=== PATIENT | female | born 1985 | race Caucasian/White ===

== ENCOUNTER 2018-09-01 18:27 | Inpatient (IN) | payer OTHER ==
[2018-09-01] MEDS ORDERED: LIDOCAINE 0.5% (PF) 5 MG/ML (50 ML SDV) SQ PRN (18:49)
[2018-09-01] MEDS ORDERED: TERBUTALINE 1 MG/ML VIAL SQ PRN (18:49)
[2018-09-01] MEDS ORDERED: METHYLERGONOVINE 0.2 MG/ML 1 ML AMP IM PRN (18:49)
[2018-09-01] MEDS ORDERED: CARBOPROST TROMETHAMINE 250 MCG/ML 1 ML AMP IM PRN (18:49)
[2018-09-01] MEDS ORDERED: OXYTOCIN 10 UNIT/ML 1 ML VIAL IM PRN (18:49)
--- NOTE | 2018-09-01 19:27 | P.HPOB ---
History of Present Illness H&P Date: 09/01/18 Chief Complaint: IUP @ 39 3/7 weeks, labor This is a pleasant 33-year-old 3 para 2001 at 39 3/7 weeks that presents to labor and delivery with complaints of painful contractions every 7 minutes. Patient denies loss of fluid or vaginal bleeding. Patient was checked in the office today noted to be 4/80/-2. Patient notes good movement. Patient has been receiving routine care with myself, she does struggle with anxiety and depression that are controlled with oral medications. On her anatomy ultrasound the fetus was noted to have dilated renal pelvis on further ultrasounds this finding resolved. On blood work she has a blood type of O+, rubella immune, RPR nonreactive, hepatitis B surface antigen negative, HIV negative, 1 hour Glucola was elevated at 145 but she did pass her 3 hour subsequently. Group beta strep was negative on 08/06/18. Review of Systems Constitutional: Denies chills, Denies fatigue, Denies fever Ears, nose, mouth and throat: Denies headache Cardiovascular: Reports leg edema Respiratory: Denies dyspnea Gastrointestinal: Denies nausea, Denies vomiting Genitourinary: Reports Past Medical History History of Any Multi-Drug Resistant Organisms: None Reported Smoking Status: Never smoker Medications and Allergies Home Medications Medication Instructions Recorded Confirmed Type Pnv,Calcium 72/Iron/Folic Acid 1 each PO DAILY 09/01/18 09/01/18 History [ Plus Tablet] buPROPion HCL [Wellbutrin XL] 300 mg PO HS 09/01/18 09/01/18 History busPIRone HCL 10 mg PO BID 09/01/18 09/01/18 History Allergies Allergy/AdvReac Type Severity Reaction Status Date / Time No Known Allergies Allergy Verified 09/01/18 18:44 Exam Osteopathic Statement: *. No significant issues noted on an osteopathic structural exam other than those noted in the History and Physical/Consult. Vital Signs Temp Pulse Resp BP Pulse Ox 09/01/18 19:03 97.5 F L 101 H 20 133/79 97 Intake and Output 09/01/18 09/01/18 09/01/18 06:59 14:59 22:59 Other: Weight 92.986 kg In general this is a well-nourished well-developed female in no acute distress, abdomen is noted to be gravid and appropriate for gestational age heart tones are noted to be reactive/category 1 she is cece irregularly, on cervical exam per RN /-2. Assessment and Plan (1) Term Current Visit: Yes Status: Acute Code(s): Z34.90 - ENCNTR FOR SUPRVSN OF NORMAL , UNSP, UNSP TRIMESTER SNOMED Code(s): 52905137 (2) Active labor Current Visit: Yes Status: Acute Code(s): MDH8700 - SNOMED Code(s): 983967842 Plan: Patient is admitted to labor and delivery for expectant management. She is considering epidural for pain control. Anticipate spontaneous vaginal delivery.
[2018-09-01] MEDS: LACTATED RINGERS 1,000 ML IV SCH ×2 (19:29→20:44)
[2018-09-01 19:52] LABS: Basophils % (A) 0 %; Eosinophils # (A) 0.1 k/uL (0-0.7); Eosinophils % (A) 1 %; HCT 39.7 % (34.0-46.0); HGB 12.8 gm/dL (11.4-16.0); Lymphocytes # (A) 1.8 k/uL (1.0-4.8); Lymphocytes % (A) 13 %; MCH 26.1 pg (25.0-35.0); MCHC 32.2 g/dL (31.0-37.0); MCV 80.8 fL (80.0-100.0); Mean Platelet Volume 6.7; Monocytes # (A) 0.7 k/uL (0-1.0); Monocytes % (A) 5 %; Neutrophils # (A) 11.2 k/uL (1.3-7.7); Neutrophils % (A) 79 %; Platelet Count 361 k/uL (150-450); RBC 4.91 m/uL (3.80-5.40); RDW 13.7 % (11.5-15.5); WBC 14.1 k/uL (3.8-10.6)
[2018-09-01 19:58] VITALS: BMI 32.1
[2018-09-01] MEDS ORDERED: ROPIVACAINE 5MG/ML 20ML VIAL ONE (20:17)
[2018-09-01] MEDS ORDERED: fentaNYL (PF) 50 MCG/ML 5 ML AMP ONE (20:17)
[2018-09-01] MEDS ORDERED: SODIUM CHLORIDE 0.9% 100 ML BAG ONE (20:17)
[2018-09-01] MEDS: buPROPion XL 300 MG TAB.ER.24H PO SCH (20:42)
[2018-09-01] MEDS: busPIRone HCl 10 MG TAB PO SCH (20:42)
[2018-09-01] MEDS ORDERED: OXYTOCIN 30 UNITS/500 ML NS 30 UNIT in SALINE 1 500ML.BAG IV SCH (20:45)
[2018-09-01] MEDS ORDERED: BENZOCAINE/MENTHOL SPRAY 1 GM/SPRAY AEROSOL TOPICAL PRN (21:42)
[2018-09-01] MEDS ORDERED: diphenhydrAMINE 25 MG CAP PO PRN (21:42)
[2018-09-01] MEDS ORDERED: diphenhydrAMINE 50 MG/ML 1 ML VIAL IVP PRN ×2 (21:42)
[2018-09-01] MEDS ORDERED: WITCH HAZEL 1 EACH MED..PAD TOPICAL PRN (21:42)
[2018-09-01] MEDS ORDERED: diphenhydrAMINE 50 MG CAP PO PRN (21:42)
[2018-09-01] MEDS ORDERED: HYDROcodone/APAP 5-325MG 1 EACH TAB PO PRN (21:42)
[2018-09-01] MEDS ORDERED: SIMETHICONE 80 MG CHEWABLE PO PRN (21:42)
[2018-09-01] MEDS ORDERED: LANOLIN CREAM 5 GM TUBE TOPICAL PRN (21:42)
[2018-09-01] MEDS ORDERED: HYDROCORTISONE 2.5% RECTAL CREAM 30 GM TUBE RECTAL PRN (21:42)
[2018-09-01] MEDS ORDERED: ZOLPIDEM 5 MG TAB PO PRN (21:42)
[2018-09-01] MEDS ORDERED: OXYTOCIN 20 UNITS/1000 ML NS 1,000 ML IV SCH (21:45)
--- NOTE | 2018-09-01 21:49 | P.PROBDLV ---
Vaginal Delivery Note - . Vaginal Delivery Note: This is a pleasant 33-year-old 3 para 2001 at 39-4/7 weeks that presents to labor and delivery with complaints of regular painful contractions. Patient was admitted became uncomfortable requested epidural placement by anesthesia. Patient's epidural was placed without difficulty by the anesthesia department. Soon after epidural was placed and she was comfortable amniotomy was performed and clear fluid was obtained. Patient patient's contractions were noted to be spaced out therefore Pitocin augmentation of labor was begun. Patient progressed to complete began pushing and had a normal spontaneous vaginal delivery of a viable male infant at 2126, weight of 7 lbs. 15 oz. with Apgars of 9 and 9 at one and 5 minutes respectively. After a two-minute delayed the umbo cord was doubly clamped and cut and the placenta was delivered spontaneously intact with a three-vessel cord being noted. Afterwards the uterus was noted to be firm and below the umbilicus. On inspection the patient's vaginal vault a small superficial laceration was noted this was repaired with a [id number] suture of 0 Vicryl. The vaginal vault was inspected once again hemostasis was appreciated throughout no further lacerations were noted. Estimated blood loss 200 mL, patient and infant tolerated delivery well and are resting comfortably.
[2018-09-02] MEDS: IBUPROFEN 600 MG TAB PO PRN ×4 (00:24→20:45)
[2018-09-02 07:28] LABS: Basophils % (A) 0 %; Eosinophils # (A) 0.1 k/uL (0-0.7); Eosinophils % (A) 1 %; HCT 33.8 % (34.0-46.0); HGB 10.9 gm/dL (11.4-16.0); Lymphocytes # (A) 1.5 k/uL (1.0-4.8); Lymphocytes % (A) 13 %; MCH 26.4 pg (25.0-35.0); MCHC 32.2 g/dL (31.0-37.0); Mean Platelet Volume 6.7; Monocytes # (A) 0.8 k/uL (0-1.0); Monocytes % (A) 7 %; Neutrophils # (A) 8.7 k/uL (1.3-7.7); Neutrophils % (A) 76 %; Platelet Count 301 k/uL (150-450); RBC 4.13 m/uL (3.80-5.40); RDW 13.8 % (11.5-15.5); WBC 11.4 k/uL (3.8-10.6)
[2018-09-02] MEDS: SENNOSIDES-DOCUSATE SODIUM 1 EACH TAB PO SCH ×2 (08:18→20:45)
[2018-09-02] MEDS: busPIRone HCl 10 MG TAB PO SCH ×2 (09:07→20:45)
--- NOTE | 2018-09-02 09:22 | P.PNOBGVD ---
Subjective - Subjective Principal diagnosis: PPD 1 Interval history: Patient is doing well status post normal spontaneous vaginal delivery. She is a billing and voiding without difficulty. She states her lochia is moderate, she is breast-feeding without difficulty. She states her pain is well-controlled. She denies concerns Patient reports: Reports appetite normal, Reports voiding normally, Reports pain well controlled : doing well Objective - Latest Vital Signs Latest vital signs: Vital Signs Temp Pulse Resp BP Pulse Ox 09/02/18 08:00 97.9 F 107 H 18 147/89 09/02/18 04:00 97.9 F 92 16 121/79 09/01/18 23:40 98.7 F 86 16 125/71 09/01/18 23:05 82 16 119/62 09/01/18 22:40 96 16 126/60 09/01/18 22:20 97 16 137/69 09/01/18 22:05 91 16 127/65 09/01/18 21:55 95 16 134/62 09/01/18 21:40 97.8 F 111 H 16 131/61 09/01/18 19:28 97.5 F L 101 H 16 133/79 09/01/18 19:03 97.5 F L 101 H 20 133/79 97 Intake and Output 09/01/18 09/02/18 09/02/18 22:59 06:59 14:59 Intake Total 1000 Balance 1000 Intake: Intake, IV Titration 1000 Amount Lactated Ringers 1,000 ml 1000 @ 125 mls/hr IV .Q8H [facility] Rx#:[id number] Other: # Voids 1 1 Weight 92.986 kg - Exam Extremities: Present: normal Abdomen: Present: normal appearance, soft Uterus: Present: normal, firm - Labs Labs: Abnormal Lab Results - Last 24 Hours (Table) 09/01/18 09/02/18 Range/Units 19:35 06:24 WBC 14.1 H 11.4 H (3.8-10.6) k/uL Hgb 10.9 L (11.4-16.0) gm/dL Hct 33.8 L (34.0-46.0) % Neutrophils # 11.2 H 8.7 H (1.3-7.7) k/uL Assessment and Plan (1) Term Current Visit: Yes Status: Acute Code(s): Z34.90 - ENCNTR FOR SUPRVSN OF NORMAL , UNSP, UNSP TRIMESTER SNOMED Code(s): 72173592 (2) Active labor Current Visit: Yes Status: Acute Code(s): NMC6065 - SNOMED Code(s): 1182 59131 (3) Status post vaginal delivery Current Visit: Yes Status: Acute Code(s): JLB0004 - SNOMED Code(s): 201764446 Plan: Will continue routine care.
[2018-09-02] MEDS: PRENATAL VIT-IRON-FOLIC ACID 1 EACH CAP PO SCH (11:18)
[2018-09-02] MEDS: ACETAMINOPHEN TAB 325 MG TAB PO PRN (15:57)
[2018-09-02] MEDS: buPROPion XL 300 MG TAB.ER.24H PO SCH (20:45)
[2018-09-03 00:44] VITALS: RESP 16
--- NOTE | 2018-09-03 08:03 | P.DS ---
Providers Date of admission: 09/01/18 18:49 Expected date of discharge: 09/03/18 Attending physician: Didi Dickinson Primary care physician: Stated None - Discharge Diagnosis(es) (1) Term Current Visit: Yes Status: Acute (2) Active labor Current Visit: Yes Status: Acute (3) Status post vaginal delivery Current Visit: Yes Status: Acute Hospital Course: This is a pleasant 33-year-old 3 para 2001 at 39-4/7 weeks that presented to labor and delivery with complaints of regular painful contractions. Patient was admitted became uncomfortable and requesting epidural placement by the anesthesia department. This was placed without difficulty. Patient progressed to complete began pushing and had a normal spontaneous vaginal delivery of a viable male infant at 2126, weight of 7 lbs. 15 oz. with Apgars of 9 and 9 at one and 5 minutes respectively. Patient has done well . She is ambulating and voiding without difficulty. She is tolerating a regular diet without nausea or vomiting. Her lochia is moderate. She is breast- feeding/pumping as the infant is in the nursery secondary to jaundice. She denies concerns this morning and is ready for discharge home. Patient Condition at Discharge: Good Plan - Discharge Summary Discharge Rx Participant: Yes New Discharge Prescriptions: No Action busPIRone HCL 10 mg PO BID buPROPion HCL [Wellbutrin XL] 300 mg PO HS Pnv,Calcium 72/Iron/Folic Acid [ Plus Tablet] 1 each PO DAILY Discharge Medication List Pnv,Calcium 72/Iron/Folic Acid [ Plus Tablet] 1 each PO DAILY 09/01/18 [History] buPROPion HCL [Wellbutrin XL] 300 mg PO HS 09/01/18 [History] busPIRone HCL 10 mg PO BID 09/01/18 [History] Follow up Appointment(s)/Referral(s): Didi Dickinson DO [Doctor of Osteopathic Medicine] - 4 Weeks Patient Instructions/Handouts: Vaginal Delivery (DC), Vaginal Delivery (GEN) Discharge Disposition: HOME SELF-CARE
[2018-09-03] MEDS: busPIRone HCl 10 MG TAB PO SCH (08:18)
[2018-09-03] MEDS: SENNOSIDES-DOCUSATE SODIUM 1 EACH TAB PO SCH (08:19)
[2018-09-03] MEDS: ACETAMINOPHEN TAB 325 MG TAB PO PRN (08:19)
[2018-09-03] MEDS: PRENATAL VIT-IRON-FOLIC ACID 1 EACH CAP PO SCH (09:50)
[2018-09-03 12:46] VITALS: BP 132/79; PULSE 92; TEMP 97.8
== END 2018-09-03 14:18 | disposition home or self-care (01) | DRG 807 ==
LOC: FBPOP 18:27 → 4FBP 18:49 → 6PED 09-03 06:44
PROVIDERS: ADMIT Obstetrics & Gynecology; ATTEND Obstetrics & Gynecology Obstetrics
DX: O71.4 Obstetric high vaginal laceration alone (principal); Z37.0 Single live birth; Z3A.39 39 weeks gestation of pregnancy; F32.9 Major depressive disorder, single episode, unspecified; F41.9 Anxiety disorder, unspecified; O99.344 Other mental disorders complicating childbirth; Z79.899 Other long term (current) drug therapy
CPT/HCPCS: 59025; 85025; 86850; 86900; 86901; 99213

== ENCOUNTER → 2018-11-18 | Outpatient (CLI) | payer OTHER ==
[2018-11-18 14:59] LABS: Basophils % (A) 1 %; Eosinophils # (A) 0.1 k/uL (0-0.7); Eosinophils % (A) 2 %; HCT 41.1 % (34.0-46.0); Lymphocytes # (A) 1.6 k/uL (1.0-4.8); Lymphocytes % (A) 25 %; MCH 25.7 pg (25.0-35.0); MCHC 31.6 g/dL (31.0-37.0); MCV 81.5 fL (80.0-100.0); Mean Platelet Volume 6.2; Monocytes # (A) 0.5 k/uL (0-1.0); Monocytes % (A) 9 %; Neutrophils # (A) 3.8 k/uL (1.3-7.7); Neutrophils % (A) 61 %; Platelet Count 391 k/uL (150-450); RBC 5.05 m/uL (3.80-5.40); RDW 13.3 % (11.5-15.5); WBC 6.2 k/uL (3.8-10.6)
== END | disposition home or self-care (01) ==
LOC: LABPAT 13:48
PROVIDERS: ATTEND Obstetrics & Gynecology Obstetrics
DX: Z01.812 Encounter for preprocedural laboratory examination (principal)
CPT/HCPCS: 36415; 85025

== ENCOUNTER 2018-12-02 06:32 | Day surgery (SDC) | payer OTHER ==
[2018-11-26 08:31] VITALS: BMI 29.7
--- NOTE | 2018-12-01 13:05 | P.HPOB ---
History of Present Illness H&P Date: 12/01/18 Chief Complaint: family staus complete, undesires fertility This is a pleasant 33yo s/p on 09/01. she states she is odne with childbearing and desires permanent sterilization. menses are regular q month with a moderate flow x 3 Review of Systems Constitutional: Denies chills, Denies fatigue, Denies fever Ears, nose, mouth and throat: Denies headache Cardiovascular: Denies chest pain, Denies edema Respiratory: Denies dyspnea Gastrointestinal: Denies constipation, Denies diarrhea, Denies nausea, Denies vomiting Menstruation: Reports period normal Past Medical History Past Medical History: Sleep Apnea/CPAP/BIPAP Additional Past Medical History / Comment(s): History of Kidney Infection, Hearing impairment/issues, Migraines, History of Any Multi-Drug Resistant Organisms: None Reported Past Surgical History: Cholecystectomy Additional Past Surgical History / Comment(s): Eye Surgery Past Anesthesia/Blood Transfusion Reactions: No Reported Reaction Smoking Status: Never smoker - Past Family History Father Family Medical History: Cancer, Coronary Artery Disease (CAD), Hypertension Additional Family Medical History / Comment(s): Stomach Cancer Mother Family Medical History: Cancer Additional Family Medical History / Comment(s): Breast Cancer Medications and Allergies Home Medications Medication Instructions Recorded Confirmed Type buPROPion HCL [Wellbutrin XL] 300 mg PO HS 09/01/18 11/26/18 History busPIRone HCL 10 mg PO BID 09/01/18 11/26/18 History Allergies Allergy/AdvReac Type Severity Reaction Status Date / Time No Known Allergies Allergy Verified 11/26/18 08:25 Exam Osteopathic Statement: *. No significant issues noted on an osteopathic structural exam other than those noted in the History and Physical/Consult. targeted physical exam done in general this is a well nourished well dveloped f emale in no acute distress, lungs are CTX b/l, heart had RRR, abdomen is soft and NT Assessment and Plan (1) Family planning Status: Acute Code(s): Z30.09 - ENCOUNTER FOR OTH GENERAL CNSL AND ADVICE ON CONTRACEPTION SNOMED Code(s): 857454041 Plan: Plan LTL with falope rings, surgery reviewed and all questions answered. risks reviewed including but not limited to infection bleeding damage to bladder bowel or ureteric injury. failure rates of 2-06/999 reviewed. she states understanding and wished to proceed.
[~2018-12-02 06:32] MED LIST: DEXAMETHASONE SOD PHOSPHATE 10 MG/ML 1 ML VIAL IV ONE; LACTATED RINGERS 1,000 ML IV SCH; LIDOCAINE 1% 20 ML VIAL (10MG/ML) FOR IV START INTRADERMA PRN; MIDAZOLAM 2 MG/2 ML VIAL IV PRN; Pre Op ABX Message 1 EACH MISC MISCELLANE ONE; SCOPOLAMINE 1.5MG/72HR PATCH TRANSDERM ONE
[2018-12-02] MEDS: ONDANSETRON 4 MG/2 ML VIAL IVP ONE ×2 (07:02→08:41)
[2018-12-02] MEDS ORDERED: KETOROLAC 30 MG/ML 1 ML VIAL ONE (07:26)
[2018-12-02] MEDS ORDERED: LIDOCAINE 1% INJ 10MG/ML (20 ML MDV) ONE (07:26)
[2018-12-02] MEDS ORDERED: GLYCOPYRROLATE 0.2 MG/ML 2 ML VIAL ONE (07:26)
[2018-12-02] MEDS ORDERED: MIDAZOLAM 2 MG/2 ML VIAL ONE (07:26)
[2018-12-02] MEDS ORDERED: NEOSTIGMINE 1 MG/ML 10 ML VIAL ONE (07:26)
[2018-12-02] MEDS ORDERED: fentaNYL (PF) 50 MCG/ML 2 ML AMP ONE (07:26)
[2018-12-02] MEDS ORDERED: ROCURONIUM BROMIDE 10 MG/ML 10 ML VIAL IV ONE (07:26)
[2018-12-02] MEDS ORDERED: PROPOFOL 10 MG/ML 20 ML VIAL IV ONE (07:26)
[2018-12-02] MEDS ORDERED: BUPIVACAINE (PF) 0.25% 30 ML VIAL SQ ONE ×3 (07:39→08:03)
[2018-12-02] MEDS ORDERED: LIDOCAINE 2% GEL 30 ML TUBE TOPICAL ONE ×2 (07:39→08:03)
[2018-12-02] MEDS ORDERED: FERRIC SUBSULFATE (MONSELS) JAR TOPICAL ONE (08:20)
[2018-12-02 08:35] VITALS: TEMP 97.4
[2018-12-02] MEDS: HYDROmorphone 0.5 MG/0.5 ML SYRINGE IVP PRN ×4 (08:40→09:05)
--- NOTE | 2018-12-02 08:55 | P.OP ---
Date of Procedure: 12/02/18 Preoperative Diagnosis: undesired fertility, family status complete Postoperative Diagnosis: same Procedure(s) Performed: LTL with filshie clips Anesthesia: GETA Surgeon: Didi Dickinson Estimated Blood Loss (ml): 2 IV fluids (ml): 550 Urine output (ml): 100 Pathology: none sent Condition: stable Disposition: PACU Indications for Procedure: pt request for permanent sterilization. Operative Findings: normal pelvic anatomy. Description of Procedure: Patient is seen in the preoperative area and informed consent is obtained. Risks of tubal ligation along with failure rates are reviewed and patient states understanding all cautions were answered. Patient was taken back to the operating suite where general anesthesia is obtained without difficulty by the anesthesia department. She is prepped and draped in the normal sterile fashion in the dorsal lithotomy position. A weighted speculum was placed in the posterior vaginal vault the anterior lip of the cervix was visualized and grasped with a single-tooth tenaculum. An acorn uterine manipulator was advanced into the cervix as a means to manipulate the uterus throughout the procedure. Prior to this a red rubber catheter was used to drain the bladder under sterile technique. 100 mL of clear yellow urine was drained from the bladder. Attention was then turned to the patient's abdomen where in the umbilical fold a small skin incision is made. Through this incision appears needles placed. Once the Veress needle was deemed to be in the proper position with a drop of CO2 pressure with insufflation of CO2 gas, CO2 insufflation was allowed to occur. 3 L of gas is used to obtain pneumoperitoneum. At this time a 5 mm trocar and sleeve is placed through the skin incision toward the pneumoperitoneum under direct visualization. The trocar is removed and the sheath remains in place. On inspection the patient's pelvis the above-noted findings are visualized in the right lower quadrant and additional 8 mm port is placed under direct visualization. Through this port the filshie clip applicator is placed the left tube was grasped and the applicators used according to poultry offal worker's instructions this was repeated on the opposite side. Both tubes are noted to be occluded there is no bleeding noted from the tubal sites. At this time all instruments removed from the patient's abdomen the skin incisions are closed with 4-0 Vicryl in a subcu Fashion Steri-Strips and sterile dressings were applied as needed. Attention turned to the patient's vaginal vault the single- tooth tenaculum was taken off of the cervix small amount of bleeding is noted therefore Monsel solution is placed on the anterior lip of the cervix All counts are correct 2 patient tolerated procedure well and was taken to the recovery room awake in stable condition
[2018-12-02 09:51] VITALS: RESP 18
[2018-12-02 11:47] VITALS: BP 136/91; PULSE 82
== END 2018-12-02 11:45 | disposition home or self-care (01) ==
LOC: OR 06:32
PROVIDERS: ATTEND Obstetrics & Gynecology Obstetrics
DX: Z30.2 Encounter for sterilization (principal); G47.33 Obstructive sleep apnea (adult) (pediatric); F41.9 Anxiety disorder, unspecified; F32.9 Major depressive disorder, single episode, unspecified; G43.909 Migraine, unspecified, not intractable, without status migrainosus; H91.90 Unspecified hearing loss, unspecified ear; Z86.19 Personal history of other infectious and parasitic diseases; Z79.899 Other long term (current) drug therapy; Z91.012 Allergy to eggs; Z88.4 Allergy status to anesthetic agent; Z99.89 Dependence on other enabling machines and devices; Z90.49 Acquired absence of other specified parts of digestive tract; Z98.818 Other dental procedure status; Z98.890 Other specified postprocedural states; Z82.49 Family history of ischemic heart disease and other diseases of the circulatory system; Z80.0 Family history of malignant neoplasm of digestive organs; Z80.3 Family history of malignant neoplasm of breast
CPT/HCPCS: 58671; 81025; J2250; J1100; J2710; J2405; J2001; J3010; J1885; J2704; J1170

== ENCOUNTER 2019-02-27 22:36 | Emergency (ER) | payer OTHER ==
[2019-02-27 22:41] VITALS: BP 136/72; PULSE 89; RESP 15; TEMP 97.5
[2019-02-27] MEDS ORDERED: KETOROLAC 30 MG/ML 1 ML VIAL IM STA (23:11)
[2019-02-27] MEDS ORDERED: AMOXIC-POT CLAV 875MG STARTER 2 EACH TABLET PO STA (23:11)
--- NOTE | 2019-02-27 23:11 | ED ---
General Adult HPI - General Chief complaint: ENT Stated complaint: Ear Pain URI Time Seen by Provider: 02/27/19 22:45 Source: patient, RN notes reviewed Mode of arrival: ambulatory Limitations: no limitations - History of Present Illness Initial comments: 33-year-old female Without any signficant past medical history presents to the emergency department for a chief complaint of left ear pain. Patient states she woke up with us about an hour ago. She has had congestion for about the last week. Denies any fevers. Denies any history of diabetes. Denies any pain behind the left ear. Denies any drainage from the left ear.Patient has no other complaints at this time including shortness of breath, chest pain, abdominal pain, nausea or vomiting, headache, or visual changes. - Related Data Home Medications Medication Instructions Recorded Confirmed buPROPion HCL [Wellbutrin XL] 300 mg PO HS 09/01/18 02/27/19 busPIRone HCL 10 mg PO BID 09/01/18 02/27/19 Allergies Allergy/AdvReac Type Severity Reaction Status Date / Time No Known Allergies Allergy Verified 02/27/19 22:41 Review of Systems ROS Statement: Those systems with pertinent positive or pertinent negative responses have been documented in the HPI. ROS Other: All systems not noted in ROS Statement are negative. Past Medical History Past Medical History: Sleep Apnea/CPAP/BIPAP Additional Past Medical History / Comment(s): History of Kidney Infection, Hearing impairment/issues, Migraines, History of Any Multi-Drug Resistant Organisms: None Reported Past Surgical History: Cholecystectomy Additional Past Surgical History / Comment(s): Eye Surgery Past Anesthesia/Blood Transfusion Reactions: No Reported Reaction Past Psychological History: Anxiety, Depression Smoking Status: Never smoker Past Alcohol Use History: None Reported Past Drug Use History: None Reported - Past Family History Father Family Medical History: Cancer, Coronary Artery Disease (CAD), Hypertension Additional Family Medical History / Comment(s): Stomach Cancer Mother Family Medical History: Cancer Additional Family Medical History / Comment(s): Breast Cancer General Exam Limitations: no limitations General appearance: alert, in no apparent distress Head exam: Present: atraumatic, normocephalic, normal inspection Eye exam: Present: normal appearance, PERRL, EOMI. Absent: scleral icterus, conjunctival injection, periorbital swelling ENT exam: Present: normal exam, normal oropharynx, normal external ear exam (no exudative material. No tenderness of the pinna or tragus.), other (No mastoid tenderness to palpation or percussion. no erythema or edema to the mastoid.). Absent: mucous membranes moist, TM's normal bilaterally (Left TM bulding, erythematous. no perforation present.) Neck exam: Present: normal inspection, full ROM. Absent: tenderness, meningismus, lymphadenopathy Respiratory exam: Present: normal lung sounds bilaterally. Absent: respiratory distress, wheezes, rales, rhonchi, stridor Cardiovascular Exam: Present: regular rate, normal rhythm, normal heart sounds. Absent: systolic murmur, diastolic murmur, rubs, gallop, clicks Neurological exam: Present: alert Course Vital Signs 02/27/19 22:39 Temperature 97.5 F L Pulse Rate 89 Respiratory 15 Rate Blood Pressure 136/72 O2 Sat by Pulse 100 Oximetry Medical Decision Making - Medical Decision Making 33 yr female without any immunosuppressive history presents to the emergency department for left ear pain. This is been ongoing one hour. Exam reveals an erythematous and mildly bulging left tympanic membrane. No mastoid tenderness edema or swelling. No erythema of the external auditory canal nor exudative drainage. No tenderness to the pinna or tragus indicative of an external otitis media. Patient was given Toradol here in the emergency department. No chance of as she has a tubal. No ALLERGIES to medications. She'll be started on Augmentin for otitis media. She'll follow up with primary care in 1- 2 days. She'll return if she has any worsening symptoms. Disposition Clinical Impression: Otitis media Disposition: HOME SELF-CARE Condition: Good Instructions (If sedation given, give patient instructions): Ear Infection (ED) Additional Instructions: Take Motrin and Tylenol alternating every 3 hours for pain. Take Augmentin as directed. Follow-up with primary care in 1-2 days. Return to the emergency department if you have any worsening symptoms. Is patient prescribed a controlled substance at d/c from ED?: No Referrals: Gricelda Sanchez MD [Primary Care Provider] - 1-2 days Time of Disposition: 23:20
== END 2019-02-27 23:28 | disposition home or self-care (01) ==
LOC: EC 22:36
DX: H66.92 Otitis media, unspecified, left ear (principal); H91.90 Unspecified hearing loss, unspecified ear; F41.9 Anxiety disorder, unspecified; F32.9 Major depressive disorder, single episode, unspecified; G47.30 Sleep apnea, unspecified; Z99.89 Dependence on other enabling machines and devices; Z79.899 Other long term (current) drug therapy; Z98.51 Tubal ligation status
CPT/HCPCS: 96372; 99282; J1885

== ENCOUNTER 2019-03-21 12:28 | Emergency (ER) | payer OTHER ==
[2019-03-21] MEDS ORDERED: SODIUM CHLORIDE 0.9% 1,000 ML IV STA (14:31)
--- NOTE | 2019-03-21 14:38 | ED ---
General Adult HPI - General Chief complaint: Urogenital Stated complaint: left flank pain Time Seen by Provider: 03/21/19 14:21 Source: patient, RN notes reviewed, old records reviewed Mode of arrival: ambulatory Limitations: no limitations - History of Present Illness Initial comments: 33-year-old female patient with past medical history of cholecystectomy, tubal ligation presents to ED for chief complaint of approximately 5 days of left flank pain and dysuria. Reports she has felt nauseous without any emesis. Denies any anterior abdominal pain. Denies any reason for immunocompromise state. Denies any concern for STD. Denies any other complaints at this time. Systemic: Pt denies fatigue, fever/chills, rash. Pt denies weakness, night sweats, weight loss. Neuro: Pt denies headache, visual disturbances, syncope or pre-syncope. HEENT: Pt denies ocular discharge or irritation, otalgia, rhinorrhea, pharyngitis or notable lymphadenopathy. Cardiopulmonary: Pt denies chest pain, SOB, heart palpitations, dyspnea on exertion. Abdominal/GI: Pt denies abdominal pain, v/d. : Denies new onset urinary or bowel incontinence. MSK: Pt denies myalgia, loss of strength or function in extremities. Neuro: Pt denies new onset weakness, paresthesias. - Related Data Home Medications Medication Instructions Recorded Confirmed buPROPion HCL [Wellbutrin XL] 300 mg PO HS 09/01/18 02/27/19 busPIRone HCL 10 mg PO BID 09/01/18 02/27/19 Previous Rx's Medication Instructions Recorded Amoxicillin/Potassium Clav 1 tab PO Q12HR #20 tab 02/27/19 [Augmentin 875-125 Tablet] Cephalexin [Keflex] 500 mg PO Q6HR 14 Days #56 cap 03/21/19 Allergies Allergy/AdvReac Type Severity Reaction Status Date / Time No Known Allergies Allergy Verified 03/21/19 12:59 Review of Systems ROS Statement: Those systems with pertinent positive or pertinent negative responses have been documented in the HPI. ROS Other: All systems not noted in ROS Statement are negative. Past Medical History Past Medical History: Sleep Apnea/CPAP/BIPAP Additional Past Medical History / Comment(s): History of Kidney Infection, Hearing impairment/issues, Migraines, History of Any Multi-Drug Resistant Organisms: None Reported Past Surgical History: Cholecystectomy Additional Past Surgical History / Comment(s): Eye Surgery Past Anesthesia/Blood Transfusion Reactions: No Reported Reaction Past Psychological History: Anxiety, Depression Smoking Status: Never smoker Past Alcohol Use History: None Reported Past Drug Use History: None Reported - Past Family History Father Family Medical History: Cancer, Coronary Artery Disease (CAD), Hypertension Additional Family Medical History / Comment(s): Stomach Cancer Mother Family Medical History: Cancer Additional Family Medical History / Comment(s): Breast Cancer General Exam - General Exam Comments Initial Comments: Constitutional: NAD, AOX3, Pt has pleasant affect. HEENT: NC/AT, trachea midline, neck supple, no lymphadenopathy. Posterior pharynx non erythematous, without exudates. External ears appear normal, without discharge. Mucous membranes moist. Eyes PERRLA, EOM intact. There is no scleral icterus. No pallor noted. Cardiopulmonary: RRR, no murmurs, rubs or gallops, no JVD noted. Lungs CTAB in anterior and posterior medina. No peripheral edema. Abdominal exam: Abdomen soft and non-distended. Abdomen non-tender to palpation in all 4 quadrants. Bowel sounds active in LLQ. No hepatosplenomegaly. No ecchymosis. Left flank mildly tender to palpation. No skin changes. Neuro: CN II-XII grossly intact. No nuchal rigidity. No raccon eyes, no michelle sign, no hemotympanum. No cervical spinal tenderness. MSK: No posterior calf tenderness bilaterally, homans sign negative bilaterally. Posterior tibialis and radial pulse +2 bilaterally. Sensation intact in upper and lower extremities. Full active ROM in upper and lower extremities, 5/5 streg nth. Limitations: no limitations Course Vital Signs 03/21/19 12:59 Temperature 97.8 F Pulse Rate 100 Respiratory 18 Rate Blood Pressure 134/92 O2 Sat by Pulse 99 Oximetry Medical Decision Making - Medical Decision Making 33-year-old female patient with past medical history of cholecystectomy, tubal ligation presents to ED for chief complaint of approximately 5 days of left flank pain and dysuria. Reports she has felt nauseous without any emesis. Denies any anterior abdominal pain. Denies any reason for immunocompromise state. Denies any concern for STD. Denies any other complaints at this time. Patient vital signs stable, afebrile. Physical exam displayed left flank mildly tender. CBC, CMP lactic noncompressive. UA displayed a urinary tract infection. Patient reports that she is not having history of stones and this feels identical to her UTIs in the past. Patient will discharge with follow-up with primary care provider will take antibiotics as directed and will return to ER if condition worsens in any way. Strict precautions discussed. Case discussed with Dr. Moura. - Lab Data Result diagrams: 03/21/19 14:46 03/21/19 14:46 Lab Results 03/21/19 03/21/19 03/21/19 Range/Units 14:46 14:46 Unknown WBC 10.2 (3.8-10.6) k/uL RBC 5.19 (3.80-5.40) m/uL Hgb 13.9 (11.4-16.0) gm/dL Hct 41.6 (34.0-46.0) % MCV 80.2 (80.0-100.0) fL MCH 26.9 (25.0-35.0) pg MCHC 33.5 (31.0-37.0) g/dL RDW 12.5 (11.5-15.5) % Plt Count 455 H (150-450) k/uL Neutrophils % 80 % Lymphocytes % 12 % Monocytes % 5 % Eosinophils % 1 % Basophils % 0 % Neutrophils # 8.1 H (1.3-7.7) k/uL Lymphocytes # 1.2 (1.0-4.8) k/uL Monocytes # 0.5 (0-1.0) k/uL Eosinophils # 0.1 (0-0.7) k/uL Basophils # 0.0 (0-0.2) k/uL Sodium 139 (137-145) mmol/L Potassium 4.7 (3.5-5.1) mmol/L Chloride 105 (98-107) mmol/L Carbon Dioxide 26 (22-30) mmol/L Anion Gap 8 mmol/L BUN 12 (7-17) mg/dL Creatinine 0.66 (0.52-1.04) mg/dL Est GFR (CKD-EPI)AfAm >90 (>60 ml/min/1.73 sqM) Est GFR (CKD-EPI)NonAf >90 (>60 ml/min/1.73 sqM) Glucose 102 H (74-99) mg/dL Calcium 9.7 (8.4-10.2) mg/dL Total Bilirubin 0.5 (0.2-1.3) mg/dL AST 24 (14-36) U/L ALT 31 (9-52) U/L Alkaline Phosphatase 75 (38-126) U/L Total Protein 7.5 (6.3-8.2) g/dL Albumin 4.5 (3.5-5.0) g/dL Lipase 77 (23-300) U/L Urine Color Urine Appearance (Clear) Urine pH (5.0-8.0) Ur Specific [place] (1.001-1.035) Urine Protein (Negative) Urine Glucose (UA) (Negative) Urine Ketones (Negative) Urine Blood (Negative) Urine Nitrite (Negative) Urine Bilirubin (Negative) Urine Urobilinogen (<2.0) mg/dL Ur Leukocyte Esterase (Negative) Urine RBC (0-5) /hpf Urine WBC (0-5) /hpf Urine WBC Clumps (None) /hpf Ur Squamous Epith Cells (0-4) /hpf Urine Bacteria (None) /hpf Urine Mucus (None) /hpf Urine HCG, Qual Not Detected (Not Detectd) 03/21/19 Range/Units Unknown WBC (3.8-10.6) k/uL RBC (3.80-5.40) m/uL Hgb (11.4-16.0) gm/dL Hct (34.0-46.0) % MCV (80.0-100.0) fL MCH (25.0-35.0) pg MCHC (31.0-37.0) g/dL RDW (11.5-15.5) % Plt Count (150-450) k/uL Neutrophils % % Lymphocytes % % Monocytes % % Eosinophils % % Basophils % % Neutrophils # (1.3-7.7) k/uL Lymphocytes # (1.0-4.8) k/uL Monocytes # (0-1.0) k/uL Eosinophils # (0-0.7) k/uL Basophils # (0-0.2) k/uL Sodium (137-145) mmol/L Potassium (3.5-5.1) mmol/L Chloride (98-107) mmol/L Carbon Dioxide (22-30) mmol/L Anion Gap mmol/L BUN (7-17) mg/dL Creatinine (0.52-1.04) mg/dL Est GFR (CKD-EPI)AfAm (>60 ml/min/1.73 sqM) Est GFR (CKD-EPI)NonAf (>60 ml/min/1.73 sqM) Glucose (74-99) mg/dL Calcium (8.4-10.2) mg/dL Total Bilirubin (0.2-1.3) mg/dL AST (14-36) U/L ALT (9-52) U/L Alkaline Phosphatase (38-126) U/L Total Protein (6.3-8.2) g/dL Albumin (3.5-5.0) g/dL Lipase (23-300) U/L Urine Color Yellow Urine Appearance Cloudy H (Clear) Urine pH 5.5 (5.0-8.0) Ur Specific [place] 1.015 (1.001-1.035) Urine Protein Trace H (Negative) Urine Glucose (UA) Negative (Negative) Urine Ketones Negative (Negative) Urine Blood Trace H (Negative) Urine Nitrite Positive H (Negative) Urine Bilirubin Negative (Negative) Urine Urobilinogen <2.0 (<2.0) mg/dL Ur Leukocyte Esterase Large H (Negative) Urine RBC 18 H (0-5) /hpf Urine WBC >182 H (0-5) /hpf Urine WBC Clumps Few H (None) /hpf Ur Squamous Epith Cells 5 H (0-4) /hpf Urine Bacteria Occasional H (None) /hpf Urine Mucus Rare H (None) /hpf Urine HCG, Qual (Not Detectd) Disposition Clinical Impression: UTI (urinary tract infection) Disposition: HOME SELF-CARE Condition: Stable Instructions (If sedation given, give patient instructions): Urinary Tract Infection in Women (ED) Additional Instructions: Follow-up with primary care provider tomorrow. Take antibiotic as directed. Return to ER if condition worsens in any way. Prescriptions: Cephalexin [Keflex] 500 mg PO Q6HR 14 Days #56 cap Is patient prescribed a controlled substance at d/c from ED?: No Referrals: Gricelda Sanchez MD [Primary Care Provider] - 1-2 days
[2019-03-21 14:56] LABS: Basophils % (A) 0 %; Eosinophils # (A) 0.1 k/uL (0-0.7); Eosinophils % (A) 1 %; HCT 41.6 % (34.0-46.0); HGB 13.9 gm/dL (11.4-16.0); Lymphocytes # (A) 1.2 k/uL (1.0-4.8); Lymphocytes % (A) 12 %; MCH 26.9 pg (25.0-35.0); MCHC 33.5 g/dL (31.0-37.0); MCV 80.2 fL (80.0-100.0); Mean Platelet Volume 6.2; Monocytes # (A) 0.5 k/uL (0-1.0); Monocytes % (A) 5 %; Neutrophils # (A) 8.1 k/uL (1.3-7.7); Neutrophils % (A) 80 %; Platelet Count 455 k/uL (150-450); RBC 5.19 m/uL (3.80-5.40); RDW 12.5 % (11.5-15.5); WBC 10.2 k/uL (3.8-10.6)
[2019-03-21 15:02] LABS: Appearance,Urine Cloudy (Clear); Bacteria,Urine Occasional /hpf; Bilirubin,Urine Negative (Negative); Blood,Urine Trace (Negative); Color,Urine Yellow; Glucose,Urine (UA) Negative (Negative); Ketones,Urine Negative (Negative); Leukocyte Esterase,Urine Large (Negative); Mucus,Urine Rare /hpf; Nitrite,Urine Positive (Negative); PH, Urine 5.5 (5.0-8.0); Protein,Urine Trace (Negative); RBC,Urine 18 /hpf (0-5); Specific Gravity,Urine 1.015 (1.001-1.035); Squamous Epithelial Cell,Urine 5 /hpf (0-4); Urobilinogen,Urine <2.0 mg/dL (<2.0)
[2019-03-21 15:13] LABS: ALT 31 U/L (9-52); AST 24 U/L (14-36); African American GFR (CKD) >90 (>60 ml/min/1.73 sqM); Albumin 4.5 g/dL (3.5-5.0); Alkaline Phosphatase 75 U/L (38-126); Anion Gap 8 mmol/L; Blood Urea Nitrogen 12 mg/dL (7-17); Calcium 9.7 mg/dL (8.4-10.2); Carbon Dioxide 26 mmol/L (22-30); Chloride 105 mmol/L (98-107); Glucose 102 mg/dL (74-99); Non-African American GFR(CKD) >90 (>60 ml/min/1.73 sqM); Potassium 4.7 mmol/L (3.5-5.1); Sodium 139 mmol/L (137-145); Total Bilirubin 0.5 mg/dL (0.2-1.3); Total Protein 7.5 g/dL (6.3-8.2)
[2019-03-21] MEDS ORDERED: CEPHALEXIN 500MG STARTER PACK 4 CAP BTL PO STA (16:00)
[2019-03-21] MEDS ORDERED: KETOROLAC 30 MG/ML 1 ML VIAL IVP STA (16:00)
[2019-03-21 16:20] VITALS: BP 138/79; PULSE 77; RESP 16; TEMP 98.4
== END 2019-03-21 16:20 | disposition home or self-care (01) ==
LOC: EC 12:28
DX: N39.0 Urinary tract infection, site not specified (principal); R11.0 Nausea; G47.30 Sleep apnea, unspecified; H91.90 Unspecified hearing loss, unspecified ear; F32.9 Major depressive disorder, single episode, unspecified; F41.9 Anxiety disorder, unspecified; Z79.899 Other long term (current) drug therapy; Z90.49 Acquired absence of other specified parts of digestive tract; Z98.51 Tubal ligation status; Z99.89 Dependence on other enabling machines and devices; Z80.0 Family history of malignant neoplasm of digestive organs
CPT/HCPCS: 99284; 96365; 96375; 96361; 36415; 80053; 83690; 85025; 81001; 81025; 87086; 87077; 87186; J0696; J1885

== ENCOUNTER → 2019-03-27 | Outpatient (CLI) | payer OTHER ==
--- NOTE | 2019-03-27 14:08 | US ---
EXAMINATION TYPE: US kidneys/renal and bladder DATE OF EXAM: 03/27/2019 COMPARISON: NONE CLINICAL HISTORY: N39.498 urinary incontinence. Recent UTI, urinary incontinence, left flank pain EXAM MEASUREMENTS: Right Kidney: 10.0 x 4.4 x 4.5 cm Left Kidney: 11.0 x 5.6 x 4.6 cm Right Kidney: Extrarenal pelvis Left Kidney: no hydronephrosis or masses seen Bladder: wnl Bilateral Jets seen: yes There is no evidence for hydronephrosis at this point in time. No nephrolithiasis is seen. No sayra s are identified. The urinary bladder is anechoic. Bilateral ureteral jets are seen. IMPRESSION: No hydronephrosis or nephrolithiasis.
== END | disposition home or self-care (01) ==
LOC: RADUSWWP 13:33
PROVIDERS: ATTEND Internal Medicine
DX: N39.498 Other specified urinary incontinence (principal)
CPT/HCPCS: 76770

== ENCOUNTER 2020-01-04 17:38 | Emergency (ER) | payer OTHER ==
[2020-01-04 17:45] VITALS: RESP 18; TEMP 98.3
--- NOTE | 2020-01-04 19:57 | ED ---
Psych HPI - General Chief Complaint: Psychiatric Symptoms Stated Complaint: EPS eval Time Seen by Provider: 01/04/20 17:52 Source: patient, RN notes reviewed Mode of arrival: ambulatory - History of Present Illness Initial Comments: This is a 34-year-old female history depression who states she's been depressed about a week and happening get really worse today. She initially did have some thoughts of suicidal problems but now states she's not suicidal. She denies any drugs or alcohol or any other complaints. MD Complaint: feels depressed - Related Data Home Medications Medication Instructions Recorded Confirmed buPROPion HCL [Wellbutrin XL] 300 mg PO HS 09/01/18 02/27/19 busPIRone HCL 10 mg PO BID 09/01/18 02/27/19 Previous Rx's Medication Instructions Recorded Amoxicillin/Potassium Clav 1 tab PO Q12HR #20 tab 02/27/19 [Augmentin 875-125 Tablet] Cephalexin [Keflex] 500 mg PO Q6HR 14 Days #56 cap 03/21/19 Allergies Allergy/AdvReac Type Severity Reaction Status Date / Time No Known Allergies Allergy Verified 01/04/20 17:44 Review of Systems ROS Statement: Those systems with pertinent positive or pertinent negative responses have been documented in the HPI. ROS Other: All systems not noted in ROS Statement are negative. Past Medical History Past Medical History: Sleep Apnea/CPAP/BIPAP Additional Past Medical History / Comment(s): History of Kidney Infection, Hearing impairment/issues, Migraines, History of Any Multi-Drug Resistant Organisms: None Reported Past Surgical History: Cholecystectomy Additional Past Surgical History / Comment(s): Eye Surgery Past Anesthesia/Blood Transfusion Reactions: No Reported Reaction Past Psychological History: Anxiety, Depression Smoking Status: Never smoker Past Alcohol Use History: Occasional Past Drug Use History: Marijuana - Past Family History Father Family Medical History: Cancer, Coronary Artery Disease (CAD), Hypertension Additional Family Medical History / Comment(s): Stomach Cancer Mother Family Medical History: Cancer Additional Family Medical History / Comment(s): Breast Cancer General Exam - General Exam Comments Initial Comments: This is a well-developed well-nourished awake alert oriented x 3 female Limitations: no limitations General appearance: alert, in no apparent distress Head exam: Present: atraumatic, normocephalic, normal inspection Eye exam: Present: normal appearance, PERRL, EOMI. Absent: scleral icterus, conjunctival injection, periorbital swelling ENT exam: Present: normal exam, mucous membranes moist Neck exam: Present: normal inspection. Absent: tenderness, meningismus, lymphadenopathy Respiratory exam: Present: normal lung sounds bilaterally. Absent: respiratory distress, wheezes, rales, rhonchi, stridor Cardiovascular Exam: Present: regular rate, normal rhythm, normal heart sounds. Absent: systolic murmur, diastolic murmur, rubs, gallop, clicks GI/Abdominal exam: Present: soft, normal bowel sounds. Absent: distended, tenderness, guarding, rebound, rigid Extremities exam: Present: normal inspection, full ROM, normal capillary refill. Absent: tenderness, pedal edema, joint swelling, calf tenderness Back exam: Present: normal inspection Neurological exam: Present: alert, oriented X3, CN II-XII intact Psychiatric exam: Present: depressed, flat affect. Absent: suicidal ideation Skin exam: Present: warm, dry, intact, normal color. Absent: rash Course Vital Signs 01/04/20 17:41 Temperature 98.3 F Pulse Rate 99 Respiratory 18 Rate Blood Pressure 135/88 O2 Sat by Pulse 98 Oximetry Medical Decision Making - Medical Decision Making The patient was medically cleared and evaluated by the psychiatric service. Patient currently is on a resource of she'll be discharged with outpatient care plan. She will be following up with [facility]. Assessment and plan at this time Disposition Clinical Impression: Depression Disposition: HOME SELF-CARE Condition: Good Instructions (If sedation given, give patient instructions): Depression (ED) Is patient prescribed a controlled substance at d/c from ED?: No Referrals: Gricelda Sanchez MD [Primary Care Provider] - 1-2 days
[2020-01-04 20:36] VITALS: BP 141/90; PULSE 66
== END 2020-01-04 20:36 | disposition home or self-care (01) ==
LOC: EC 17:38
DX: F32.9 Major depressive disorder, single episode, unspecified (principal); F41.9 Anxiety disorder, unspecified; G47.33 Obstructive sleep apnea (adult) (pediatric); Z79.899 Other long term (current) drug therapy; Z99.89 Dependence on other enabling machines and devices; Z86.69 Personal history of other diseases of the nervous system and sense organs
CPT/HCPCS: 82075; 99284

== ENCOUNTER → 2020-04-01 | Outpatient (CLI) | payer OTHER ==
--- NOTE | 2020-04-04 09:11 | MM ---
Reason for exam: screening (asymptomatic). History: Family history of breast cancer in mother at age 47. Took hormonal contraceptives beginning at age 21. Physical Findings: Nurse did not find any significant physical abnormalities on exam. MG Screening Mammo w CAD Bilateral CC and MLO view(s) were taken. The breast tissue is heterogeneously dense. This may lower the sensitivity of mammography. There is no discrete abnormality. These results were verbally communicated with the patient and result sheet given to the patient on 04/01/20. ASSESSMENT: Negative, BI-RAD 1 RECOMMENDATION: Routine screening mammogram of both breasts in 1 year.
== END | disposition home or self-care (01) ==
LOC: RADMAMWWP 13:43
PROVIDERS: ATTEND Internal Medicine
DX: Z12.31 Encounter for screening mammogram for malignant neoplasm of breast (principal)
CPT/HCPCS: 77067

== ENCOUNTER → 2020-06-29 | Outpatient (CLI) | payer OTHER ==
--- NOTE | 2020-06-29 16:05 | CONS ---
CONSULTATION DATE OF SERVICE: 06/29/2020 This 34-year-old lady has been evaluated in [facility] for obstructive sleep apnea- hypopnea syndrome. HISTORY OF PRESENT ILLNESS/SLEEP-WAKE EVALUATION: Patient had sleep study about 5 years ago in [place], which showed that she has sleep apnea. She was started with treatment with CPAP, used it, but quit using 4 years ago. Presently, her sleep schedule from 9 p.m. until 5:45 a.m. on the weekdays and from 10 p.m. to 8:15 a.m. on weekends. No problems with falling asleep usually. No TV in bedroom. She sleeps on the side position. She snores loudly and has episodes of stopped breathing during sleep. She wakes up from sleep 2 times with nocturia. In the morning, she wakes up tired, falling asleep during the day, worry about her sleep. She has episodes of irritability, depression, anxiety. Casey Sleepiness Scale significantly increased to 15. She may take 2 naps during the day, usually in the morning. No history of hypnagogic hallucinations, sleep paralysis or cataplexy. PAST MEDICAL HISTORY: Positive for depression, bronchitis. PAST SURGICAL HISTORY: Cholecystectomy, tubal ligation. MEDICATIONS: Oxybutynin ER 5 mg once a day, venlafaxine ER 75 mg once a day, tizanidine 4 mg once a day, 50 mg once a day. SOCIAL HISTORY: Negative for smoking or using alcohol. FAMILY HISTORY: Positive for hypertension, heart problems, diabetes, cancer, narcolepsy. PHYSICAL EXAMINATION: GENERAL: Patient in no distress. VITAL SIGNS: BP 122/63, HR 67, RR 15, height 5 feet 8 inches, weight 181.2, body mass index 27.5, temperature 97.3, oxygen saturation at room air 100%. HEENT: PERRLA, EOMI. Oropharynx low position of soft palate, Mallampati 3. NECK: 15 inches in circumference. LUNGS: Clear to percussion and to auscultation. Good air exchange. No wheezing or rhonchi. HEART: S1, S2 regular. No murmurs, gallops, or rubs. ABDOMEN: Soft and nontender. Bowel sounds are present. No organomegaly appreciated. EXTREMITIES: No clubbing or cyanosis. POMOLOGIST: Awake, alert, and oriented X3. Cranial nerves 2 to 7 intact. There is no fasciculation or atrophy. noted. No focal deficits observed. IMPRESSION: 1. Loud snoring, witnessed episodes of stopped breathing during sleep, low position of soft palate, Mallampati 3, history of obstructive sleep apnea in the past, obstructive sleep apnea-hypopnea syndrome. 2. Significant excessive daytime sleepiness. Casey Sleepiness Scale is 15. The patient takes up to 2 naps during the day. History of narcolepsy in the family. Differential diagnosis should include narcolepsy without cataplexy. 3. History of bronchitis. 4. Depression. 5. Status post cholecystectomy. 6. Status post tubal ligation. PLAN: 1. Polysomnography for evaluation of patient's breathing during sleep. 2. CPAP/BiPAP titration if sleep study confirms obstructive sleep apnea-hypopnea syndrome. 3. Preferable position during sleep on the side. 4. No driving if patient feels any sleepiness. 5. I will see patient for follow up visit to explain results of testing and following plan. Thank you very much for referring this patient for consultation. Sincerely, Kip So MD, PhD, FAASM Diplomat of [place] [employer] [place] [employer] [facility] [place] MMODL / IJN: [id number] /
== END ==
LOC: SLEEP 14:25
PROVIDERS: ATTEND Internal Medicine
DX: G47.33 Obstructive sleep apnea (adult) (pediatric) (principal); F32.9 Major depressive disorder, single episode, unspecified; Z90.49 Acquired absence of other specified parts of digestive tract; Z98.51 Tubal ligation status; Z87.09 Personal history of other diseases of the respiratory system; Z79.899 Other long term (current) drug therapy
CPT/HCPCS: 99211

== ENCOUNTER → 2020-10-17 | Outpatient (CLI) | payer OTHER ==
[2020-10-17 14:35] LABS: HCT 42.6 % (37.2-46.3); HGB 13.4 g/dL (12.0-15.0); MCHC 31.5 g/dL (32.0-37.0); MCV 82.6 fL (80.0-97.0); Mean Platelet Volume 8.2 fL (9.5-12.2); Platelet Count 340 X 10*3/uL (140-440); RBC 5.16 X 10*6/uL (4.10-5.20); WBC 4.09 X 10*3/uL (4.50-10.00)
[2020-10-17 14:51] LABS: Albumin 4.3 g/dL (3.80-4.90); Albumin/Globulin Ratio 1.87 (1.60-3.17); Anion Gap 6.4 mmol/L (4.00-12.00); BUN/Creat Ratio 26.67 Ratio (12.00-20.00); Calcium 8.9 mg/dL (8.7-10.3); Carbon Dioxide 29.6 mmol/L (21.6-31.8); Globulin 2.3 g/dL (1.6-3.3); Non-African American GFR(CKD) 116.4 (60.0-200.0); Potassium 4.1 mmol/L (3.5-5.5); Total Bilirubin 0.4 mg/dL (0.2-1.2); Total Protein 6.6 g/dL (6.2-8.2)
== END | disposition home or self-care (01) ==
LOC: LABWHC1 10:05
PROVIDERS: ATTEND Internal Medicine
DX: R10.9 Unspecified abdominal pain (principal)
CPT/HCPCS: 36415; 80053; 82150; 83690; 85027

== ENCOUNTER 2021-05-19 22:52 | Emergency (ER) | payer OTHER ==
[2021-05-19 22:57] VITALS: BP 105/72; PULSE 72; RESP 19; TEMP 98.2
--- NOTE | 2021-05-20 00:38 | ED ---
Eye Problem HPI - General Chief complaint: Eye Problems Stated complaint: R eye vision changes Time Seen by Provider: 05/19/21 23:21 Source: patient Mode of arrival: ambulatory - History of Present Illness Initial comments: patient is a 35-year-old woman who presents with complaints related to vision of the right eye. She states that she started having some floaters that she could see the vision of the right eye. She states that there seems to be a screen blocking the lateral side of the vision of the right eye. She is not aware of any injury to the eye. No previous surgeries. She does not work contact's. She does wear glasses. chief complaint: vision change Onset/Timin -: days(s) Onset Description: gradual Location: right eye Place: home If Injury: none Eye Symptoms: blurry vision Severity: moderate Severity scale (1-10): 0 Consistency: constant Associated Symptoms: none Treatments Prior to Arrival: none - Related Data Home Medications Medication Instructions Recorded Confirmed buPROPion HCL [Wellbutrin XL] 300 mg PO HS 09/01/18 02/27/19 busPIRone HCL 10 mg PO BID 09/01/18 02/27/19 Previous Rx's Medication Instructions Recorded Amoxicillin/Potassium Clav 1 tab PO Q12HR #20 tab 02/27/19 [Augmentin 875-125 Tablet] Cephalexin [Keflex] 500 mg PO Q6HR 14 Days #56 cap 03/21/19 Allergies Allergy/AdvReac Type Severity Reaction Status Date / Time No Known Allergies Allergy Verified 05/19/21 22:57 Review of Systems ROS Statement: Those systems with pertinent positive or pertinent negative responses have been documented in the HPI. ROS Other: All systems not noted in ROS Statement are negative. Constitutional: Denies: fever, chills Eyes: Reports: vision change. Denies: eye pain, eye discharge ENT: Denies: congestion Respiratory: Denies: cough, dyspnea Cardiovascular: Denies: chest pain, palpitations, syncope Gastrointestinal: Denies: abdominal pain, nausea, vomiting, diarrhea Musculoskeletal: Denies: back pain Skin: Denies: rash Neurological: Denies: headache, weakness, numbness Past Medical History Past Medical History: Sleep Apnea/CPAP/BIPAP Additional Past Medical History / Comment(s): History of Kidney Infection, Hearing impairment/issues, Migraines, History of Any Multi-Drug Resistant Organisms: None Reported Past Surgical History: Cholecystectomy Additional Past Surgical History / Comment(s): Eye Surgery Past Anesthesia/Blood Transfusion Reactions: No Reported Reaction Past Psychological History: Anxiety, Depression Smoking Status: Never smoker Past Alcohol Use History: None Reported Past Drug Use History: None Reported - Past Family History Father Family Medical History: Cancer, Coronary Artery Disease (CAD), Hypertension Additional Family Medical History / Comment(s): Stomach Cancer Mother Family Medical History: Cancer Additional Family Medical History / Comment(s): Breast Cancer General Exam General appearance: alert, in no apparent distress Head exam: Present: atraumatic, normocephalic Eye exam: Present: EOMI. Absent: PERRL, scleral icterus, conjunctival injection, periorbital swelling, periorbital tenderness Pupils: Present: unequal, mydriatic (right eye has mild mydriasis compared with left.) Expanded Eyelids: Normal Inspection: Left Pupils: Regular, Round: Bilateral, Reactive: Bilateral, Mydriasis: Right IOP (R) in mmH IOP measured with: other (iCare device) ENT exam: Present: normal oropharynx, mucous membranes moist Neck exam: Present: normal inspection, full ROM Respiratory exam: Present: normal lung sounds bilaterally. Absent: respiratory distress, wheezes, rales, rhonchi, stridor Cardiovascular Exam: Present: regular rate, normal rhythm, normal heart sounds. Absent: systolic murmur, diastolic murmur, rubs, gallop Course Vital Signs 05/19/21 22:54 Temperature 98.2 F Pulse Rate 72 Respiratory 19 Rate Blood Pressure 105/72 O2 Sat by Pulse 98 Oximetry Medical Decision Making - Medical Decision Making the patient does have loss of the temporal portion of the visual field with the right eye. I did perform ultrasound of the patient's right globe which does show that there is some retinal detachment at the periphery. It is not affecting central retina. I immediately paged Dr. Juarez who is covering opthalmology and discussed the exam findings and the ultrasound findings. He will see patient first thing in his office for treatment. I discussed this with patient and her partner, including the critical nature of this problem and need to keep appointment. They will return immediately if there is any deterioration or problem with the treatment plan. Disposition Clinical Impression: Retinal detachment Disposition: HOME SELF-CARE Condition: Serious Instructions (If sedation given, give patient instructions): Blurred Vision (ED) Additional Instructions: As we discussed, see Dr. Nair in the morning. Do not have anything to eat or drink prior to the appointment. Is patient prescribed a controlled substance at d/c from ED?: No Referrals: Larry Nair MD [STAFF PHYSICIAN] - 1-2 days
== END 2021-05-20 00:47 | disposition home or self-care (01) ==
LOC: EC 22:52
DX: H33.21 Serous retinal detachment, right eye (principal); F32.A Depression, unspecified; F41.9 Anxiety disorder, unspecified; Z79.899 Other long term (current) drug therapy
CPT/HCPCS: 99283

== ENCOUNTER 2021-11-24 14:54 | Emergency (ER) | payer OTHER ==
[2021-11-24 15:02] VITALS: BP 120/83; PULSE 83; RESP 20; TEMP 97.8
[2021-11-24] MEDS ORDERED: SODIUM CHLORIDE 0.9% 1,000 ML IV STA (15:42)
--- NOTE | 2021-11-24 15:45 | ED ---
General Adult HPI - General Chief complaint: Abdominal Pain Stated complaint: Chest pain Time Seen by Provider: 11/24/21 15:29 Source: patient Mode of arrival: ambulatory Limitations: no limitations - History of Present Illness Initial comments: Dictation was produced using ivWatch dictation software. please excuse any grammatical, word or spelling errors. Chief Complaint: 36-year-old female presents to the emergency department for b ilateral flank pain History of Present Illness: 28-year-old female she has no significant comorbidi ties. For the last 7 days she's been having intermittent episodes of bilateral flank pain. Patient states her pain is exacerbated with bending over. She says that the pain on her right is more apparent and worse with twisting and deep inspiration. She denies any cough. No fevers. No shortness of breath. Patient states the pain in her left is a little bit more mild. She does have some intermittent episodes of left abdominal pain. Patient denies any trauma. She was seen recently by visiting home physicians and was told that she has an abnormal urine. The ROS documented in this emergency department record has been reviewed and confirmed by me. Those systems with pertinent positive or negative responses have been documented in the HPI. All other systems are other negative and/or n oncontributory. PHYSICAL EXAM: General Impression: Alert and oriented x3, not in acute distress HEENT: Normocephalic atraumatic, extra-ocular movements intact, pupils equal and reactive to light bilaterally, mucous membranes moist. Cardiovascular: Heart regular rate and rhythm Chest: Able to complete full sentences, no retractions, no tachypnea Abdomen: abdomen soft, non-tender, non-distended, no organomegaly Musculoskeletal: Pulses present and equal in all extremities, no peripheral edema Motor: no focal deficits noted Neurological: CN II-XII grossly intact, no focal motor or sensory deficits noted Skin: Intact with no visualized rashes Psych: Normal affect and mood ED course: 36-year-old female presents emergency department for bilateral flank pain. Vital signs upon arrival are within acceptable limits. Laboratory evaluation obtained. CBC, metabolic panel is unremarkable. Abdomi nal labs negative. Urinalysis is negative. Patient symptoms pathology does not suggest nephrolithiasis concerning in its positional. Furthermore patient does not have any red blood cells in the urine. Clinical presentation suggestive of back strain. Patient given assurance patient be discharged. - Related Data Home Medications Medication Instructions Recorded Confirmed buPROPion HCL [Wellbutrin XL] 300 mg PO HS 09/01/18 02/27/19 busPIRone HCL 10 mg PO BID 09/01/18 02/27/19 Previous Rx's Medication Instructions Recorded Amoxicillin/Potassium Clav 1 tab PO Q12HR #20 tab 02/27/19 [Augmentin 875-125 Tablet] Cephalexin [Keflex] 500 mg PO Q6HR 14 Days #56 cap 03/21/19 Allergies Allergy/AdvReac Type Severity Reaction Status Date / Time No Known Allergies Allergy Verified 11/24/21 15:02 Review of Systems ROS Statement: Those systems with pertinent positive or pertinent negative responses have been documented in the HPI. ROS Other: All systems not noted in ROS Statement are negative. Past Medical History Past Medical History: Sleep Apnea/CPAP/BIPAP Additional Past Medical History / Comment(s): History of Kidney Infection, Hearing impairment/issues, Migraines, History of Any Multi-Drug Resistant Organisms: None Reported Past Surgical History: Cholecystectomy Additional Past Surgical History / Comment(s): Eye Surgery Past Anesthesia/Blood Transfusion Reactions: No Reported Reaction Past Psychological History: Anxiety, Depression Smoking Status: Never smoker Past Alcohol Use History: Occasional Past Drug Use History: None Reported - Past Family History Father Family Medical History: Cancer, Coronary Artery Disease (CAD), Hypertension Additional Family Medical History / Comment(s): Stomach Cancer Mother Family Medical History: Cancer Additional Family Medical History / Comment(s): Breast Cancer General Exam Limitations: no limitations Course Vital Signs 11/24/21 15:00 Temperature 97.8 F Pulse Rate 83 Respiratory 20 Rate Blood Pressure 120/83 O2 Sat by Pulse 99 Oximetry Medical Decision Making - Lab Data Result diagrams: 11/24/21 15:50 11/24/21 15:50 Lab Results 11/24/21 11/24/21 11/24/21 Range/Units 15:50 15:50 15:55 WBC 8.2 (3.8-10.6) k/uL RBC 5.00 (3.80-5.40) m/uL Hgb 13.7 (11.4-16.0) gm/dL Hct 41.8 (34.0-46.0) % MCV 83.6 (80.0-100.0) fL MCH 27.5 (25.0-35.0) pg MCHC 32.9 (31.0-37.0) g/dL RDW 12.4 (11.5-15.5) % Plt Count 408 (150-450) k/uL MPV 6.3 Neutrophils % 65 % Lymphocytes % 25 % Monocytes % 6 % Eosinophils % 2 % Basophils % 0 % Neutrophils # 5.3 (1.3-7.7) k/uL Lymphocytes # 2.0 (1.0-4.8) k/uL Monocytes # 0.5 (0-1.0) k/uL Eosinophils # 0.1 (0-0.7) k/uL Basophils # 0.0 (0-0.2) k/uL Sodium 139 (137-145) mmol/L Potassium 4.0 (3.5-5.1) mmol/L Chloride 102 (98-107) mmol/L Carbon Dioxide 26 (22-30) mmol/L Anion Gap 11 mmol/L BUN 14 (7-17) mg/dL Creatinine 0.60 (0.52-1.04) mg/dL Est GFR (CKD-EPI)AfAm >90 (>60 ml/min/1.73 sqM) Est GFR (CKD-EPI)NonAf >90 (>60 ml/min/1.73 sqM) Glucose 86 (74-99) mg/dL Calcium 9.7 (8.4-10.2) mg/dL Total Bilirubin 0.3 (0.2-1.3) mg/dL AST 24 (14-36) U/L ALT 31 (4-34) U/L Alkaline Phosphatase 69 (38-126) U/L Total Protein 7.2 (6.3-8.2) g/dL Albumin 4.5 (3.5-5.0) g/dL Lipase 77 (23-300) U/L Urine Color Yellow Urine Appearance Cloudy H (Clear) Urine pH 6.5 (5.0-8.0) Ur Specific [place] 1.020 (1.001-1.035) Urine Protein Negative (Negative) Urine Glucose (UA) Negative (Negative) Urine Ketones Negative (Negative) Urine Blood Negative (Negative) Urine Nitrite Negative (Negative) Urine Bilirubin Negative (Negative) Urine Urobilinogen <2.0 (<2.0) mg/dL Ur Leukocyte Esterase Moderate H (Negative) Urine RBC <1 (0-5) /hpf Urine WBC 1 (0-5) /hpf Ur Squamous Epith Cells 8 H (0-4) /hpf Urine Bacteria Occasional H (None) /hpf Urine Mucus Rare H (None) /hpf Disposition Clinical Impression: Back strain Disposition: HOME SELF-CARE Condition: Good Instructions (If sedation given, give patient instructions): Low Back Strain (ED) Is patient prescribed a controlled substance at d/c from ED?: No Referrals: Nonstaff,Physician [REFERRING] - 1-2 days Time of Disposition: 16:34
[2021-11-24 16:09] LABS: Basophils % (A) 0 %; Eosinophils # (A) 0.1 k/uL (0-0.7); Eosinophils % (A) 2 %; HCT 41.8 % (34.0-46.0); HGB 13.7 gm/dL (11.4-16.0); Lymphocytes % (A) 25 %; MCH 27.5 pg (25.0-35.0); MCHC 32.9 g/dL (31.0-37.0); MCV 83.6 fL (80.0-100.0); Mean Platelet Volume 6.3; Monocytes # (A) 0.5 k/uL (0-1.0); Monocytes % (A) 6 %; Neutrophils # (A) 5.3 k/uL (1.3-7.7); Neutrophils % (A) 65 %; Platelet Count 408 k/uL (150-450); RDW 12.4 % (11.5-15.5); WBC 8.2 k/uL (3.8-10.6)
[2021-11-24 16:11] LABS: Appearance,Urine Cloudy (Clear); Bacteria,Urine Occasional /hpf; Bilirubin,Urine Negative (Negative); Blood,Urine Negative (Negative); Color,Urine Yellow; Glucose,Urine (UA) Negative (Negative); Ketones,Urine Negative (Negative); Leukocyte Esterase,Urine Moderate (Negative); Mucus,Urine Rare /hpf; Nitrite,Urine Negative (Negative); PH, Urine 6.5 (5.0-8.0); Protein,Urine Negative (Negative); RBC,Urine <1 /hpf (0-5); Squamous Epithelial Cell,Urine 8 /hpf (0-4); Urobilinogen,Urine <2.0 mg/dL (<2.0); WBC,Urine 1 /hpf (0-5)
[2021-11-24 16:19] LABS: ALT 31 U/L (4-34); AST 24 U/L (14-36); African American GFR (CKD) >90 (>60 ml/min/1.73 sqM); Albumin 4.5 g/dL (3.5-5.0); Alkaline Phosphatase 69 U/L (38-126); Anion Gap 11 mmol/L; Blood Urea Nitrogen 14 mg/dL (7-17); Calcium 9.7 mg/dL (8.4-10.2); Carbon Dioxide 26 mmol/L (22-30); Chloride 102 mmol/L (98-107); Glucose 86 mg/dL (74-99); Lipase 77 U/L (23-300); Non-African American GFR(CKD) >90 (>60 ml/min/1.73 sqM); Sodium 139 mmol/L (137-145); Total Bilirubin 0.3 mg/dL (0.2-1.3); Total Protein 7.2 g/dL (6.3-8.2)
[2021-11-24] MEDS ORDERED: ACET/COD 300 MG/30 MG STARTER PACK 6 TAB BTL PO STA (16:34)
== END 2021-11-24 17:04 | disposition home or self-care (01) ==
LOC: EC 14:54
DX: S39.012A Strain of muscle, fascia and tendon of lower back, initial encounter (principal); F41.9 Anxiety disorder, unspecified; F32.A Depression, unspecified; Z79.899 Other long term (current) drug therapy; X50.9XXA Other and unspecified overexertion or strenuous movements or postures, initial encounter
CPT/HCPCS: 36415; 80053; 81001; 83690; 85025; 96360; 99284

== ENCOUNTER → 2021-12-25 | Outpatient (CLI) | payer OTHER ==
[2021-12-25 12:04] LABS: African American GFR (CKD) >90 (>60 ml/min/1.73 sqM); Blood Urea Nitrogen 8 mg/dL (7-17); Non-African American GFR(CKD) >90 (>60 ml/min/1.73 sqM)
--- NOTE | 2021-12-26 15:37 | CT ---
EXAMINATION TYPE: CT abdomen wo/w con DATE OF EXAM: 12/25/2021 COMPARISON: Renal ultrasound report March 27, 2019 HISTORY: Renal mass-left side CT DLP: 1413 mGycm Automated exposure control for dose reduction was used. TECHNIQUE: Helical acquisition of images was performed from the lung bases through the top of iliac crest to include entire abdomen. CONTRAST: Performed with Oral Contrast and without and with IV Contrast, patient injected with 70 mL of Isovue 300. FINDINGS: LUNG BASES: No significant abnormality is appreciated. LIVER/GB: Gallbladder duct seen and presumed surgically absent. PANCREAS: No significant abnormality is seen. SPLEEN: No significant abnormality is seen. ADRENALS: No significant abnormality is seen. KIDNEYS: There is 2-3 mm nonobstructing calculus mid to lower pole level right kidney coronal image 4 8 series 4. Postcontrast images show symmetric uptake and excretion without concerning solid or cysti c renal mass or hydronephrosis seen bilaterally. Duplicated right renal artery incidentally noted. An terior positioning or axis to left kidney noted. BOWEL: Oral contrast does not reach colonic level. No suspicious small or large bowel dilatation LYMPH NODES: No significant abnormality is seen. OSSEOUS STRUCTURES: There is slight S-shaped scoliotic curvature. OTHER: Tiny fat-containing umbilical hernia IMPRESSION: No concerning solid or cystic renal mass in either kidney. Note is made of 2 to 3 mm nono bstructing right renal calculus.
== END | disposition home or self-care (01) ==
LOC: RADCTMAIN 11:09
PROVIDERS: ATTEND Urology
DX: D41.01 Neoplasm of uncertain behavior of right kidney (principal); N20.0 Calculus of kidney
CPT/HCPCS: 82565; 84520; 74170; 36415; Q9967 ×2

== ENCOUNTER → 2022-02-06 | Outpatient (CLI) | payer OTHER ==
--- NOTE | 2022-02-07 11:48 | MM ---
Reason for Exam: Screening (asymptomatic). Last mammogram was performed 1 year(s) and 10 month(s) ago. Patient History: Menarche at age 10. First Full-Term at age 26. Hormonal Contraceptives, from age 21 until age 32. Mother had breast cancer, age 47. Last menstrual period: 02/01/2022 Risk Values: Christy 5 year model risk: 0.9%. NCI Lifetime model risk: 19.0%. Prior Study Comparison: 04/01/2020 Bilateral Screening Mammogram, [facility]. Tissue Density: There are scattered fibroglandular densities. Findings: Analyzed By CAD. There is no suspicious new group of microcalcifications or new suspicious mass in either breast. Overall Assessment: Negative, BI-RAD 1 Management: Screening Mammogram of both breasts at age 38. A clinical breast exam by your physician is recommended on an annual basis and results should be correlated with mammographic findings. Electronically signed and approved by: Mohsen Pritchard M.D.
== END | disposition home or self-care (01) ==
LOC: RADMAMWWP 09:51
PROVIDERS: ATTEND Obstetrics & Gynecology
DX: Z12.31 Encounter for screening mammogram for malignant neoplasm of breast (principal)
CPT/HCPCS: 77067

== ENCOUNTER 2022-07-04 18:48 | Inpatient (IN) | payer MEDICAID, OTHER ==
[2022-07-04] MEDS ORDERED: MAGNESIUM HYDROXIDE 2,400 MG/10 ML CUP PO PRN (23:21)
[2022-07-04] MEDS ORDERED: MAG HYDROX/AL HYDROX/SIMETH 30 ML CUP PO PRN (23:21)
[2022-07-04] MEDS ORDERED: OLANZapine 5 MG TAB PO PRN (23:26)
[2022-07-04] MEDS ORDERED: OLANZapine 10 MG VIAL IM PRN (23:26)
[2022-07-04] MEDS ORDERED: hydrOXYzine pamoate 25 MG CAP PO PRN (23:26)
[2022-07-04] MEDS ORDERED: hydrOXYzine HCL 50 MG/ML 1 ML VIAL IM PRN (23:26)
--- NOTE | 2022-07-04 23:28 | ED ---
Psych HPI - General Chief Complaint: Psychiatric Symptoms Stated Complaint: mental health Time Seen by Provider: 07/04/22 19:09 Source: patient, police Mode of arrival: ambulatory - History of Present Illness Initial Comments: This patient is a 36-year-old woman brought to have evaluation after she had written a suicide note and left this for her children. Patient does acknowledge having very depressed mood and having suicidal thoughts. She states she has thought about overdosing. MD Complaint: suicidal ideation, feels depressed -: days(s) Associated Psychiatric Symptoms: depression, suicidal ideation Quality: getting worse Improves With: none Worsens With: none Context: significant life stressor Associated Symptoms: denies other symptoms - Related Data Home Medications Medication Instructions Recorded Confirmed Ergocalciferol [Vitamin D2 (1250 1,250 mcg PO ALANIZ 11/24/21 07/04/22 Mcg = 82013 Iu)] Prednisolone Acetate/Pf 1 drop RIGHT EYE DAILY 11/24/21 07/04/22 [Prednisolone Acet 1% Eye Drop] tiZANidine [Zanaflex] 4 mg PO BID PRN 11/24/21 07/04/22 Atorvastatin [Lipitor] 20 mg PO HS 07/04/22 07/04/22 Cetirizine HCl [Zyrtec] 10 mg PO DAILY PRN 07/04/22 07/04/22 Famotidine [Pepcid] 40 mg PO BID 07/04/22 07/04/22 OXcarbazepine [Trileptal] 450 mg PO BID 07/04/22 07/04/22 Oxybutynin Xl [Ditropan XL] 5 mg PO DAILY 07/04/22 07/04/22 Venlafaxine HCl [Effexor XR] 150 mg PO DAILY 07/04/22 07/04/22 Allergies Allergy/AdvReac Type Severity Reaction Status Date / Time No Known Allergies Allergy Verified 07/04/22 21:32 Review of Systems ROS Statement: Those systems with pertinent positive or pertinent negative responses have been documented in the HPI. ROS Other: All systems not noted in ROS Statement are negative. Constitutional: Denies: fever Respiratory: Denies: cough, dyspnea Cardiovascular: Denies: chest pain, palpitations, syncope Gastrointestinal: Denies: abdominal pain, vomiting, diarrhea Genitourinary: Denies: dysuria, hematuria Musculoskeletal: Denies: back pain Skin: Denies: rash Neurological: Denies: headache Past Medical History Past Medical History: Sleep Apnea/CPAP/BIPAP Additional Past Medical History / Comment(s): History of Kidney Infection, Hearing impairment/issues, Migraines, History of Any Multi-Drug Resistant Organisms: None Reported Past Surgical History: Cholecystectomy Additional Past Surgical History / Comment(s): Eye Surgery Past Anesthesia/Blood Transfusion Reactions: No Reported Reaction Past Psychological History: Anxiety, Depression Smoking Status: Never smoker Past Alcohol Use History: Occasional Past Drug Use History: None Reported - Past Family History Father Family Medical History: Cancer, Coronary Artery Disease (CAD), Hypertension Additional Family Medical History / Comment(s): Stomach Cancer Mother Family Medical History: Cancer Additional Family Medical History / Comment(s): Breast Cancer General Exam Limitations: no limitations General appearance: alert, in no apparent distress Head exam: Present: atraumatic, normocephalic Eye exam: Present: normal appearance. Absent: scleral icterus, conjunctival injection Neck exam: Present: normal inspection Respiratory exam: Present: normal lung sounds bilaterally. Absent: respiratory distress, wheezes, rales, rhonchi, stridor Cardiovascular Exam: Present: regular rate, normal rhythm, normal heart sounds. Absent: systolic murmur, diastolic murmur, rubs, gallop GI/Abdominal exam: Present: soft. Absent: distended, tenderness, guarding, rebound, rigid, mass Extremities exam: Present: normal inspection, normal capillary refill. Absent: pedal edema, calf tenderness Back exam: Present: normal inspection Neurological exam: Present: alert Psychiatric exam: Present: depressed, suicidal ideation. Absent: anxious, flat affect, manic, homicidal ideation Skin exam: Present: warm, dry, intact, normal color. Absent: rash Course Vital Signs 07/04/22 07/05/22 18:50 01:51 Temperature 98.1 F Pulse Rate 101 H 93 Respiratory 16 16 Rate Blood Pressure 129/90 117/72 O2 Sat by Pulse 99 99 Oximetry Medical Decision Making - Medical Decision Making Was pt. sent in by a medical professional or institution (, PA, MS ACCESS DATABASE DEVELOPER, urgent care, hospital, or usp...) When possible be specific @ -[No] Did you speak to anyone other than the patient for history (EMS, parent, family, police, friend...)? What history was obtained from this source @ -[No] Did you review nursing and triage notes (agree or disagree)? Why? @ -[I reviewed and agree with nursing and triage notes] Were old charts reviewed (outside hosp., previous admission, EMS record, old EKG, old radiological studies, urgent care reports/EKG's, usp records)? Report findings @ -[No old charts were reviewed] Differential Diagnosis (chest pain, altered mental status, abdominal pain women, abdominal pain men, vaginal bleeding, weakness, fever, dyspnea, syncope, headache, dizziness, GI bleed, back pain, seizure, CVA, palpatations, mental health, musculoskeletal)? @ -[Differential Mental Health Depression, anxiety, bipolar, psychosis, schizophrenia, borderline personality, situational depression, adjustment disorder, behavioral disorder, brain tumor, malingering, substance abuse, encephalopathy, medication reaction, dementia, hypothyroidism, degenerative neurologic disorder, lupus.... This is not meant to be all-inclusive list EKG interpreted by me (3pts min.). @ -[ X-rays interpreted by me (1pt min.). @ -[None done] CT interpreted by me (1pt min.). @ -[None done] U/S interpreted by me (1pt. min.). @ -[None done] What testing was considered but not performed or refused? (CT, X-rays, U/S, labs)? Why? @ -[None] What meds were considered but not given or refused? Why? @ -[None] Did you discuss the management of the patient with other professionals (professionals i.e. , PA, MS ACCESS DATABASE DEVELOPER, lab, RT, psych nurse, social worker assistant, shoe salesman, teacher, pharmaceutical officer, case management social worker)? Give summary @ -[EPS Was smoking cessation discussed for >3mins.? @ -[No] Was critical care preformed (if so, how long)? @ -[No] Were there social determinants of health that impacted care today? How? (Homelessness, low income, unemployed, alcoholism, drug addiction, transportation, low edu. Level, literacy, decrease access to med. care, nursing home, rehab)? @ -[No] Was there de-escalation of care discussed even if they declined (Discuss DNR or withdrawal of care, Hospice)? DNR status @ -[No] What co-morbidities impacted this encounter? (DM, HTN, Smoking, COPD, CAD, Cancer, CVA, ARF, Chemo, Hep., AIDS, mental health diagnosis, sleep apnea, morbid obesity)? @ -[None] Was patient admitted / discharged? Hospital course, mention meds given and route, prescriptions, significant lab abnormalities, going to OR and other pertinent info. @ -[Admitted Undiagnosed new problem with uncertain prognosis? @ -[No] Drug Therapy requiring intensive monitoring for toxicity (Heparin, Nitro, Insulin, Cardizem)? @ -[No] Were any procedures done? @ -[No] Diagnosis/symptom? @ -[Mood disorder, with suicidal ideation, acute Acute, or Chronic, or Acute on Chronic? @ -[default] Uncomplicated (without systemic symptoms) or Complicated (systemic symptoms)? @ -[Uncomplicated Side effects of treatment? @ -[No] Exacerbation, Progression, or Severe Exacerbation? @ -[No] Poses a threat to life or bodily function? How? (Chest pain, [place], [place], pneumonia, PE, COPD, DKA, ARF, appy, cholecystitis, CVA, Diverticulitis, Homicidal, Suicidal, threat to staff... and all critical care pts) @ -[Yes - Lab Data Result diagrams: 07/05/22 07:35 07/05/22 07:35 Lab Results 07/04/22 Range/Units 22:04 Coronavirus (PCR) Not Detected (Not Detectd) Disposition Clinical Impression: Mood disorder, Suicidal ideation Disposition: ADMITTED IP TO THIS HOSP Condition: Fair Is patient prescribed a controlled substance at d/c from ED?: No
[2022-07-05] MEDS: FAMOTIDINE 20 MG TAB PO SCH ×2 (03:30→20:58)
[2022-07-05 07:57] LABS: Basophils % (A) 1 %; Eosinophils % (A) 1 %; HCT 42.5 % (34.0-46.0); Lymphocytes % (A) 23 %; MCH 26.3 pg (25.0-35.0); MCHC 32.9 g/dL (31.0-37.0); Mean Platelet Volume 6.2; Monocytes # (A) 0.3 k/uL (0-1.0); Monocytes % (A) 7 %; Neutrophils % (A) 67 %; Platelet Count 346 k/uL (150-450); RBC 5.31 m/uL (3.80-5.40); RDW 12.3 % (11.5-15.5); WBC 4.5 k/uL (3.8-10.6)
[2022-07-05 08:14] LABS: ALT 30 U/L (4-34); AST 23 U/L (14-36); African American GFR (CKD) >90 (>60 ml/min/1.73 sqM); Albumin 4.4 g/dL (3.5-5.0); Alkaline Phosphatase 70 U/L (38-126); Anion Gap 7 mmol/L; Blood Urea Nitrogen 7 mg/dL (7-17); Carbon Dioxide 27 mmol/L (22-30); Chloride 105 mmol/L (98-107); Glucose 114 mg/dL (74-99); Non-African American GFR(CKD) >90 (>60 ml/min/1.73 sqM); Sodium 139 mmol/L (137-145); Total Bilirubin 0.5 mg/dL (0.2-1.3)
[2022-07-05] MEDS: VENLAFAXINE HCL ER 150 MG CAP PO SCH (08:37)
[2022-07-05] MEDS: prednisoLONE ACETATE 1% OPHTH DROPS 5 ML BTL RIGHT EYE SCH (08:38)
[2022-07-05] MEDS: OXYBUTYNIN XL 5 MG TAB.ER.24 PO SCH (08:38)
[2022-07-05] MEDS: NICOTINE 14MG/24HR PATCH TRANSDERM SCH (08:39)
[2022-07-05] MEDS ORDERED: OXcarbazepine 150 MG TAB PO SCH (09:00)
[2022-07-05] MEDS: LITHIUM CARBONATE 300 MG CAP PO SCH ×2 (12:23→20:58)
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
--- NOTE | 2022-07-05 14:48 | P.CONS ---
History of Present Illness - Reason for Consult Consult date: 07/05/22 Medical management Requesting physician: Luis A Chan - Chief Complaint Suicidal - History of Present Illness This is a 36-year-old patient, follows with visiting physicians Dr. Bravo. Patient has known obstructive sleep apnea does not use a CPAP, landed the right eye after 34 surgeries for retinal detachment, hyperlipidemia, urinary incontinence, Patient presents with major depression with suicidal ideation. Had a suicide note. Bowels are fine. Appetite is okay. Has reflux symptoms. Takes medication for sleeping. Denies use of any recreational drugs. As of yesterday she is homeless. Was living with a friend before that. 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 Was living with a friend up to yesterday. No homeless. Has 3 children. Denies smoking alcohol or use of any recreational drugs. Physical examination: VITAL SIGNS: 98.3, 88, 18, 125/70, 98% room air GENERAL: BMI 30.5 sitting up, comfortable. EYES: Right eye damage, left eye normal]l. HEENT: External appearance of nose and ears normal, oral cavity grossly normal. NECK: JVD not raised; masses not palpable. HEART: First and second heart sounds are normal; no edema. LUNGS: Respiratory rate normal; clear to auscultation. ABDOMEN: Soft, nontender, liver spleen not palpable, no masses palpable. PSYCH: [Alert and oriented x3; mood and affect low. MUSCULOSKELETAL:No Clubbing/cyanosis;muscles-grossly intact NEUROLOGICAL: Cranial nerves grossly intact; no facial asymmetry, power and sensation grossly intact. 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 Patient to follow with Dr. Bravo upon discharge Thank you Dr. Chan Past Medical History Past Medical History: Sleep Apnea/CPAP/BIPAP Additional Past Medical History / Comment(s): History of Kidney Infection, Hear ing impairment/issues, Migraines, right eye blindness History of Any Multi-Drug Resistant Organisms: None Reported Past Surgical History: Cholecystectomy Additional Past Surgical History / Comment(s): Eye Surgery Past Anesthesia/Blood Transfusion Reactions: No Reported Reaction Past Psychological History: Anxiety, Depression Smoking Status: Never smoker Past Alcohol Use History: Occasional Past Drug Use History: None Reported - Past Family History Father Family Medical History: Cancer, Coronary Artery Disease (CAD), Hypertension Additional Family Medical History / Comment(s): Stomach Cancer Mother Family Medical History: Cancer Additional Family Medical History / Comment(s): Breast Cancer Medications and Allergies Home Medications Medication Instructions Recorded Confirmed Type Ergocalciferol [Vitamin D2 (1250 1,250 mcg PO ALANIZ 11/24/21 07/04/22 History Mcg = 67880 Iu)] Prednisolone Acetate/Pf 1 drop RIGHT EYE DAILY 11/24/21 07/04/22 History [Prednisolone Acet 1% Eye Drop] tiZANidine [Zanaflex] 4 mg PO BID PRN 11/24/21 07/04/22 History Atorvastatin [Lipitor] 20 mg PO HS 07/04/22 07/04/22 History Cetirizine HCl [Zyrtec] 10 mg PO DAILY PRN 07/04/22 07/04/22 History Famotidine [Pepcid] 40 mg PO BID 07/04/22 07/04/22 History OXcarbazepine [Trileptal] 450 mg PO BID 07/04/22 07/04/22 History Oxybutynin Xl [Ditropan XL] 5 mg PO DAILY 07/04/22 07/04/22 History Venlafaxine HCl [Effexor XR] 150 mg PO DAILY 07/04/22 07/04/22 History Allergies Allergy/AdvReac Type Severity Reaction Status Date / Time No Known Allergies Allergy Verified 07/04/22 21:32 Physical Exam Vitals: Vital Signs Temp Pulse Pulse Resp BP BP Pulse Ox 07/05/22 03:42 98.3 F 88 18 125/70 98 07/05/22 01:51 93 16 117/72 99 07/04/22 18:50 98.1 F 101 H 16 129/90 99 Intake and Output 07/04/22 07/05/22 07/05/22 22:59 06:59 14:59 Other: Weight 90.718 kg 88.224 kg Results CBC & Chem 7: 07/05/22 07:35 07/05/22 07:35 Labs: Abnormal Lab Results - Last 24 Hours (Table) 07/05/22 Range/Units 07:35 Glucose 114 H (74-99) mg/dL
[2022-07-05] MEDS: ATORVASTATIN 20 MG TAB PO SCH (20:58)
[2022-07-05] MEDS: traZODone HCL 50 MG TAB PO SCH (20:58)
[2022-07-05] MEDS: tiZANidine 4 MG TAB PO PRN (21:47)
[2022-07-06] MEDS: ACETAMINOPHEN TAB 325 MG TAB PO PRN ×2 (02:23→13:05)
[2022-07-06] MEDS: prednisoLONE ACETATE 1% OPHTH DROPS 5 ML BTL RIGHT EYE SCH (09:20)
[2022-07-06] MEDS: FAMOTIDINE 20 MG TAB PO SCH ×2 (09:21→20:40)
[2022-07-06] MEDS: VENLAFAXINE HCL ER 150 MG CAP PO SCH (09:21)
[2022-07-06] MEDS: OXYBUTYNIN XL 5 MG TAB.ER.24 PO SCH (09:21)
[2022-07-06] MEDS: LITHIUM CARBONATE 300 MG CAP PO SCH ×2 (09:21→20:39)
[2022-07-06] MEDS: NICOTINE 14MG/24HR PATCH TRANSDERM SCH (09:42)
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
[2022-07-06] MEDS: OFLOXACIN 0.3% OPHTH DROPS 5 ML BOTTLE RIGHT EYE SCH ×2 (15:23→20:39)
[2022-07-06] MEDS ORDERED: PROPARACAINE 0.5% OPHTH DROPS 15 ML BTL BOTH EYES STA (16:11)
[2022-07-06] MEDS: ARTIFICIAL TEARS-HYPROMELLOSE DROPS 15 ML BTL BOTH EYES SCH ×2 (16:33→20:41)
--- NOTE | 2022-07-06 17:21 | P.CON ---
Consult Note - . 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 Apparently her problem began about a year or so ago with a spontaneous detachment due to her high myopia. Patient states that she has undergone multiple attempts to repair the eye with no successful return of vision, at this time. She states she has had multiple surgeries which have included scleral buckle, vitrectomy, air-fluid exchanges and silicone oil replacment and removal. There was also cataract surgery to correct for the lens changes after such multiple attempts to repair. The eye is generally comfortable, but does become slightly red and a non sticky discharge from time to time. She has retained ofloxacin drops from the previous surgeries and uses the drop when she feels the discharge or irritation developing. Her retina specialist, Dr. Briscoe, is not aware of the antibiotic drop, but has had her on maintenance prednisolone acetate to keep the eye quiet. Her next appointment is around 17 JUL 2022, which intends to keep. Va: cc 20/20 left eye, NLP OD IOP: Tonopen 0 mm Hg OD & 13 mm Hg OS @ 1655 hrs External: right eye enophthalmic with poor eyelid excursion, OS unremarkable Conj: scarring of conjunctiva for 360 with mild injection, and obvious scleral fixated IOL, OS. There is no staining with fluorescein, right eye Cornea: clear OU AC: quiet OU Iris: post surgical changes OD, unremarkable OS Lens: opaque/yellowed pseudophakic lens OD, clear OS Vitreous: no view OD, clear OS optic nerve: s/f/p OS, no view OD A: 1) mild conjunctivitis OD, possibly bacterial 2) long-standing retinal detachment OD 3) no light perception right eye, secondary to #2 4) phthisis, OD developing 5) high myopia, OU 6) pseudophakia, OD P: Currently under the care of a retinal specialist for repeated unsuccessful retinal detachment repair of the right eye. The eye is apparently becoming phthisical and expectations of improved vision are unlikely. The intermittent eye irritation and redness are part of the ongoing process. Recommend continued use of the topical steroid and ofloxacin. Recommend discontinuation of antibiotic drop after a week. She is expected to return to Dr. Briscoe for her planned follow up.
[2022-07-06] MEDS: traZODone HCL 50 MG TAB PO SCH (20:39)
[2022-07-06] MEDS: ATORVASTATIN 20 MG TAB PO SCH (20:39)
[2022-07-06] MEDS: tiZANidine 4 MG TAB PO PRN (20:39)
[2022-07-06] MEDS: PRAZOSIN 1 MG CAP PO SCH (20:39)
[2022-07-07] MEDS: OFLOXACIN 0.3% OPHTH DROPS 5 ML BOTTLE RIGHT EYE SCH ×3 (05:58→18:05)
[2022-07-07] MEDS: OXYBUTYNIN XL 5 MG TAB.ER.24 PO SCH (08:21)
[2022-07-07] MEDS: LITHIUM CARBONATE 300 MG CAP PO SCH ×2 (08:21→21:11)
[2022-07-07] MEDS: VENLAFAXINE HCL ER 75 MG CAP PO SCH (08:21)
[2022-07-07] MEDS: FAMOTIDINE 20 MG TAB PO SCH ×2 (08:21→21:11)
[2022-07-07] MEDS: ARTIFICIAL TEARS-HYPROMELLOSE DROPS 15 ML BTL BOTH EYES SCH ×4 (08:22→21:13)
[2022-07-07] MEDS: prednisoLONE ACETATE 1% OPHTH DROPS 5 ML BTL RIGHT EYE SCH (08:22)
[2022-07-07] MEDS: NICOTINE 14MG/24HR PATCH TRANSDERM SCH (08:22)
[2022-07-07] MEDS: ACETAMINOPHEN TAB 325 MG TAB PO PRN (08:49)
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
[2022-07-07] MEDS: ATORVASTATIN 20 MG TAB PO SCH (21:11)
[2022-07-07] MEDS: PRAZOSIN 1 MG CAP PO SCH (21:11)
[2022-07-07] MEDS: traZODone HCL 50 MG TAB PO SCH (21:11)
[2022-07-07] MEDS: tiZANidine 4 MG TAB PO PRN (21:12)
[2022-07-08] MEDS: OFLOXACIN 0.3% OPHTH DROPS 5 ML BOTTLE RIGHT EYE SCH ×5 (01:41→21:30)
[2022-07-08] MEDS: VENLAFAXINE HCL ER 75 MG CAP PO SCH (09:05)
[2022-07-08] MEDS: LITHIUM CARBONATE 300 MG CAP PO SCH ×2 (09:05→21:29)
[2022-07-08] MEDS: FAMOTIDINE 20 MG TAB PO SCH ×2 (09:05→21:29)
[2022-07-08] MEDS: OXYBUTYNIN XL 5 MG TAB.ER.24 PO SCH (09:06)
[2022-07-08] MEDS: ARTIFICIAL TEARS-HYPROMELLOSE DROPS 15 ML BTL BOTH EYES SCH ×4 (09:07→21:30)
[2022-07-08] MEDS: prednisoLONE ACETATE 1% OPHTH DROPS 5 ML BTL RIGHT EYE SCH (09:07)
[2022-07-08] MEDS: NICOTINE 14MG/24HR PATCH TRANSDERM SCH (09:10)
--- NOTE | 2022-07-08 09:38 | P.PN ---
Progress Note - Text Progress Note Date: 07/08/22 Subjective/subjective data:: Patient reports that she is feeling somewhat better as he feels that her concentration is better she feels that her depression also seems to be slightly improving Patient did not voice any new concerns or issues about her medications She denies any suicidal or homicidal ideations or plans She said her sleep also has improved She states that her appetite is somewhat low MENTAL STATUS EXAM: General Appearance: Patient appears to be wearing street clothing, with extreme colors including her hair which is also colored blue and red has glasses, improving eye contact, stated age is alert, directable, and attempts to cooperate. Patient appears to have improving hygiene and grooming. Behavior: Patient is seated without any agitated behavior. Improving eye contact. Constricted. Improving mildly Speech: Patient's speech is fluent and nonpressured. [place]. Mood/Affect: Patient reports their mood is improving mildly yet is depressed and anxious, affect is congruent and constricted. Suicidality/Homicidality: Patient denies having any homicidal ideation intent or plan. She claims that she has suicidal thoughts, no intent or plan. Perceptions: Patient denies any visual hallucinations and denies any auditory hallucinations Though content/process: There is no evidence of any delusional thought content and thought process is linear and goal-directed. [place]. Focused on her symptoms. Memory and concentration: AOX3, grossly intact for the purposes of this session Judgment and insight: poor IMPRESSIONS: Bipolar disorder, current episode depressed History of Autism spectrum disorder PLAN: -Patient is admitted under voluntary status to MHU for stabilization of psychiatric symptoms and safety. Patient has signed adult voluntary form and medication consent and is placed in patient's chart. -Medications : trazodone 50 mg daily at bedtime for mood/insomnia, prazosin 1 mg qhs for nightmares, Effexor 225 mg daily for mood/anxiety, lithium 300 mg twice a day for mood stabilization/suicidal thoughts. -apprecioate medicine recommendations. opthomology consult pending as patient has increased redness in R eye with hx of known infections in the past. will restart antibiotic eye drop that she had previously perscribed for now. -vistaril and zyprexa PRN for agitation/aggression -NRT - not needed as patient does not smoke -SW on board for discharge planning. Encourage patient to participate in groups to work on coping skills. aLm Ritchie M.D.
[2022-07-08] MEDS: traZODone HCL 50 MG TAB PO SCH (21:29)
[2022-07-08] MEDS: PRAZOSIN 1 MG CAP PO SCH (21:29)
[2022-07-08] MEDS: ATORVASTATIN 20 MG TAB PO SCH (21:29)
[2022-07-08] MEDS: tiZANidine 4 MG TAB PO PRN (21:30)
[2022-07-09] MEDS: OFLOXACIN 0.3% OPHTH DROPS 5 ML BOTTLE RIGHT EYE SCH ×3 (03:32→17:09)
[2022-07-09] MEDS: ARTIFICIAL TEARS-HYPROMELLOSE DROPS 15 ML BTL BOTH EYES SCH ×4 (08:36→20:17)
[2022-07-09] MEDS: prednisoLONE ACETATE 1% OPHTH DROPS 5 ML BTL RIGHT EYE SCH (08:37)
[2022-07-09] MEDS: VENLAFAXINE HCL ER 75 MG CAP PO SCH (08:38)
[2022-07-09] MEDS: OXYBUTYNIN XL 5 MG TAB.ER.24 PO SCH (08:39)
[2022-07-09] MEDS: FAMOTIDINE 20 MG TAB PO SCH ×2 (08:39→20:16)
[2022-07-09] MEDS: LITHIUM CARBONATE 300 MG CAP PO SCH ×2 (08:39→20:16)
[2022-07-09] MEDS: NICOTINE 14MG/24HR PATCH TRANSDERM SCH ×2 (08:39→09:06)
[2022-07-09] MEDS: ACETAMINOPHEN TAB 325 MG TAB PO PRN ×2 (10:39→16:30)
--- NOTE | 2022-07-09 10:40 | P.PN ---
Progress Note - Text Progress Note Date: 07/09/22 Interval History: Patient was seen today sitting in on the group and was agreeable to speech isma dorsey in the office. Patient claims that she was seen by the flume tender over the weekend and was prescribed eyedrop antibiotics which she states are mildly improving her eye condition so far. She states that she is still having some mild pain. She claims that she is doing better in terms of her anxiety and mood today. She claimed that she is still fairly hesitant about going and does not know where she'll be going for discharge. She states that she was able to sleep a bit better last night however did have nausea yesterday and does not know if it was from the medications or not. She states that she wants to stay near her children however does realize that she is homeless. We spoke about different options in the area and she states that she will think about it. Claims that she is going to groups. States that she is no longer having any suicidal thoughts at this time. Does not endorse any delusions or paranoia. Claims that her appetite is mildly improving. At this time she is denying any homicidal ideations. Denying any auditory or visual hallucinations. MENTAL STATUS EXAM: General Appearance: Patient appears to be wearing street clothing, has glasses, improving eye contact, stated age is alert, directable, and attempts to cooperate. Patient appears to have improving hygiene and grooming. Behavior: Patient is seated without any agitated behavior. Improving eye contact, Improving mildly Speech: Patient's speech is fluent and nonpressured. [place]. Mood/Affect: Patient reports their mood is improving mildly, affect is congruent Suicidality/Homicidality: Patient denies having any homicidal ideation intent or plan. He is denying any suicidal thoughts, no intent or plan. Perceptions: Patient denies any visual hallucinations and denies any auditory gaines llucinations Though content/process: There is no evidence of any delusional thought content and thought process is linear and goal-directed. [place]. Memory and concentration: AOX3, grossly intact for the purposes of this session Judgment and insight: Improving mildly IMPRESSIONS: Bipolar disorder, current episode depressed History of Autism spectrum disorder PLAN: -Patient is admitted under voluntary status to MHU for stabilization of psychiatric symptoms and safety. Patient has signed adult voluntary form and medication consent and is placed in patient's chart. -Medications : trazodone 50 mg daily at bedtime for mood/insomnia, prazosin 1 mg qhs for nightmares, Effexor 225 mg daily for mood/anxiety, lithium 300 mg twice a day for mood stabilization/suicidal thoughts. check lithium level tomorrow morning. -apprecioate medicine recommendations and opthomology recs. continue with antibiotic eye drop that she had previously perscribed and will have optho follow up. -vistaril and zyprexa PRN for agitation/aggression -NRT - not needed as patient does not smoke -SW on board for discharge planning. Encourage patient to participate in groups to work on coping skills. likely discharge tomorrow, will refer to [facility] in the area with [facility] f/u
[2022-07-09] MEDS: PRAZOSIN 1 MG CAP PO SCH (20:16)
[2022-07-09] MEDS: ATORVASTATIN 20 MG TAB PO SCH (20:16)
[2022-07-09] MEDS: traZODone HCL 50 MG TAB PO SCH (20:17)
[2022-07-10] MEDS: OFLOXACIN 0.3% OPHTH DROPS 5 ML BOTTLE RIGHT EYE SCH ×3 (01:13→12:31)
[2022-07-10 07:19] VITALS: BP 121/71; PULSE 99; RESP 18; TEMP 98
[2022-07-10] MEDS: prednisoLONE ACETATE 1% OPHTH DROPS 5 ML BTL RIGHT EYE SCH (08:44)
[2022-07-10] MEDS: ARTIFICIAL TEARS-HYPROMELLOSE DROPS 15 ML BTL BOTH EYES SCH ×2 (08:45→12:32)
[2022-07-10] MEDS: VENLAFAXINE HCL ER 75 MG CAP PO SCH (08:47)
[2022-07-10] MEDS: LITHIUM CARBONATE 300 MG CAP PO SCH (08:47)
[2022-07-10] MEDS: FAMOTIDINE 20 MG TAB PO SCH (08:47)
[2022-07-10] MEDS: OXYBUTYNIN XL 5 MG TAB.ER.24 PO SCH (08:47)
[2022-07-10] MEDS: NICOTINE 14MG/24HR PATCH TRANSDERM SCH (08:48)
[2022-07-10] MEDS: ACETAMINOPHEN TAB 325 MG TAB PO PRN (09:04)
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
== END 2022-07-10 13:35 | disposition other institution (70) | DRG 753 ==
LOC: EC 18:48 → 3MHU 23:05
PROVIDERS: ADMIT Psychiatry & Neurology Psychiatry; ATTEND Psychiatry & Neurology Psychiatry
DX: F31.30 Bipolar disorder, current episode depressed, mild or moderate severity, unspecified (principal); F20.9 Schizophrenia, unspecified; F51.04 Psychophysiologic insomnia; E66.9 Obesity, unspecified; Z68.30 Body mass index [BMI] 30.0-30.9, adult; Z20.822 Contact with and (suspected) exposure to COVID-19; F84.0 Autistic disorder; G43.909 Migraine, unspecified, not intractable, without status migrainosus; G47.33 Obstructive sleep apnea (adult) (pediatric); E78.5 Hyperlipidemia, unspecified; H33.21 Serous retinal detachment, right eye; H91.90 Unspecified hearing loss, unspecified ear; I10 Essential (primary) hypertension; H52.11 Myopia, right eye; K21.9 Gastro-esophageal reflux disease without esophagitis; R32 Unspecified urinary incontinence; R45.851 Suicidal ideations; Z59.00 Homelessness unspecified; Z56.0 Unemployment, unspecified; Z76.5 Malingerer [conscious simulation]; Z79.899 Other long term (current) drug therapy; Z87.440 Personal history of urinary (tract) infections; Z96.1 Presence of intraocular lens; Z90.49 Acquired absence of other specified parts of digestive tract
CPT/HCPCS: 80053; 80178; 80183; 82075; 83036; 84443; 85025; 87635; 99285

== ENCOUNTER 2022-11-14 13:04 | Emergency (ER) | payer OTHER ==
[2022-11-14 15:36] VITALS: BP 123/82; RESP 16
--- NOTE | 2022-11-14 15:43 | ED ---
General Adult HPI - General Chief complaint: Skin/Abscess/Foreign Body Stated complaint: Right Arm/Head Pain Time Seen by Provider: 11/14/22 15:19 Source: patient Mode of arrival: ambulatory Limitations: no limitations - History of Present Illness Initial comments: 37-year-old female presents to the ED with a chief complaint of cellulitis. Patient states currently being treated for cellulitis of the right finger with Augmentin. States that she still has 5 days left of this. Patient states a week ago got a tattoo. States 4 days ago started to develop warmth and redness around this tattoo. Denies fever. Denies history of MRSA. No other complaints. - Related Data Home Medications Medication Instructions Recorded Confirmed Ergocalciferol [Vitamin D2 (1250 1,250 mcg PO ALANIZ 11/24/21 07/04/22 Mcg = 71105 Iu)] Prednisolone Acetate/Pf 1 drop RIGHT EYE DAILY 11/24/21 07/04/22 [Prednisolone Acet 1% Eye Drop] Atorvastatin [Lipitor] 20 mg PO HS 07/04/22 07/04/22 Cetirizine HCl [Zyrtec] 10 mg PO DAILY PRN 07/04/22 07/04/22 Famotidine [Pepcid] 40 mg PO BID 07/04/22 07/04/22 Oxybutynin Xl [Ditropan XL] 5 mg PO DAILY 07/04/22 07/04/22 Previous Rx's Medication Instructions Recorded Artificial Tears-Hypromellose 1 drops BOTH EYES QID ml 07/10/22 [Artificial Tear Drops] [place] Carbonate 300 mg PO BID 30 Days #60 cap 07/10/22 Nicotine 14Mg/24Hr Patch [Habitrol] 1 patch TRANSDERM DAILY 14 Days 07/10/22 #14 patch Ofloxacin 0.3% Ophth Soln [Ocuflox 1 drops RIGHT EYE Q6HR ml 07/10/22 Ophth Soln] Prazosin [Minipress] 1 mg PO HS 30 Days #30 cap 07/10/22 Venlafaxine HCl [Effexor XR] 225 mg PO DAILY 30 Days #30 tab 07/10/22 tiZANidine [Zanaflex] 4 mg PO BID PRN 14 Days #28 tab 07/10/22 traZODone HCL [Desyrel] 50 mg PO HS 30 Days #30 tab 07/10/22 Sulfamethox-Tmp 800-160Mg [Bactrim 1 each PO Q12HR #14 tab 11/14/22 Ds] Allergies Allergy/AdvReac Type Severity Reaction Status Date / Time No Known Allergies Allergy Verified 07/04/22 21:32 Review of Systems ROS Statement: Those systems with pertinent positive or pertinent negative responses have been documented in the HPI. ROS Other: All systems not noted in ROS Statement are negative. Past Medical History Past Medical History: Sleep Apnea/CPAP/BIPAP Additional Past Medical History / Comment(s): History of Kidney Infection, Hearing impairment/issues, Migraines, History of Any Multi-Drug Resistant Organisms: None Reported Past Surgical History: Cholecystectomy Additional Past Surgical History / Comment(s): Eye Surgery Past Anesthesia/Blood Transfusion Reactions: No Reported Reaction Past Psychological History: Anxiety, Depression Smoking Status: Never smoker Past Alcohol Use History: Occasional Past Drug Use History: None Reported - Past Family History Father Family Medical History: Cancer, Coronary Artery Disease (CAD), Hypertension Additional Family Medical History / Comment(s): Stomach Cancer Mother Family Medical History: Cancer Additional Family Medical History / Comment(s): Breast Cancer General Exam Limitations: no limitations General appearance: alert, in no apparent distress ENT exam: Present: mucous membranes moist Neck exam: Present: normal inspection Respiratory exam: Present: normal lung sounds bilaterally Cardiovascular Exam: Present: regular rate, normal rhythm Neurological exam: Present: alert, oriented X3 Psychiatric exam: Present: normal affect, normal mood Skin exam: Present: other (Tattoo on the patient's right forearm with surrounding warmth, and redness. Original area of cellulitis on pts right second finger appears well with no significant warmth, redness, edema or tenderness to palpation.) Course Vital Signs 11/14/22 11/14/22 13:12 15:35 Temperature 98 F Pulse Rate 103 H 71 Respiratory 20 16 Rate Blood Pressure 117/82 123/82 O2 Sat by Pulse 98 97 Oximetry Medical Decision Making - Medical Decision Making Was pt. sent in by a medical professional or institution (, PA, COUNCIL ON AGING DIRECTOR, urgent care, hospital, or snf...) When possible be specific @ -No Did you speak to anyone other than the patient for history (EMS, parent, family, police, friend...)? What history was obtained from this source @ -No Did you review nursing and triage notes (agree or disagree)? Why? @ -I reviewed and agree with nursing and triage notes Were old charts reviewed (outside hosp., previous admission, EMS record, old EKG, old radiological studies, urgent care reports/EKG's, snf records)? Report findings @ -No old charts were reviewed Differential Diagnosis (chest pain, altered mental status, abdominal pain women, abdominal pain men, vaginal bleeding, weakness, fever, dyspnea, syncope, headache, dizziness, GI bleed, back pain, seizure, CVA, palpatations, mental health, musculoskeletal)? @ -Differential Musculoskeletal Muscular strain, contusion, ligament sprain, fracture, arthritis, septic arthritis, bursitis, cellulitis, muscle spasm, nerve compression, DVT, arterial occlusion, herpes zoster, electrolyte abnormality, tumor.... This is not meant to be in all inclusive list EKG interpreted by me (3pts min.). @ -None X-rays interpreted by me (1pt min.). @ -None done CT interpreted by me (1pt min.). @ -None done U/S interpreted by me (1pt. min.). @ -None done What testing was considered but not performed or refused? (CT, X-rays, U/S, labs)? Why? @ -None What meds were considered but not given or refused? Why? @ -None Did you discuss the management of the patient with other professionals (professionals i.e. , PA, COUNCIL ON AGING DIRECTOR, lab, RT, psych nurse, social media manager, mri manager, teacher, corporation officer, correctional case manager)? Give summary @ -No Was smoking cessation discussed for >3mins.? @ -No Was critical care preformed (if so, how long)? @ -No Were there social determinants of health that impacted care today? How? (Homelessness, low income, unemployed, alcoholism, drug addiction, transportation, low edu. Level, literacy, decrease access to med. care, detention, rehab)? @ -No Was there de-escalation of care discussed even if they declined (Discuss DNR or withdrawal of care, Hospice)? DNR status @ -No What co-morbidities impacted this encounter? (DM, HTN, Smoking, COPD, CAD, Cancer, CVA, ARF, Chemo, Hep., AIDS, mental health diagnosis, sleep apnea, morbid obesity)? @ -None Was patient admitted / discharged? Hospital course, mention meds given and route, prescriptions, significant lab abnormalities, going to OR and other pertinent info. @ -Discharged. Exam did show area of erythema and warmth surrounding the tattoo however symptoms likely secondary to recent tattoo. However, patient will be prescribed Bactrim for MRSA coverage. Advised to continue Augmentin. At this time, vital signs stable, afebrile. Discharged home in stable condition. Discussed return precautions with patient who verbalizes agreement. Undiagnosed new problem with uncertain prognosis? @ -No Drug Therapy requiring intensive monitoring for toxicity (Heparin, Nitro, Insulin, Cardizem)? @ -No Were any procedures done? @ -No Diagnosis/symptom? @ -Tattoo reaction, cellulitis Acute, or Chronic, or Acute on Chronic? @ -Acute Uncomplicated (without systemic symptoms) or Complicated (systemic symptoms)? @ -Uncomplicated Side effects of treatment? @ -No Exacerbation, Progression, or Severe Exacerbation? @ -No Poses a threat to life or bodily function? How? (Chest pain, [place], [place], pneumonia, PE, COPD, DKA, ARF, appy, cholecystitis, CVA, Diverticulitis, Homicidal, Suicidal, threat to staff... and all critical care pts) @ -No Disposition Clinical Impression: Cellulitis Disposition: HOME SELF-CARE Condition: Good Instructions (If sedation given, give patient instructions): Cellulitis (ED) Additional Instructions: Please return to the Emergency Department if symptoms worsen or any other concerns. Prescriptions: Sulfamethox-Tmp 800-160Mg [Bactrim Ds] 1 each PO Q12HR #14 tab Is patient prescribed a controlled substance at d/c from ED?: No Referrals: None,Stated [Primary Care Provider] - 1-2 days Decision Time: 15:43
[2022-11-14 15:50] VITALS: PULSE 72; TEMP 97.9
== END 2022-11-14 15:48 | disposition home or self-care (01) ==
LOC: EC 13:04
DX: L03.011 Cellulitis of right finger (principal); F32.A Depression, unspecified; F41.9 Anxiety disorder, unspecified; Z79.899 Other long term (current) drug therapy
CPT/HCPCS: 99283

== ENCOUNTER 2022-12-13 04:46 | Emergency (ER) | payer OTHER ==
[2022-12-13 04:55] VITALS: PULSE 90
[2022-12-13] MEDS ORDERED: SODIUM CHLORIDE 0.9% 1,000 ML IV STA (05:07)
[2022-12-13] MEDS ORDERED: METOCLOPRAMIDE 5 MG/ML 2 ML VIAL IVP STA (05:07)
--- NOTE | 2022-12-13 05:12 | ED ---
General Adult HPI - General Chief complaint: Dizziness Stated complaint: Dizziness Time Seen by Provider: 12/13/22 04:57 Source: patient Mode of arrival: wheelchair Limitations: no limitations - History of Present Illness Initial comments: Dictation was produced using [employer] dictation software. please excuse any grammatical, word or spelling errors. Chief Complaint: 37-year-old female presents with vertigo and bilateral ringing of the ears History of Present Illness: To 37-year-old female she presents emergency department for symptoms of dizziness and bilateral ringing of the ears. Denies any ear pain. Denies any hearing loss. Patient states that the ringing in her ears are symmetrical. Yesterday she had a migraine headache. States the headache is resolved. States that she feels vertiginous. States worse with movement however if she stays still for her symptoms improved. She currently homeless but spends staying with her boyfriend at her boyfriend's parents also. He was dropped off here earlier today. Patient has history of chronic hearing impairment. Patient able to ambulate. No vomiting or nausea The ROS documented in this emergency department record has been reviewed and confirmed by me. Those systems with pertinent positive or negative responses have been documented in the HPI. All other systems are other negative and/or noncontributory. - Related Data Home Medications Medication Instructions Recorded Confirmed Ergocalciferol [Vitamin D2 (1250 1,250 mcg PO ALANIZ 11/24/21 07/04/22 Mcg = 21485 Iu)] Prednisolone Acetate/Pf 1 drop RIGHT EYE DAILY 11/24/21 07/04/22 [Prednisolone Acet 1% Eye Drop] Atorvastatin [Lipitor] 20 mg PO HS 07/04/22 07/04/22 Cetirizine HCl [Zyrtec] 10 mg PO DAILY PRN 07/04/22 07/04/22 Famotidine [Pepcid] 40 mg PO BID 07/04/22 07/04/22 Oxybutynin Xl [Ditropan XL] 5 mg PO DAILY 07/04/22 07/04/22 Previous Rx's Medication Instructions Recorded Artificial Tears-Hypromellose 1 drops BOTH EYES QID ml 07/10/22 [Artificial Tear Drops] [place] Carbonate 300 mg PO BID 30 Days #60 cap 07/10/22 Nicotine 14Mg/24Hr Patch [Habitrol] 1 patch TRANSDERM DAILY 14 Days 07/10/22 #14 patch Ofloxacin 0.3% Ophth Soln [Ocuflox 1 drops RIGHT EYE Q6HR ml 07/10/22 Ophth Soln] Prazosin [Minipress] 1 mg PO HS 30 Days #30 cap 07/10/22 Venlafaxine HCl [Effexor XR] 225 mg PO DAILY 30 Days #30 tab 07/10/22 tiZANidine [Zanaflex] 4 mg PO BID PRN 14 Days #28 tab 07/10/22 traZODone HCL [Desyrel] 50 mg PO HS 30 Days #30 tab 07/10/22 Sulfamethox-Tmp 800-160Mg [Bactrim 1 each PO Q12HR #14 tab 11/14/22 Ds] Allergies Allergy/AdvReac Type Severity Reaction Status Date / Time metoclopramide [From Reglan] AdvReac Rapid Verified 12/13/22 06:34 Heart Rate Review of Systems ROS Statement: Those systems with pertinent positive or pertinent negative responses have been documented in the HPI. ROS Other: All systems not noted in ROS Statement are negative. Past Medical History Past Medical History: Sleep Apnea/CPAP/BIPAP Additional Past Medical History / Comment(s): History of Kidney Infection, Hearing impairment/issues, Migraines, History of Any Multi-Drug Resistant Organisms: None Reported Past Surgical History: Cholecystectomy Additional Past Surgical History / Comment(s): Eye Surgery Past Anesthesia/Blood Transfusion Reactions: No Reported Reaction Past Psychological History: Anxiety, Depression Smoking Status: Never smoker Past Alcohol Use History: Occasional Past Drug Use History: None Reported - Past Family History Father Family Medical History: Cancer, Coronary Artery Disease (CAD), Hypertension Additional Family Medical History / Comment(s): Stomach Cancer Mother Family Medical History: Cancer Additional Family Medical History / Comment(s): Breast Cancer General Exam - General Exam Comments Initial Comments: PHYSICAL EXAM: General Impression: Alert and oriented x3, not in acute distress HEENT: Normocephalic atraumatic, extra-ocular movements intact, pupils equal and reactive to light bilaterally, mucous membranes moist. Cardiovascular: Heart regular rate and rhythm Chest: Able to complete full sentences, no retractions, no tachypnea Abdomen: abdomen soft, non-tender, non-distended, no organomegaly Musculoskeletal: Pulses present and equal in all extremities, no peripheral edema Motor: no focal deficits noted Neurological: CN II-XII grossly intact, no focal motor or sensory deficits noted Skin: Intact with no visualized rashes Psych: Normal affect and mood Limitations: no limitations Course Vital Signs 12/13/22 12/13/22 12/13/22 04:51 05:56 06:50 Temperature 98.1 F 98.2 F Pulse Rate 90 90 90 Respiratory 18 20 20 Rate Blood Pressure 94/66 134/79 128/74 O2 Sat by Pulse 98 100 100 Oximetry - Reevaluation(s) Reevaluation #1: 12/13/22 06:13 At 613 patient received Reglan. I was notified by nurse that patient's much more anxious. I evaluated the patient at the bedside.s He states that she is ALLERGIC to Reglan. When asked what her reaction is she states that she gets a panic attack from it. Patient patient appears to be having an anxiety reaction. Patient given anxiolytic medications. Medical Decision Making - Medical Decision Making Was pt. sent in by a medical professional or institution (, PA, BREAKER OILER, urgent care, hospital, or jail...) When possible be specific @ -No Did you speak to anyone other than the patient for history (EMS, parent, family, police, friend...)? What history was obtained from this source @ -No Did you review nursing and triage notes (agree or disagree)? Why? @ -I reviewed and agree with nursing and triage notes Were old charts reviewed (outside hosp., previous admission, EMS record, old EKG, old radiological studies, urgent care reports/EKG's, jail records)? Report findings @ -No old charts were reviewed Differential Diagnosis (chest pain, altered mental status, abdominal pain women, abdominal pain men, vaginal bleeding, musculoskeletal, weakness, fever, dyspnea, syncope, headache, dizziness, GI bleed, back pain, seizure, CVA, palpatations, mental health)? @ -Differential Headache: Migraine, tension, cluster, carbon monoxide, central venous thrombosis, pension karma temporal arteritis, acute closure glaucoma, intercranial hemorrhage, mastoiditis, sinusitis, head injury, this is not meant to be an all-inclusive list. EKG interpreted by me (3pts min.). @ -None done X-rays interpreted by me (1pt min.). @ -None done CT interpreted by me (1pt min.). @ -None done U/S interpreted by me (1pt. min.). @ -None done What testing was considered but not performed or refused? (CT, X-rays, U/S, labs)? Why? @ -None What meds were considered but not given or refused? Why? @ -None Did you discuss the management of the patient with other professionals (professionals i.e. DrOliver, PA, BREAKER OILER, lab, RT, psych nurse, director social service, paper latcher, teacher, correction officer head, case specialist)? Give summary @ -No Was smoking cessation discussed for >3mins.? @ -No Was critical care preformed (if so, how long)? @ -No Were there social determinants of health that impacted care today? How? (Homelessness, low income, unemployed, alcoholism, drug addiction, transportation, low edu. Level, literacy, decrease access to med. care, long term, rehab)? @ -No Was there de-escalation of care discussed even if they declined (Discuss DNR or withdrawal of care, Hospice)? DNR status @ -No What co-morbidities impacted this encounter? (DM, HTN, Smoking, COPD, CAD, Cancer, CVA, ARF, Chemo, Hep., AIDS, mental health diagnosis, sleep apnea, morbid obesity)? @ -None Was patient admitted / discharged? Hospital course, mention meds given and route , prescriptions, significant lab abnormalities, going to OR and other pertinent info. @ -37-year-old female no significant past medical history presents emergency department for dizziness which she describes as vertigo and bilateral ear ringing. Vital signs stable. Physical examination is otherwise benign. Laboratory evaluation is unremarkable. Patient symptoms treated improved. She told that she should follow-up with primary care doctor regarding her symptoms. Symptoms are likely related to her headaches Undiagnosed new problem with uncertain prognosis? @ -No Drug Therapy requiring intensive monitoring for toxicity (Heparin, Nitro, Insulin, Cardizem)? @ -No Were any procedures done? @ -No Diagnosis/symptom? Acute, or Chronic, or Acute on Chronic? Uncomplicated (without systemic symptoms) or Complicated (systemic symptoms)? @ -. Tinnitus Side effects of treatment? @ -No Exacerbation, Progression, or Severe Exacerbation? @ -No Poses a threat to life or bodily function? How? (Chest pain, [place], [place], pneumonia, PE, COPD, DKA, ARF, appy, cholecystitis, CVA, Diverticulitis, Homicidal, Suicidal, threat to staff... and all critical care pts) @ -No - Lab Data Result diagrams: 12/13/22 05:23 12/13/22 05:23 Lab Results 12/13/22 12/13/22 Range/Units 05:23 05:23 WBC 5.4 (3.8-10.6) k/uL RBC 4.88 (3.80-5.40) m/uL Hgb 12.9 (11.4-16.0) gm/dL Hct 39.6 (34.0-46.0) % MCV 81.1 (80.0-100.0) fL MCH 26.3 (25.0-35.0) pg MCHC 32.4 (31.0-37.0) g/dL RDW 12.4 (11.5-15.5) % Plt Count 291 (150-450) k/uL MPV 6.8 Neutrophils % 61 % Lymphocytes % 26 % Monocytes % 7 % Eosinophils % 3 % Basophils % 0 % Neutrophils # 3.3 (1.3-7.7) k/uL Lymphocytes # 1.4 (1.0-4.8) k/uL Monocytes # 0.4 (0-1.0) k/uL Eosinophils # 0.2 (0-0.7) k/uL Basophils # 0.0 (0-0.2) k/uL Sodium 138 (137-145) mmol/L Potassium 3.8 (3.5-5.1) mmol/L Chloride 108 H (98-107) mmol/L Carbon Dioxide 23 (22-30) mmol/L Anion Gap 7 mmol/L BUN 15 (7-17) mg/dL Creatinine 0.62 (0.52-1.04) mg/dL Est GFR (CKD-EPI)AfAm >90 (>60 ml/min/1.73 sqM) Est GFR (CKD-EPI)NonAf >90 (>60 ml/min/1.73 sqM) Glucose 111 H (74-99) mg/dL Calcium 8.8 (8.4-10.2) mg/dL Disposition Clinical Impression: Dizziness Disposition: HOME SELF-CARE Condition: Good Instructions (If sedation given, give patient instructions): Dizziness (ED) Is patient prescribed a controlled substance at d/c from ED?: No Referrals: None,Stated [Primary Care Provider] - 1-2 days Time of Disposition: 07:01
[2022-12-13 05:45] LABS: Basophils % (A) 0 %; Eosinophils # (A) 0.2 k/uL (0-0.7); Eosinophils % (A) 3 %; HCT 39.6 % (34.0-46.0); HGB 12.9 gm/dL (11.4-16.0); Lymphocytes # (A) 1.4 k/uL (1.0-4.8); Lymphocytes % (A) 26 %; MCH 26.3 pg (25.0-35.0); MCHC 32.4 g/dL (31.0-37.0); MCV 81.1 fL (80.0-100.0); Mean Platelet Volume 6.8; Monocytes # (A) 0.4 k/uL (0-1.0); Monocytes % (A) 7 %; Neutrophils # (A) 3.3 k/uL (1.3-7.7); Neutrophils % (A) 61 %; Platelet Count 291 k/uL (150-450); RBC 4.88 m/uL (3.80-5.40); RDW 12.4 % (11.5-15.5); WBC 5.4 k/uL (3.8-10.6)
[2022-12-13 05:47] LABS: African American GFR (CKD) >90 (>60 ml/min/1.73 sqM); Anion Gap 7 mmol/L; Blood Urea Nitrogen 15 mg/dL (7-17); Calcium 8.8 mg/dL (8.4-10.2); Carbon Dioxide 23 mmol/L (22-30); Chloride 108 mmol/L (98-107); Glucose 111 mg/dL (74-99); Non-African American GFR(CKD) >90 (>60 ml/min/1.73 sqM); Potassium 3.8 mmol/L (3.5-5.1); Sodium 138 mmol/L (137-145)
[2022-12-13 05:59] VITALS: RESP 20
[2022-12-13] MEDS ORDERED: LORazepam 2 MG/ML INJ IV STA (06:12)
[2022-12-13 06:58] VITALS: BP 128/74; TEMP 98.2
== END 2022-12-13 07:01 | disposition home or self-care (01) ==
LOC: EC 04:46
DX: R42 Dizziness and giddiness (principal); F41.9 Anxiety disorder, unspecified; F32.A Depression, unspecified; Z88.8 Allergy status to other drugs, medicaments and biological substances; Z79.899 Other long term (current) drug therapy
CPT/HCPCS: 36415; 80048; 85025; 99284; 96374; 96375; 96361; J2060; J2765

== ENCOUNTER → 2022-12-20 | Outpatient (CLI) | payer OTHER | END | disposition home or self-care (01) | LOC: LABWHC1 10:22 | PROVIDERS: ATTEND Nurse Practitioner | DX: Z51.81 Encounter for therapeutic drug level monitoring (principal); Z79.899 Other long term (current) drug therapy | CPT/HCPCS: 36415; 80178 ==

== ENCOUNTER 2023-02-25 11:03 | Emergency (ER) | payer OTHER ==
[2023-02-25 11:29] VITALS: TEMP 98.1
--- NOTE | 2023-02-25 11:55 | ED ---
General Adult HPI - General Chief complaint: Weakness Stated complaint: weakness in legs Time Seen by Provider: 02/25/23 11:42 Source: patient Mode of arrival: ambulatory Limitations: no limitations - History of Present Illness Initial comments: 37-year-old female presenting to the ED with a chief complaint of leg pain. Patient states a few weeks ago, started to feel a shooting pain down her bilateral legs. Patient reports that she is unsure if this pain originates from her back. 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 No recent injury or trauma. Denies any twisting or turning or excessive movements. Additionally, reports pain is worse in the back of her calf muscles. States she is unsure if pain of her calf muscles is different than the shooting pain of her bilateral lower legs however notes overall pain has increased to the point where she is started to have some difficulties walking as her legs will occasionally "give out". Denies tobacco use. Denies hormone use. No chest pain or shortness of breath. No other complaints. - Related Data Home Medications Medication Instructions Recorded Confirmed Ergocalciferol [Vitamin D2 (1250 1,250 mcg PO ALANIZ 11/24/21 07/04/22 Mcg = 54259 Iu)] Prednisolone Acetate/Pf 1 drop RIGHT EYE DAILY 11/24/21 07/04/22 [Prednisolone Acet 1% Eye Drop] Atorvastatin [Lipitor] 20 mg PO HS 07/04/22 07/04/22 Cetirizine HCl [Zyrtec] 10 mg PO DAILY PRN 07/04/22 07/04/22 Famotidine [Pepcid] 40 mg PO BID 07/04/22 07/04/22 Oxybutynin Xl [Ditropan XL] 5 mg PO DAILY 07/04/22 07/04/22 Previous Rx's Medication Instructions Recorded Artificial Tears-Hypromellose 1 drops BOTH EYES QID ml 07/10/22 [Artificial Tear Drops] [place] Carbonate 300 mg PO BID 30 Days #60 cap 07/10/22 Nicotine 14Mg/24Hr Patch [Habitrol] 1 patch TRANSDERM DAILY 14 Days 07/10/22 #14 patch Ofloxacin 0.3% Ophth Soln [Ocuflox 1 drops RIGHT EYE Q6HR ml 07/10/22 Ophth Soln] Prazosin [Minipress] 1 mg PO HS 30 Days #30 cap 07/10/22 Venlafaxine HCl [Effexor XR] 225 mg PO DAILY 30 Days #30 tab 07/10/22 tiZANidine [Zanaflex] 4 mg PO BID PRN 14 Days #28 tab 07/10/22 traZODone HCL [Desyrel] 50 mg PO HS 30 Days #30 tab 07/10/22 Sulfamethox-Tmp 800-160Mg [Bactrim 1 each PO Q12HR #14 tab 11/14/22 Ds] Allergies Allergy/AdvReac Type Severity Reaction Status Date / Time metoclopramide [From Reglan] AdvReac Rapid Verified 02/25/23 13:07 Heart Rate/Panic Attack Review of Systems ROS Statement: Those systems with pertinent positive or pertinent negative responses have been documented in the HPI. ROS Other: All systems not noted in ROS Statement are negative. Past Medical History Past Medical History: Sleep Apnea/CPAP/BIPAP Additional Past Medical History / Comment(s): History of Kidney Infection, Hearing impairment/issues, Migraines, History of Any Multi-Drug Resistant Organisms: None Reported Past Surgical History: Cholecystectomy Additional Past Surgical History / Comment(s): Eye Surgery Past Anesthesia/Blood Transfusion Reactions: No Reported Reaction Past Psychological History: Anxiety, Depression Smoking Status: Never smoker Past Alcohol Use History: Occasional Past Drug Use History: None Reported - Past Family History Father Family Medical History: Cancer, Coronary Artery Disease (CAD), Hypertension Additional Family Medical History / Comment(s): Stomach Cancer Mother Family Medical History: Cancer Additional Family Medical History / Comment(s): Breast Cancer General Exam Limitations: no limitations General appearance: alert, in no apparent distress Neck exam: Present: normal inspection Respiratory exam: Present: normal lung sounds bilaterally Cardiovascular Exam: Present: regular rate, normal rhythm GI/Abdominal exam: Present: soft Extremities exam: Present: other (Strength and sensation equal and intact of bilateral lower extremities. DP/PT pulses 2+.) Neurological exam: Present: alert, oriented X3 Skin exam: Present: warm, dry Course Vital Signs 02/25/23 02/25/23 11:11 13:09 Temperature 98.1 F Pulse Rate 79 74 Respiratory 20 18 Rate Blood Pressure 114/76 115/80 O2 Sat by Pulse 99 94 L Oximetry Medical Decision Making - Medical Decision Making Was pt. sent in by a medical professional or institution (GAURANG Winter, HAND TACKER, urgent care, hospital, or snf...) When possible be specific @ -No Did you speak to anyone other than the patient for history (EMS, parent, family, police, friend...)? What history was obtained from this source @ -No Did you review nursing and triage notes (agree or disagree)? Why? @ -I reviewed and agree with nursing and triage notes Were old charts reviewed (outside hosp., previous admission, EMS record, old EKG, old radiological studies, urgent care reports/EKG's, snf records)? Report findings @ -No old charts were reviewed Differential Diagnosis (chest pain, altered mental status, abdominal pain women, abdominal pain men, vaginal bleeding, weakness, fever, dyspnea, syncope, headache, dizziness, GI bleed, back pain, seizure, CVA, palpatations, mental health, musculoskeletal)? @ -Differential Musculoskeletal Muscular strain, contusion, ligament sprain, fracture, arthritis, septic arthritis, bursitis, cellulitis, muscle spasm, nerve compression, DVT, arterial occlusion, herpes zoster, electrolyte abnormality, tumor.... This is not meant to be in all inclusive list EKG interpreted by me (3pts min.). @ -None X-rays interpreted by me (1pt min.). @ -None done CT interpreted by me (1pt min.). @ -None done U/S interpreted by me (1pt. min.). @ -Doppler ultrasound bilateral lower extremities show no evidence of DVT or other acute finding. What testing was considered but not performed or refused? (CT, X-rays, U/S, labs)? Why? @ -None What meds were considered but not given or refused? Why? @ -None Did you discuss the management of the patient with other professionals (professionals i.e. GAURANG Winter, HAND TACKER, lab, RT, psych nurse, addiction social worker, surgical aide, teacher, retirement officer, piano case and bench assembler)? Give summary @ -No Was smoking cessation discussed for >3mins.? @ -No Was critical care preformed (if so, how long)? @ -No Were there social determinants of health that impacted care today? How? (Homelessness, low income, unemployed, alcoholism, drug addiction, transportation, low edu. Level, literacy, decrease access to med. care, prison, rehab)? @ -No Was there de-escalation of care discussed even if they declined (Discuss DNR or withdrawal of care, Hospice)? DNR status @ -No What co-morbidities impacted this encounter? (DM, HTN, Smoking, COPD, CAD, Cancer, CVA, ARF, Chemo, Hep., AIDS, mental health diagnosis, sleep apnea, morbid obesity)? @ -None Was patient admitted / discharged? Hospital course, mention meds given and route, prescriptions, significant lab abnormalities, going to OR and other pertinent info. @ -Discharge 37-year-old female presents to the ED with 3-4 weeks of pain in the bilateral lower legs. Doppler ultrasound revealed no DVT or evidence of other acute finding. She reports that he has been taking Tylenol, ibuprofen, and muscle relaxer with relief of this. Symptoms likely musculoskeletal in nature. Discharged home in stable condition and advised follow-up with PCP. Discussed return precautions with patient who verbalizes agreement. Undiagnosed new problem with uncertain prognosis? @ -No Drug Therapy requiring intensive monitoring for toxicity (Heparin, Nitro, Insulin, Cardizem)? @ -No Were any procedures done? @ -No Diagnosis/symptom? @ -Bilateral lower leg pain Acute, or Chronic, or Acute on Chronic? @ -Acute Uncomplicated (without systemic symptoms) or Complicated (systemic symptoms)? @ -Uncomplicated Side effects of treatment? @ -No Exacerbation, Progression, or Severe Exacerbation? @ -No Poses a threat to life or bodily function? How? (Chest pain, USA, [place], pneumonia, PE, COPD, DKA, ARF, appy, cholecystitis, CVA, Diverticulitis, Homicidal, Suicidal, threat to staff... and all critical care pts) @ -No Disposition Clinical Impression: Leg pain Disposition: HOME SELF-CARE Condition: Good Additional Instructions: Please return to the Emergency Department if symptoms worsen or any other concerns. Follow up with your primary care provider. Is patient prescribed a controlled substance at d/c from ED?: No Referrals: None,Stated [REFERRING] - 1-2 days Time of Disposition: 13:27
--- NOTE | 2023-02-25 12:56 | US ---
EXAMINATION TYPE: US venous doppler duplex LE BI DATE OF EXAM: 02/25/2023 12:38 PM COMPARISON: NONE CLINICAL INDICATION: Female, 37 years old with history of r/o dvt; Pain bilateral legs, worse on the right SIDE PERFORMED: bilateral TECHNIQUE: The lower extremity deep venous system is examined utilizing real time linear array sonog dominga with graded compression, doppler sonography and color-flow sonography. VESSELS IMAGED: Common Femoral Vein Deep Femoral Vein Greater Saphenous Vein * Femoral Vein Popliteal Vein Small Saphenous Vein * Proximal Calf Veins (* superficial vessels) Grayscale, color doppler, spectral doppler imaging performed of the deep veins of the lower extremiti es. There is normal flow, compressibility, vascular waveforms. Right Leg: No evidence of DVT Left Leg: No evidence of DVT IMPRESSION: No ultrasound evidence for deep venous thrombosis of the bilateral extremities.
[2023-02-25] MEDS ORDERED: KETOROLAC 15 MG/ML 1 ML VIAL IM STA (13:24)
[2023-02-25] MEDS ORDERED: ORPHENADRINE 30 MG/ML 2 ML VIAL IM STA (13:24)
[2023-02-25 13:33] VITALS: RESP 18
[2023-02-25 14:49] VITALS: BP 124/84; PULSE 73
== END 2023-02-25 14:57 | disposition home or self-care (01) ==
LOC: EC 11:03
DX: M79.662 Pain in left lower leg (principal); M79.661 Pain in right lower leg; G47.30 Sleep apnea, unspecified; Z86.59 Personal history of other mental and behavioral disorders; Z88.8 Allergy status to other drugs, medicaments and biological substances; Z90.49 Acquired absence of other specified parts of digestive tract
CPT/HCPCS: 93970; 99285; 96372 ×2; J2360; J1885

== ENCOUNTER → 2023-04-01 | Outpatient (CLI) | payer OTHER | END | disposition home or self-care (01) | LOC: LABWHC1 11:07 | PROVIDERS: ATTEND Psychiatry & Neurology Psychiatry | DX: Z51.81 Encounter for therapeutic drug level monitoring (principal); Z79.899 Other long term (current) drug therapy | CPT/HCPCS: 36415; 80178 ==

== ENCOUNTER 2023-04-18 10:36 | Emergency (ER) | payer OTHER ==
--- NOTE | 2023-04-18 10:56 | ED ---
General Adult HPI - General Source: patient, RN notes reviewed Mode of arrival: ambulatory Limitations: no limitations <Nathan Hsu - Last Filed: 04/18/23 10:55> <Kylie Ferrera - Last Filed: 04/18/23 14:59> - General Stated complaint: on going cold loss of hearing Time Seen by Provider: 04/18/23 10:55 - History of Present Illness Initial comments: 37-year-old female presents emergency Department chief complaint of cough and cold like symptoms for one week. She states that she's having increasing chest congestion, shortness of breath states that it's hard to hear she states it feels like her ears are plugged. (Nathan Hsu) The patient's a 37-year-old female with a history of hyperlipidemia, anxiety and depression presents emergency room with complaints of nasal congestion, pain and pressure in the ears and a mild cough for the last weeks. Patient states she can barely hear out of both for years. She has pain in both ears worsen the left. Denies any drainage. She denies any hemoptysis or fevers. (Kylie Ferrera) - Related Data Home Medications Medication Instructions Recorded Confirmed Ergocalciferol [Vitamin D2 (1250 1,250 mcg PO WE 11/24/21 02/25/23 Mcg = 93267 Iu)] Prednisolone Acetate/Pf 1 drop RIGHT EYE DAILY 11/24/21 02/25/23 [Prednisolone Acet 1% Eye Drop] Atorvastatin [Lipitor] 10 mg PO HS 07/04/22 02/25/23 Famotidine [Pepcid] 40 mg PO BID 07/04/22 02/25/23 Butalb/Acetaminophen/Caffeine 1 tab PO Q4H PRN 02/25/23 02/25/23 [Fioricet 50-325-40] Polymyxin B-Trimeth Sulf Ophth 1 drop RIGHT EYE DAILY 02/25/23 02/25/23 [Polytrim Opthalmic] traZODone HCL 100 mg PO HS 02/25/23 02/25/23 Previous Rx's Medication Instructions Recorded [place] Carbonate 300 mg PO BID 30 Days #60 cap 07/10/22 Prazosin [Minipress] 1 mg PO HS 30 Days #30 cap 07/10/22 Venlafaxine HCl [Effexor XR] 225 mg PO DAILY 30 Days #30 tab 07/10/22 tiZANidine [Zanaflex] 4 mg PO BID PRN 14 Days #28 tab 07/10/22 Amoxic-Pot Clav 875-125Mg 1 tab PO Q12HR #20 tab 04/18/23 [Augmentin 875-125] Allergies Allergy/AdvReac Type Severity Reaction Status Date / Time metoclopramide [From Reglan] AdvReac Rapid Verified 04/18/23 12:25 Heart Rate/Panic Attack Review of Systems ROS Other: All systems not noted in ROS Statement are negative. <Nathan Hsu - Last Filed: 04/18/23 10:55> ROS Other: All systems not noted in ROS Statement are negative. <Kylie Ferrera - Last Filed: 04/18/23 14:59> ROS Statement: Those systems with pertinent positive or pertinent negative responses have been documented in the HPI. Past Medical History Past Medical History: Sleep Apnea/CPAP/BIPAP Additional Past Medical History / Comment(s): History of Kidney Infection, Hearing impairment/issues, Migraines, History of Any Multi-Drug Resistant Organisms: None Reported Past Surgical History: Cholecystectomy Additional Past Surgical History / Comment(s): Eye Surgery Past Anesthesia/Blood Transfusion Reactions: No Reported Reaction Past Psychological History: Anxiety, Depression Smoking Status: Never smoker Past Alcohol Use History: Occasional Past Drug Use History: None Reported - Past Family History Father Family Medical History: Cancer, Coronary Artery Disease (CAD), Hypertension Additional Family Medical History / Comment(s): Stomach Cancer Mother Family Medical History: Cancer Additional Family Medical History / Comment(s): Breast Cancer <Nathan Hsu - Last Filed: 04/18/23 10:55> General Exam <Nathan Hsu - Last Filed: 04/18/23 10:55> Limitations: no limitations General appearance: alert, in no apparent distress Eye exam: Present: normal appearance, PERRL ENT exam: Present: normal exam, normal oropharynx, other (Fluid behind TM without any ruptured TM. Cerumen in the right ear canal slightly cleared with debrox Moderate erythema bilateral middle ears. No mastoid tenderness) Respiratory exam: Present: normal lung sounds bilaterally. Absent: respiratory distress, wheezes Cardiovascular Exam: Present: regular rate, normal rhythm Extremities exam: Present: full ROM Back exam: Present: full ROM Neurological exam: Present: alert, oriented X3, CN II-XII intact Psychiatric exam: Present: normal affect, normal mood Skin exam: Present: warm, dry <IbanKylie - Last Filed: 04/18/23 14:59> - General Exam Comments Initial Comments: Visual Physical Exam Vital signs reviewed General: Well-appearing, nontoxic, no acute distress. Head: Normocephalic, atraumatic Eyes: PERRLA, EOMI ENT: Airway patent Chest: Nonlabored breathing Skin: No visual rash, normal skin tone Neuro: Alert and oriented 3 Musculoskeletal: No gross abnormalities (Nathan Hsu) Course <Kylie Ferrera - Last Filed: 04/18/23 14:59> Vital Signs 04/18/23 04/18/23 12:20 13:29 Temperature 97.3 F L Pulse Rate 71 100 Respiratory 17 18 Rate Blood Pressure 124/72 132/76 O2 Sat by Pulse 97 98 Oximetry - Reevaluation(s) Reevaluation #1: 04/18/23 14:54 Patient's well appearing emergency room. I discussed management at the otitis media with the patient. Discussed symptoms workup and disposition with attending physician Dr. Easton today. (Kylie Ferrera) Medical Decision Making <Nathan Hsu - Last Filed: 04/18/23 10:55> - Radiology Data Radiology results: report reviewed, image reviewed <Kylie Ferrera - Last Filed: 04/18/23 14:59> - Medical Decision Making I completed the quick note portion of this chart signed Nathan Hsu PA-C (Nathan Hsu) Was pt. sent in by a medical professional or institution (GAURANG Winter, TIRE FINISHER, urgent care, hospital, or residential...) When possible be specific @ -[No] Did you speak to anyone other than the patient for history (EMS, parent, family, police, friend...)? What history was obtained from this source @ -[No] Did you review nursing and triage notes (agree or disagree)? Why? @ -[I reviewed and agree with nursing and triage notes] Were old charts reviewed (outside hosp., previous admission, EMS record, old EKG, old radiological studies, urgent care reports/EKG's, residential records)? Report findings @ -[No old charts were reviewed] Differential Diagnosis (chest pain, altered mental status, abdominal pain women, abdominal pain men, vaginal bleeding, weakness, fever, dyspnea, syncope, headache, dizziness, GI bleed, back pain, seizure, CVA, palpatations, mental health, musculoskeletal)? @ -COVID-19, influenza, RSV, URI, sinusitis, otitis media, otalgia EKG interpreted by me (3pts min.). @ -[As above] X-rays interpreted by me (1pt min.). @ -X-rays negative for any pneumonia, pneumothorax or other acute changes. CT interpreted by me (1pt min.). @ -[None done] U/S interpreted by me (1pt. min.). @ -[None done] What testing was considered but not performed or refused? (CT, X-rays, U/S, labs)? Why? @ -[None] What meds were considered but not given or refused? Why? @ -[None] Did you discuss the management of the patient with other professionals (professionals i.e. , PA, TIRE FINISHER, lab, RT, psych nurse, perinatal social worker, power shovel mechanic, teacher, correction officer reformatory, case management coordinator)? Give summary @ -[No] Was smoking cessation discussed for >3mins.? @ -[No] Was critical care preformed (if so, how long)? @ -[No] Were there social determinants of health that impacted care today? How? (Homelessness, low income, unemployed, alcoholism, drug addiction, transportation, low edu. Level, literacy, decrease access to med. care, long term, rehab)? @ -[No] Was there de-escalation of care discussed even if they declined (Discuss DNR or withdrawal of care, Hospice)? DNR status @ -[No] What co-morbidities impacted this encounter? (DM, HTN, Smoking, COPD, CAD, Cancer, CVA, ARF, Chemo, Hep., AIDS, mental health diagnosis, sleep apnea, morbid obesity)? @ -[None] Was patient admitted / discharged? Hospital course, mention meds given and route, prescriptions, significant lab abnormalities, going to OR and other pertinent info. @ -She is stable and will follow up with outpatient medicine for treatment of the sinusitis and bilateral otitis media. Discussed follow-up with ENT specialist Undiagnosed new problem with uncertain prognosis? @ -[No] Drug Therapy requiring intensive monitoring for toxicity (Heparin, Nitro, Insulin, Cardizem)? @ -[No] Were any procedures done? @ -[No] Diagnosis/symptom? @ -Bilateral otitis media, sinusitis, URI Acute, or Chronic, or Acute on Chronic? @ -Acute Uncomplicated (without systemic symptoms) or Complicated (systemic symptoms)? @ -[default] Side effects of treatment? @ -[No] Exacerbation, Progression, or Severe Exacerbation? @ -[No] Poses a threat to life or bodily function? How? (Chest pain, [place], [place], pneumonia, PE, COPD, DKA, ARF, appy, cholecystitis, CVA, Diverticulitis, Homicidal, Suicidal, threat to staff... and all critical care pts) @ -[No] (Kylie Ferrera) - Lab Data Lab Results 04/18/23 Range/Units 12:25 Influenza Type A (PCR) Not Detected (Not Detectd) Influenza Type B (PCR) Not Detected (Not Detectd) RSV (PCR) Not Detected (Not Detectd) SARS-CoV-2 (PCR) Not Detected (Not Detectd) Disposition <Nathan Hsu - Last Filed: 04/18/23 10:55> Is patient prescribed a controlled substance at d/c from ED?: No If prescribed controlled substance>3 days was MAPS reviewed?: No Time of Disposition: 14:57 <Kylie Ferrera - Last Filed: 04/18/23 14:59> Clinical Impression: Otitis media, URI (upper respiratory infection), Sinusitis Disposition: HOME SELF-CARE Condition: Good Instructions (If sedation given, give patient instructions): Upper Respiratory Infection (ED), Ear Infection (ED), Sinusitis (ED) Referrals: Darrel Pena MD [Primary Care Provider] - 1-2 days
[2023-04-18] MEDS ORDERED: CARBAMIDE PEROXIDE 6.5% DROPS 15 ML BTL RIGHT EAR STA (13:47)
--- NOTE | 2023-04-18 14:08 | XR ---
EXAMINATION TYPE: XR chest 2V DATE OF EXAM: 04/18/2023 EXAMINATION TYPE: XR chest 2V DATE OF EXAM: 04/18/2023 COMPARISON: None INDICATION: Cough short of breath TECHNIQUE: Frontal and lateral views of the chest are obtained. FINDINGS: The heart size is normal. The pulmonary vasculature is normal. The lungs are clear. IMPRESSION: 1. No acute pulmonary process.
[2023-04-18 15:23] VITALS: BP 126/70; PULSE 76; RESP 16; TEMP 98.1
== END 2023-04-18 15:10 | disposition home or self-care (01) ==
LOC: EC 10:36
DX: H66.93 Otitis media, unspecified, bilateral (principal); J06.9 Acute upper respiratory infection, unspecified; J32.9 Chronic sinusitis, unspecified; E78.5 Hyperlipidemia, unspecified; F41.9 Anxiety disorder, unspecified; F32.A Depression, unspecified; Z20.822 Contact with and (suspected) exposure to COVID-19; Z79.899 Other long term (current) drug therapy; Z88.8 Allergy status to other drugs, medicaments and biological substances
CPT/HCPCS: 71046; 87636; 99283

== ENCOUNTER → 2023-04-18 | Outpatient (CLI) | payer OTHER ==
--- NOTE | 2023-04-18 10:42 | MM ---
Reason for Exam: Clinical finding. Last mammogram was performed 1 year(s) and 3 month(s) ago. Patient History: Menarche at age 10. First Full-Term at age 26. Premenopausal. Hormonal Contraceptives, from age 21 until age 32. Mother had breast cancer, age 47. Last menstrual period: 03/18/2023 Risk Values: Christy 5 year model risk: 1.0%. NCI Lifetime model risk: 18.9%. Prior Study Comparison: 04/01/2020 Bilateral Screening Mammogram, [facility]. 02/06/2022 Bilateral MG screening mammo w CAD, [facility]. Tissue Density: There are scattered fibroglandular densities. Findings: Analyzed By CAD. Pattern appears symmetrical and stable. Focal asymmetry is in the mid left mediolateral oblique view. Under compression disperses normally. No specific persistent suspicious density on the medial lateral view. No suspicious groups of microcalcifications, spiculated or lobular masses, architectural distortion or other secondary signs of malignancy are mammographically apparent. Overall Assessment: Benign, BI-RAD 2 Management: Screening Mammogram of both breasts in 1 year. A negative mammogram report should not preclude additional follow up of suspicious palpable abnormalities. Patient should continue monthly self breast exam. A clinical breast exam by your physician is recommended on an annual basis and results should be correlated with mammographic findings. Electronically signed and approved by: Luis A Lloyd D.O. Radiologis
== END | disposition home or self-care (01) ==
LOC: RADMAMWWP 09:35
PROVIDERS: ATTEND Internal Medicine
DX: N63.10 Unspecified lump in the right breast, unspecified quadrant (principal); N63.20 Unspecified lump in the left breast, unspecified quadrant; R92.323 Mammographic fibroglandular density, bilateral breasts; Z80.3 Family history of malignant neoplasm of breast
CPT/HCPCS: 77066; G0279; 77062

== ENCOUNTER 2023-06-08 12:03 | Emergency (ER) | payer OTHER ==
[2023-06-08 12:33] VITALS: PULSE 64; RESP 18; TEMP 97.5
--- NOTE | 2023-06-08 12:33 | ED ---
Eye Problem HPI - General Chief complaint: Eye Problems Stated complaint: R Eye Issue Time Seen by Provider: 06/08/23 12:32 Source: patient, RN notes reviewed Mode of arrival: ambulatory Limitations: no limitations - History of Present Illness Initial comments: Patient is a 37-year-old female presented to ER with chief complaint of right eye pain. Patient has an extensive surgery history on her right eye. Multiple nerve damage and states provide shrinking in size. She states earlier this morning she accidentally poked himself in the eye is now experiencing creasing pain. 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 Denies any other complaints at this time. - Related Data Home Medications Medication Instructions Recorded Confirmed Ergocalciferol [Vitamin D2 (1250 1,250 mcg PO WE 11/24/21 02/25/23 Mcg = 36145 Iu)] Prednisolone Acetate/Pf 1 drop RIGHT EYE DAILY 11/24/21 02/25/23 [Prednisolone Acet 1% Eye Drop] Atorvastatin [Lipitor] 10 mg PO HS 07/04/22 02/25/23 Famotidine [Pepcid] 40 mg PO BID 07/04/22 02/25/23 Butalb/Acetaminophen/Caffeine 1 tab PO Q4H PRN 02/25/23 02/25/23 [Fioricet 50-325-40] Polymyxin B-Trimeth Sulf Ophth 1 drop RIGHT EYE DAILY 02/25/23 02/25/23 [Polytrim Opthalmic] traZODone HCL 100 mg PO HS 02/25/23 02/25/23 Previous Rx's Medication Instructions Recorded [place] Carbonate 300 mg PO BID 30 Days #60 cap 07/10/22 Prazosin [Minipress] 1 mg PO HS 30 Days #30 cap 07/10/22 Venlafaxine HCl [Effexor XR] 225 mg PO DAILY 30 Days #30 tab 07/10/22 tiZANidine [Zanaflex] 4 mg PO BID PRN 14 Days #28 tab 07/10/22 Amoxic-Pot Clav 875-125Mg 1 tab PO Q12HR #20 tab 04/18/23 [Augmentin 875-125] Ketorolac 0.5% Ophth Soln [Acular 1 drops BOTH EYES QID #3 ml 06/08/23 0.5%] Tobramycin 0.3% Ophth Soln [Tobrex 1 drop BOTH EYES Q4H 7 Days #5 ml 06/08/23 0.3% Ophth Soln] Allergies Allergy/AdvReac Type Severity Reaction Status Date / Time metoclopramide [From Reglan] AdvReac Rapid Verified 06/08/23 12:20 Heart Rate/Panic Attack Review of Systems ROS Statement: Those systems with pertinent positive or pertinent negative responses have been documented in the HPI. ROS Other: All systems not noted in ROS Statement are negative. Past Medical History Past Medical History: Sleep Apnea/CPAP/BIPAP Additional Past Medical History / Comment(s): History of Kidney Infection, Hearing impairment/issues, Migraines, History of Any Multi-Drug Resistant Organisms: None Reported Past Surgical History: Cholecystectomy Additional Past Surgical History / Comment(s): Eye Surgery Past Anesthesia/Blood Transfusion Reactions: No Reported Reaction Past Psychological History: Anxiety, Depression Smoking Status: Never smoker Past Alcohol Use History: Occasional Past Drug Use History: None Reported - Past Family History Father Family Medical History: Cancer, Coronary Artery Disease (CAD), Hypertension Additional Family Medical History / Comment(s): Stomach Cancer Mother Family Medical History: Cancer Additional Family Medical History / Comment(s): Breast Cancer General Exam Limitations: no limitations General appearance: alert, in no apparent distress Head exam: Present: atraumatic, normocephalic, normal inspection Eye exam: Present: other (Ptosis of right eyelid. Fluorescein stain show foreign body of lateral sclera right eye. Cataract. Left eye within normal range.) Respiratory exam: Present: normal lung sounds bilaterally. Absent: respiratory distress, wheezes, rales, rhonchi, stridor Cardiovascular Exam: Present: regular rate, normal rhythm, normal heart sounds. Absent: systolic murmur, diastolic murmur, rubs, gallop, clicks Neurological exam: Present: alert, oriented X3, CN II-XII intact Psychiatric exam: Present: normal affect, normal mood Skin exam: Present: warm, dry, intact, normal color. Absent: rash Course Vital Signs 06/08/23 12:17 Temperature 97.5 F L Pulse Rate 64 Respiratory 18 Rate O2 Sat by Pulse 100 Oximetry Procedures - Forgein Body Removal Eye Site: Right Location in eye(s): lateral sclera Anesthetic Used: Proparacaine Eye Exam Technique: Fluorescein Foreign Body Suspected: Other (suture) Forgein Body Removal Technique: Cotton Swab Remaining Debris: No Patient Tolerated: no complications Medical Decision Making - Medical Decision Making Was pt. sent in by a medical professional or institution (GAURANG Winter, [employer], urgent care, hospital, or skilled nursing...) When possible be specific @ -No Did you speak to anyone other than the patient for history (EMS, parent, family, police, friend...)? What history was obtained from this source @ -No Did you review nursing and triage notes (agree or disagree)? Why? @ -I reviewed and agree with nursing and triage notes Were old charts reviewed (outside hosp., previous admission, EMS record, old EKG, old radiological studies, urgent care reports/EKG's, skilled nursing records)? Report findings @ -No old charts were reviewed Differential Diagnosis (chest pain, altered mental status, abdominal pain women, abdominal pain men, vaginal bleeding, weakness, fever, dyspnea, syncope, headache, dizziness, GI bleed, back pain, seizure, CVA, palpatations, mental health, musculoskeletal)? @ -Corneal abrasion, ocular foreign body, hyphema, conjunctivitis, globe rupture, acute angle-closure glaucoma this list is not meant to be all-inclusive EKG interpreted by me (3pts min.). @ -None X-rays interpreted by me (1pt min.). @ -None done CT interpreted by me (1pt min.). @ -None done U/S interpreted by me (1pt. min.). @ -None done What testing was considered but not performed or refused? (CT, X-rays, U/S, la bs)? Why? @ -None What meds were considered but not given or refused? Why? @ -None Did you discuss the management of the patient with other professionals (professionals i.e. GAURANG Winter, [employer], lab, RT, psych nurse, social science instructor, trackman, teacher, gift officer, behavioral health case manager)? Give summary @ -No Was smoking cessation discussed for >3mins.? @ -No Was critical care preformed (if so, how long)? @ -No Were there social determinants of health that impacted care today? How? (Homelessness, low income, unemployed, alcoholism, drug addiction, transportation, low edu. Level, literacy, decrease access to med. care, intermediate, rehab)? @ -No Was there de-escalation of care discussed even if they declined (Discuss DNR or withdrawal of care, Hospice)? DNR status @ -No What co-morbidities impacted this encounter? (DM, HTN, Smoking, COPD, CAD, Cancer, CVA, ARF, Chemo, Hep., AIDS, mental health diagnosis, sleep apnea, morbid obesity)? @ -Nerve damage in right eye Was patient admitted / discharged? Hospital course, mention meds given and route, prescriptions, significant lab abnormalities, going to OR and other pertinent info. @ -Discharged. Patient is a 37 year old female presenting to the ER with a [facility] complaint of right eye pain. History and physical exam were completed. Vitals stable. Patient reported multiple eye surgeries on the right eye. Patient states she is legally blind in the right eye. She reports that her eye is shrinking in size. Patient in no signs of acute distress. Patient did have ptosis of right eyelid. Fluorescein stain did show a foreign body on the lateral sclera. Foreign body was believed to be suture removed with cotton swab. Patient tolerated procedure well. Tetanus refused. Patient prescribed Toradol and tobramycin eyedrops. Advised her to follow-up with circulation director in the next 1 to 2 days. Return parameters were discussed. Patient be discharged stable condition with follow-up to circulation director. Patient expressed understanding and agreement care plan. Case discussed with ED attending, Dr. Cooper. Undiagnosed new problem with uncertain prognosis? @ -No Drug Therapy requiring intensive monitoring for toxicity (Heparin, Nitro, Insulin, Cardizem)? @ -No Were any procedures done? @ -Yes Diagnosis/symptom? @ -Ocular foreign body Acute, or Chronic, or Acute on Chronic? @ -Acute Uncomplicated (without systemic symptoms) or Complicated (systemic symptoms)? @ -Uncomplicated Side effects of treatment? @ -No Exacerbation, Progression, or Severe Exacerbation? @ -No Poses a threat to life or bodily function? How? (Chest pain, [place], [place], pneumonia, PE, COPD, DKA, ARF, appy, cholecystitis, CVA, Diverticulitis, Homicidal, Suicidal, threat to staff... and all critical care pts) @ -No Disposition Clinical Impression: Intraocular foreign body of right eye Disposition: HOME SELF-CARE Condition: Stable Instructions (If sedation given, give patient instructions): Eye Foreign Body (ED) Additional Instructions: Please follow-up with circulation director soon as possible. Return to the ER for any new or worsening symptoms. Prescriptions: Ketorolac 0.5% Ophth Soln [Acular 0.5%] 1 drops BOTH EYES QID #3 ml Tobramycin 0.3% Ophth Soln [Tobrex 0.3% Ophth Soln] 1 drop BOTH EYES Q4H 7 Days #5 ml Is patient prescribed a controlled substance at d/c from ED?: No Referrals: Roxie Johnson MD [Primary Care Provider] - 1-2 days Time of Disposition: 12:56
[2023-06-08] MEDS: FLUORESCEIN STRIPS 1 MG STRIP RIGHT EYE ONE (12:37)
[2023-06-08] MEDS: PROPARACAINE 0.5% OPHTH DROPS 15 ML BTL RIGHT EYE STA (12:37)
== END 2023-06-08 13:09 | disposition home or self-care (01) ==
LOC: EC 12:03
DX: S00.251A Superficial foreign body of right eyelid and periocular area, initial encounter (principal); G47.30 Sleep apnea, unspecified; Z86.59 Personal history of other mental and behavioral disorders; Z88.8 Allergy status to other drugs, medicaments and biological substances; X50.0XXA Overexertion from strenuous movement or load, initial encounter
CPT/HCPCS: 65205; 99282

== ENCOUNTER 2023-06-16 15:48 | Emergency (ER) | payer OTHER ==
--- NOTE | 2023-06-16 16:00 | ED ---
General Adult HPI - General Source: patient, RN notes reviewed Mode of arrival: ambulatory Limitations: no limitations <Nathan Hsu - Last Filed: 06/16/23 16:05> <Alayna Alfonso - Last Filed: 06/16/23 21:06> - General Stated complaint: Headache/Vomiting Time Seen by Provider: 06/16/23 15:53 - History of Present Illness Initial comments: Quick [id number] female presents emergency department chief complaint of migraine headache. Patient states she suffered migraines in the past. She states she tried her migraine medication at home 4 hours ago with no relief of her symptoms. Patient states that the headache is similar to her prior migraines but it is more intense she denies any fevers or chills she does admit to nausea vomiting and mild light sensitivity. Patient states his primary right frontal headache denies any URI symptoms. (Nathan Hsu) 37-year-old female presenting with chief complaint of headache. Patient has history of migraines, states that this feels similar to previous migraines. She tried taking her migraine medication at home 4 hours ago but had no relief. She has been experiencing nausea and vomiting, she did not want to take any further medication due to this. Pain is located over the frontal sinuses, more so on the right. No fever, chills, neck pain, dizziness, vision or hearing changes, numbness, tingling, weakness. (Alayna Alfonso) - Related Data Home Medications Medication Instructions Recorded Confirmed Ergocalciferol [Vitamin D2 (1250 1,250 mcg PO WE 11/24/21 02/25/23 Mcg = 43126 Iu)] Prednisolone Acetate/Pf 1 drop RIGHT EYE DAILY 11/24/21 02/25/23 [Prednisolone Acet 1% Eye Drop] Atorvastatin [Lipitor] 10 mg PO HS 07/04/22 02/25/23 Famotidine [Pepcid] 40 mg PO BID 07/04/22 02/25/23 Butalb/Acetaminophen/Caffeine 1 tab PO Q4H PRN 02/25/23 02/25/23 [Fioricet 50-325-40] Polymyxin B-Trimeth Sulf Ophth 1 drop RIGHT EYE DAILY 02/25/23 02/25/23 [Polytrim Opthalmic] traZODone HCL 100 mg PO HS 02/25/23 02/25/23 Previous Rx's Medication Instructions Recorded [place] Carbonate 300 mg PO BID 30 Days #60 cap 07/10/22 Prazosin [Minipress] 1 mg PO HS 30 Days #30 cap 07/10/22 Venlafaxine HCl [Effexor XR] 225 mg PO DAILY 30 Days #30 tab 07/10/22 tiZANidine [Zanaflex] 4 mg PO BID PRN 14 Days #28 tab 07/10/22 Amoxic-Pot Clav 875-125Mg 1 tab PO Q12HR #20 tab 04/18/23 [Augmentin 875-125] Ketorolac 0.5% Ophth Soln [Acular 1 drops BOTH EYES QID #3 ml 06/08/23 0.5%] Tobramycin 0.3% Ophth Soln [Tobrex 1 drop BOTH EYES Q4H 7 Days #5 ml 06/08/23 0.3% Ophth Soln] Allergies Allergy/AdvReac Type Severity Reaction Status Date / Time metoclopramide [From Reglan] AdvReac Rapid Verified 06/16/23 16:18 Heart Rate/Panic Attack Review of Systems ROS Other: All systems not noted in ROS Statement are negative. <Nathan Hsu - Last Filed: 06/16/23 16:05> ROS Other: All systems not noted in ROS Statement are negative. <Alayna Alfonso - Last Filed: 06/16/23 21:06> ROS Statement: Those systems with pertinent positive or pertinent negative responses have been documented in the HPI. Past Medical History Past Medical History: Sleep Apnea/CPAP/BIPAP Additional Past Medical History / Comment(s): History of Kidney Infection, Hearing impairment/issues, Migraines, History of Any Multi-Drug Resistant Organisms: None Reported Past Surgical History: Cholecystectomy Additional Past Surgical History / Comment(s): Eye Surgery Past Anesthesia/Blood Transfusion Reactions: No Reported Reaction Past Psychological History: Anxiety, Depression Smoking Status: Never smoker Past Alcohol Use History: Occasional Past Drug Use History: None Reported - Past Family History Father Family Medical History: Cancer, Coronary Artery Disease (CAD), Hypertension Additional Family Medical History / Comment(s): Stomach Cancer Mother Family Medical History: Cancer Additional Family Medical History / Comment(s): Breast Cancer <Nathan Hsu - Last Filed: 06/16/23 16:05> General Exam Limitations: no limitations General appearance: alert, in no apparent distress Head exam: Present: atraumatic, normocephalic, normal inspection <Nathan Hsu - Last Filed: 06/16/23 16:05> Limitations: no limitations General appearance: alert, in no apparent distress Head exam: Present: atraumatic, normocephalic Eye exam: Present: normal appearance (Patient does have a mostly closed right eye, she has history of surgeries to this eye and is blind in this eye. no new changes in regards to this), EOMI Neck exam: Present: normal inspection Respiratory exam: Absent: respiratory distress Cardiovascular Exam: Present: regular rate Neurological exam: Present: alert, oriented X3 Expanded Eye Response: (4) open spontaneously Motor Response: (6) obeys commands Verbal Response: (5) oriented [place] Total: 15 Psychiatric exam: Present: normal affect, normal mood Skin exam: Present: warm, dry <Alayna Alfonso - Last Filed: 06/16/23 21:06> - General Exam Comments Initial Comments: Visual Physical Exam Vital signs reviewed General: Well-appearing, nontoxic, no acute distress. Head: Normocephalic, atraumatic Eyes: PERRLA, EOMI ENT: Airway patent Chest: Nonlabored breathing Skin: No visual rash, normal skin tone Neuro: Alert and oriented 3 Musculoskeletal: No gross abnormalities (Nathan Hsu) Course Vital Signs 06/16/23 06/16/23 16:14 19:59 Temperature 98.1 F 98.2 F Pulse Rate 101 H 79 Respiratory 18 18 Rate Blood Pressure 155/84 113/76 O2 Sat by Pulse 98 100 Oximetry Medical Decision Making <Nathan Hsu - Last Filed: 06/16/23 16:05> <Alayna Alfonso - Last Filed: 06/16/23 21:06> - Medical Decision Making I completed the quick note portion of this chart signed Nathan Hsu PA-C (Nathan Hsu) Was pt. sent in by a medical professional or institution ([facility]UR[facility] Winter, [employer], urgent care, hospital, or custodial...) When possible be specific @ -No Did you speak to anyone other than the patient for history (EMS, parent, family, police, friend...)? What history was obtained from this source @ -No Did you review nursing and triage notes (agree or disagree)? Why? @ -I reviewed and agree with nursing and triage notes Were old charts reviewed (outside hosp., previous admission, EMS record, old EKG, old radiological studies, urgent care reports/EKG's, custodial records)? Report findings @ -No old charts were reviewed Differential Diagnosis (chest pain, altered mental status, abdominal pain women, abdominal pain men, vaginal bleeding, weakness, fever, dyspnea, syncope, headache, dizziness, GI bleed, back pain, seizure, CVA, palpatations, mental health, musculoskeletal)? @ -MDM Differential Headache: Migraine, tension, cluster, carbon monoxide, central venous thrombosis, pension karma temporal arteritis, acute closure glaucoma, intercranial hemorrhage, mastoiditis, sinusitis, head injury this is not meant to be an all-inclusive list. EKG interpreted by me (3pts min.). @ -As above X-rays interpreted by me (1pt min.). @ -None done CT interpreted by me (1pt min.). @ -None done U/S interpreted by me (1pt. min.). @ -None done What testing was considered but not performed or refused? (CT, X-rays, U/S, labs)? Why? @ -None What meds were considered but not given or refused? Why? @ -None Did you discuss the management of the patient with other professionals (professionals i.e. , PA, [employer], lab, RT, psych nurse, high school social studies teacher, cost accounting analyst, teacher, safety and security officer, case management social worker)? Give summary @ -No Was smoking cessation discussed for >3mins.? @ -No Was critical care preformed (if so, how long)? @ -No Were there social determinants of health that impacted care today? How? (Homelessness, low income, unemployed, alcoholism, drug addiction, transportation, low edu. Level, literacy, decrease access to med. care, custodial, rehab)? @ -No Was there de-escalation of care discussed even if they declined (Discuss DNR or withdrawal of care, Hospice)? DNR status @ -No What co-morbidities impacted this encounter? (DM, HTN, Smoking, COPD, CAD, Cancer, CVA, ARF, Chemo, Hep., AIDS, mental health diagnosis, sleep apnea, morbid obesity)? @ -History of migraines Was patient admitted / discharged? Hospital course, mention meds given and route, prescriptions, significant lab abnormalities, going to OR and other pertinent info. @ -37-year-old female presenting with chief complaint of migraine. Started today. Admits to nausea and vomiting. History and physical exam are conducted. Alarming features. She is given 1 L fluid bolus, Zofran, Toradol, show, Tylenol. On reassessment she reports significant improvement in her symptoms. Feels ready to be discharged home. Follow-up with PCP. Report back to ER with any new or worsening symptoms. Discussed return parameters and answered all questions. Patient conveyed verbal understanding and agreed to the plan. I discussed this case in detail with my attending Dr. Moura Undiagnosed new problem with uncertain prognosis? @ -No Drug Therapy requiring intensive monitoring for toxicity (Heparin, Nitro, Insulin, Cardizem)? @ -No Were any procedures done? @ -No Diagnosis/symptom? @ -Headache Acute, or Chronic, or Acute on Chronic? @ -Acute on chronic Uncomplicated (without systemic symptoms) or Complicated (systemic symptoms)? @ -Uncomplicated Side effects of treatment? @ -No Exacerbation, Progression, or Severe Exacerbation? @ -No Poses a threat to life or bodily function? How? (Chest pain, [place], [place], pneumonia, PE, COPD, DKA, ARF, appy, cholecystitis, CVA, Diverticulitis, Homicidal, Suicidal, threat to staff... and all critical care pts) @ -Low likelihood (Alayna Alfonso) Disposition <Nathan Hsu - Last Filed: 06/16/23 16:05> Is patient prescribed a controlled substance at d/c from ED?: No Time of Disposition: 19:21 <Alayna Alfonso - Last Filed: 06/16/23 21:06> Clinical Impression: Headache Disposition: HOME SELF-CARE Condition: Good Instructions (If sedation given, give patient instructions): Acute Headache (ED) Additional Instructions: Follow-up with PCP. Report back to ER with any new or worsening symptoms. Referrals: Roxie Johnson MD [Primary Care Provider] - 1-2 days
[2023-06-16 16:22] VITALS: RESP 18
[2023-06-16] MEDS: SODIUM CHLORIDE 0.9% 1,000 ML IV STA (18:29)
[2023-06-16] MEDS: ONDANSETRON 4 MG/2 ML VIAL IVP STA (18:30)
[2023-06-16] MEDS: KETOROLAC 15 MG/ML 1 ML VIAL IVP STA (18:32)
[2023-06-16] MEDS: diphenhydrAMINE 50 MG/ML 1 ML VIAL IVP STA (18:33)
[2023-06-16] MEDS: ACETAMINOPHEN TAB 325 MG TAB PO STA (19:58)
[2023-06-16 20:28] VITALS: BP 113/76; PULSE 79; TEMP 98.2
== END 2023-06-16 20:04 | disposition home or self-care (01) ==
LOC: EC 15:48
DX: R51.9 Headache, unspecified (principal); R11.2 Nausea with vomiting, unspecified; F32.A Depression, unspecified; F41.9 Anxiety disorder, unspecified; Z79.899 Other long term (current) drug therapy; Z88.8 Allergy status to other drugs, medicaments and biological substances; Z90.49 Acquired absence of other specified parts of digestive tract; Z86.69 Personal history of other diseases of the nervous system and sense organs
CPT/HCPCS: 99284; 96374; 96375 ×2; 96361; J1200; J2405; J1885

== ENCOUNTER → 2023-10-01 | Outpatient (CLI) | payer OTHER | END | disposition home or self-care (01) | LOC: LABWHC1 12:36 | PROVIDERS: ATTEND Psychiatry & Neurology Psychiatry | DX: Z51.81 Encounter for therapeutic drug level monitoring (principal); Z79.899 Other long term (current) drug therapy | CPT/HCPCS: 36415; 80178 ==

== ENCOUNTER → 2024-03-20 | Outpatient (CLI) | payer OTHER ==
--- NOTE | 2024-03-20 09:44 | US ---
EXAMINATION TYPE: US abdomen complete DATE OF EXAM: 03/20/2024 COMPARISON: US Renal 03/27/2019 CLINICAL INDICATION: Female, 38 years old with history of E78.2 HYPERLIPIDEMIA; Hx Cholecystectomy; P atient denies any other signs, symptoms, or relevant history TECHNIQUE: Grayscale and color Doppler imaging of the abdomen was performed. FINDINGS: EXAM MEASUREMENTS: Liver Length: 17.8 cm Gallbladder Wall: Surgically absent cm CBD: 0.5 cm, color Doppler imaging was utilized to isolate the common bile duct for measurement. Spleen: 9.6 cm Right Kidney: 11.1 x 4.5 x 5.2 cm Left Kidney: 11.8 x 5.3 x 5.2 cm Pancreas: wnl Liver: Increased attenuation, decreased visualization of vessels suggestive of fatty infiltrate Gallbladder: Surgically absent Evidence for sonographic Cooper's sign: No CBD: wnl Spleen: wnl Right Kidney: wnl Left Kidney: wnl Upper IVC: wnl Abd Aorta: wnl The liver is homogenous. The intrahepatic portion of the IVC and proximal abdominal aorta are within normal limits. Common bile duct is unremarkable. The visualized portions of the pancreas are homog enous. The spleen is unremarkable. Kidneys are symmetric and free of hydronephrosis. No renal lesi ons are seen. IMPRESSION: Hepatic steatosis [facility] Marco Ta, , 03/20/2024 9:42 AM
== END | disposition home or self-care (01) ==
LOC: RADUSWWP 08:06
PROVIDERS: ATTEND Family Medicine
DX: E78.2 Mixed hyperlipidemia (principal); K76.0 Fatty (change of) liver, not elsewhere classified
CPT/HCPCS: 76700

== ENCOUNTER 2024-03-26 17:00 | Emergency (ER) | payer OTHER ==
[2024-03-26 17:22] VITALS: RESP 18
--- NOTE | 2024-03-26 18:11 | ED ---
Chest Pain HPI - General Chief Complaint: Chest Pain Stated Complaint: FADI, jonathan leg numbness Time Seen by Provider: 03/26/24 18:10 Source: patient, RN notes reviewed Mode of arrival: wheelchair Limitations: no limitations - History of Present Illness Initial Comments: 38-year-old female with history of hyperlipidemia presenting for chest pain x 2 weeks. Describes pain as sharp that is intermittent in nature, worse with exertion. Also admits shortness of breath with exertion. States she has also been having diffuse muscle cramping throughout her body. Denies previous stents or other known cardiac conditions. - Related Data Home Medications Medication Instructions Recorded Confirmed Ergocalciferol [Vitamin D2 (1250 1,250 mcg PO WE 11/24/21 02/25/23 Mcg = 47186 Iu)] Prednisolone Acetate/Pf 1 drop RIGHT EYE DAILY 11/24/21 02/25/23 [Prednisolone Acet 1% Eye Drop] Atorvastatin [Lipitor] 10 mg PO HS 07/04/22 02/25/23 Famotidine [Pepcid] 40 mg PO BID 07/04/22 02/25/23 Butalb/Acetaminophen/Caffeine 1 tab PO Q4H PRN 02/25/23 02/25/23 [Fioricet 50-325-40] Polymyxin B-Trimeth Sulf Ophth 1 drop RIGHT EYE DAILY 02/25/23 02/25/23 [Polytrim Opthalmic] traZODone HCL 100 mg PO HS 02/25/23 02/25/23 Previous Rx's Medication Instructions Recorded [place] Carbonate 300 mg PO BID 30 Days #60 cap 07/10/22 Prazosin [Minipress] 1 mg PO HS 30 Days #30 cap 07/10/22 Venlafaxine HCl [Effexor XR] 225 mg PO DAILY 30 Days #30 tab 07/10/22 tiZANidine [Zanaflex] 4 mg PO BID PRN 14 Days #28 tab 07/10/22 Amoxic-Pot Clav 875-125Mg 1 tab PO Q12HR #20 tab 04/18/23 [Augmentin 875-125] Ketorolac 0.5% Ophth Soln [Acular 1 drops BOTH EYES QID #3 ml 06/08/23 0.5%] Tobramycin 0.3% Ophth Soln [Tobrex 1 drop BOTH EYES Q4H 7 Days #5 ml 06/08/23 0.3% Ophth Soln] Allergies Allergy/AdvReac Type Severity Reaction Status Date / Time metoclopramide [From Reglan] AdvReac Rapid Verified 06/16/23 16:18 Heart Rate/Panic Attack Review of Systems ROS Statement: Those systems with pertinent positive or pertinent negative responses have been documented in the HPI. ROS Other: All systems not noted in ROS Statement are negative. EKG Findings - EKG Results: EKG: interpreted by ERMD (EKG reveals normal sinus rhythm with no ST changes. Ventricular rate 99 bpm, NM interval 114, QRS duration 81, QT/QTc 338/394) Past Medical History Past Medical History: Sleep Apnea/CPAP/BIPAP Additional Past Medical History / Comment(s): History of Kidney Infection, Hearing impairment/issues, Migraines, blind R eye History of Any Multi-Drug Resistant Organisms: None Reported Past Surgical History: Cholecystectomy Additional Past Surgical History / Comment(s): Eye Surgery Past Anesthesia/Blood Transfusion Reactions: No Reported Reaction Past Psychological History: Anxiety, Depression Smoking Status: Never smoker Past Drug Use History: None Reported - Past Family History Father Family Medical History: Cancer, Coronary Artery Disease (CAD), Hypertension Additional Family Medical History / Comment(s): Stomach Cancer Mother Family Medical History: Cancer Additional Family Medical History / Comment(s): Breast Cancer General Exam - General Exam Comments Initial Comments: Visual Physical Exam Vital signs reviewed General: Well-appearing, nontoxic, no acute distress. Head: Normocephalic, atraumatic Eyes: PERRLA, EOMI ENT: Airway patent Chest: Nonlabored breathing Skin: No visual rash, normal skin tone Neuro: Alert and oriented 3 Musculoskeletal: No gross abnormalities Limitations: no limitations General appearance: alert, in no apparent distress Head exam: Present: atraumatic, normocephalic, normal inspection ENT exam: Present: normal exam, mucous membranes moist Respiratory exam: Present: normal lung sounds bilaterally. Absent: respiratory distress, wheezes, rales, rhonchi, stridor Cardiovascular Exam: Present: regular rate, normal rhythm, normal heart sounds. Absent: systolic murmur, diastolic murmur, rubs, gallop, clicks Neurological exam: Present: alert, oriented X3 Psychiatric exam: Present: normal affect, normal mood Skin exam: Present: warm, dry, intact, normal color. Absent: rash Course Vital Signs 03/26/24 03/26/24 03/26/24 17:18 20:29 21:44 Temperature 98.2 F 98.8 F 98.7 F Pulse Rate 99 92 88 Respiratory 18 18 18 Rate Blood Pressure 127/73 123/86 122/78 O2 Sat by Pulse 98 99 100 Oximetry Chest Pain MDM - MDM I completed the quick note portion of this chart signed Adrienne Clancy PA-C Was pt. sent in by a medical professional or institution (, GAURANG, OVERLOCK SLEEVE SETTER, urgent care, hospital, or senior care...) When possible be specific @ -No Did you speak to anyone other than the patient for history (EMS, parent, family, police, friend...)? What history was obtained from this source @ -No Did you review nursing and triage notes (agree or disagree)? Why? @ -I reviewed and agree with nursing and triage notes Were old charts reviewed (outside hosp., previous admission, EMS record, old EKG, old radiological studies, urgent care reports/EKG's, senior care records)? Report findings @ -No old charts were reviewed Differential Diagnosis (chest pain, altered mental status, abdominal pain women, abdominal pain men, vaginal bleeding, weakness, fever, dyspnea, syncope, headache, dizziness, GI bleed, back pain, seizure, CVA, palpatations, mental hea lth, musculoskeletal)? @ -Differential Chest Pain: Stable Angina, Unstable Angina, STEMI, NSTEMI Aortic Dissection, Pneumothorax, Musculoskeletal, Esophageal Spasm GERD, Cholecystitis, Pancreatitis, Zoster, this is not meant to be an all-inclusive list. EKG interpreted by me (3pts min.). @ -As above X-rays interpreted by me (1pt min.). @ -Chest x-ray negative for acute process CT interpreted by me (1pt min.). @ -None done U/S interpreted by me (1pt. min.). @ -None done What testing was considered but not performed or refused? (CT, X-rays, U/S, labs)? Why? @ -D-dimer not recommended per PERC criteria What meds were considered but not given or refused? Why? @ -None Did you discuss the management of the patient with other professionals (professionals i.e. , GAURANG, OVERLOCK SLEEVE SETTER, lab, RT, psych nurse, social human services assistants, technical sales manager, teacher, driver's license reviewing officer, case supervisor)? Give summary @ -No Was smoking cessation discussed for >3mins.? @ -No Was critical care preformed (if so, how long)? @ -No Were there social determinants of health that impacted care today? How? (Homelessness, low income, unemployed, alcoholism, drug addiction, transportation, low edu. Level, literacy, decrease access to med. care, correction, rehab)? @ -No Was there de-escalation of care discussed even if they declined (Discuss DNR or withdrawal of care, Hospice)? DNR status @ -No What co-morbidities impacted this encounter? (DM, HTN, Smoking, COPD, CAD, Cancer, CVA, ARF, Chemo, Hep., AIDS, mental health diagnosis, sleep apnea, morbid obesity)? @ -None Was patient admitted / discharged? Hospital course, mention meds given and route , prescriptions, significant lab abnormalities, going to OR and other pertinent info. @ -Discharge. This is a 38-year-old female with history of hyperlipidemia presenting with intermittent chest pain x 2 weeks. Patient is currently asymptomatic. Vital signs within acceptable limits. EKG reveals normal sinus rhythm with no ST changes. Lab work largely unremarkable. Chest x-ray reveals no acute process. Results discussed with patient. I believe it is safe to discharge patient home with close outpatient follow-up. Appropriate return precautions and follow-up care discussed. Case was discussed with my ED attending Dr. Graham. Undiagnosed new problem with uncertain prognosis? @ -No Drug Therapy requiring intensive monitoring for toxicity (Heparin, Nitro, Insulin, Cardizem)? @ -No Were any procedures done? @ -No Diagnosis/symptom? @ -Chest pain Acute, or Chronic, or Acute on Chronic? @ -Acute Uncomplicated (without systemic symptoms) or Complicated (systemic symptoms)? @ -Uncomplicated Side effects of treatment? @ -No Exacerbation, Progression, or Severe Exacerbation? @ -No Poses a threat to life or bodily function? How? (Chest pain, [place], [place], pneumonia, PE, COPD, DKA, ARF, appy, cholecystitis, CVA, Diverticulitis, Homicidal, Suicidal, threat to staff... and all critical care pts) @ -Not at this time Disposition Clinical Impression: Chest pain Disposition: HOME SELF-CARE Condition: Stable Instructions (If sedation given, give patient instructions): Chest Pain (ED) Additional Instructions: Follow-up with PCP and cardiology as discussed. Please return to the Emergency Department if symptoms worsen or any other concerns. Is patient prescribed a controlled substance at d/c from ED?: No Referrals: Roxie Johnson MD [Primary Care Provider] - 1-2 days [facility] [Provider Group] - 1-2 days Time of Disposition: 21:31
--- NOTE | 2024-03-26 19:04 | XR ---
EXAMINATION TYPE: XR chest 2V DATE OF EXAM: 03/26/2024 7:00 PM CLINICAL INDICATION:Female, 38 years old with history of chest pain; [facility] COMPARISON: Chest radiographs from 04/18/2023 TECHNIQUE: XR chest 2V Frontal and lateral views of the chest. FINDINGS: Lungs/Pleura: There is no evidence of pleural effusion, focal consolidation, or pneumothorax. Pulmonary vascularity: Unremarkable. Heart/mediastinum: Cardiomediastinal silhouette is unremarkable. Musculoskeletal: No acute osseous pathology. IMPRESSION: No acute cardiopulmonary disease/process. [facility], , 03/26/2024 7:02 PM
[2024-03-26 19:56] LABS: Basophils # (A) 0.1 k/uL (0-0.2); Basophils % (A) 1 %; Eosinophils # (A) 0.2 k/uL (0-0.7); Eosinophils % (A) 2 %; HCT 44.2 % (34.0-46.0); HGB 14.2 gm/dL (11.4-16.0); Lymphocytes % (A) 22 %; MCH 25.1 pg (25.0-35.0); MCHC 32.1 g/dL (31.0-37.0); MCV 78.1 fL (80.0-100.0); Monocytes # (A) 0.5 k/uL (0-1.0); Monocytes % (A) 5 %; Neutrophils # (A) 6.5 k/uL (1.3-7.7); Neutrophils % (A) 68 %; Platelet Count 475 k/uL (150-450); RBC 5.66 m/uL (3.80-5.40); RDW 13.4 % (11.5-15.5); WBC 9.5 k/uL (3.8-10.6)
[2024-03-26 20:15] LABS: ALT 40 U/L (4-34); AST 29 U/L (14-36); African American GFR (CKD) >90 (>60 ml/min/1.73 sqM); Albumin 4.6 g/dL (3.5-5.0); Alkaline Phosphatase 90 U/L (38-126); Anion Gap 8 mmol/L; Blood Urea Nitrogen 13 mg/dL (7-17); Carbon Dioxide 28 mmol/L (22-30); Chloride 102 mmol/L (98-107); Glucose 104 mg/dL (74-99); Magnesium 2.1 mg/dL (1.6-2.3); Non-African American GFR(CKD) >90 (>60 ml/min/1.73 sqM); Potassium 4.3 mmol/L (3.5-5.1); Sodium 138 mmol/L (137-145); Total Bilirubin 0.3 mg/dL (0.2-1.3)
[2024-03-26 20:16] LABS: INR 0.9 (<1.2); Partial Thromboplastin Time 23.2 sec (22.0-30.0); Prothrombin Time 9.7 sec (10.0-12.5)
[2024-03-26 21:45] VITALS: BP 122/78; PULSE 88; TEMP 98.7
== END 2024-03-26 21:45 | disposition home or self-care (01) ==
LOC: EC 17:00
DX: R07.9 Chest pain, unspecified (principal); Z88.8 Allergy status to other drugs, medicaments and biological substances
CPT/HCPCS: 36415; 71046; 80053; 81025; 83735; 84484; 85025; 85610; 85730; 93005; 99285

== ENCOUNTER → 2024-07-09 | Outpatient (CLI) | payer OTHER ==
[2024-07-09 14:43] VITALS: BP 110/73; PULSE 91; RESP 18; TEMP 98.3
--- NOTE | 2024-07-09 15:07 | P.SLEEP ---
History of Present Illness DATE: 07/09/2024 CONSULTATION/NEW PATIENT EVALUATION HISTORY OF PRESENT ILLNESS/SLEEP-WAKE EVALUATION: 38-year-old lady had been e valuated in the sleep center for possible obstructive sleep apnea hypopnea syndrome. SLEEP SCHEDULE: Usually sleep schedule from midnight until 1011 AM. FALLING ASLEEP: Usually no significant problems with falling asleep. DURING SLEEP: Patient has loud snoring, witnessed episodes of stop breathing during sleep. Patient wakes up from sleep up to 4 times with up to 3 episodes of nocturia. Positive history of choking, gasping for air, grinding teeth, dry mouth, palpitations. Positive symptoms of restless leg. No history of hypnogogical hallucinations, sleep paralysis, or cataplexy. DURING THE DAY/WAKE STATE: In the morning patient wake up tired, has difficulties to pay attention, has problems with memory, concentration.. [place] sleepiness scale is significantly increased to 16. Patient may take up to several naps during the day. PAST MEDICAL HISTORY: PTSD, hyperlipidemia, right eye blindness. PAST SURGICAL HISTORY: Cholecystectomy, tubal ligation, right eye surgery for retinal detachment. MEDICATIONS: Oxcarbazepine 300 mg twice a day, trazodone 50 mg once a day, ferrous sulfate 325 mg 3 times per week, hydroxyzine 50 mg twice a day, venlafaxine 225 mg once a day, pantoprazole 20 mg once a day, atorvastatin 10 mg once a day, gabapentin, prazosin. SOCIAL HISTORY: Please see below. FAMILY HISTORY: Please see below. REVIEW OF SYSTEMS: Multiple awakenings from sleep, snoring, sleepiness during the day. No fevers. No double vision. No recent chest pain. No shortness of breath. No abdominal pain. No bleeding episodes. No blood in urine. No seizure episodes. PHYSICAL EXAMINATION: GENERAL: A pleasant patient without any distress. VITAL SIGNS: Please see below, weight 225.8 pounds, BMI 36.3. HEENT: PERRLA, EOMI. Evaluation of oropharynx showed tongue protrudes midline, low position of soft palate Mallampati 4. NECK: Supple. No JVD. Thyroid is not palpable. 16.5 inches in circumference. LUNGS: Clear to percussion and to auscultation. Good air exchange. No wheezing or rhonchi. HEART: S1, S2 regular. No murmurs, gallops or rubs. ABDOMEN: Soft and nontender. Bowel sounds are present. No organomegaly appreciated. EXTREMITIES: No clubbing or cyanosis. MARKETING PROJECT COORDINATOR: Awake, alert, and oriented x3. Cranial nerves 2 to 7 intact. There is no fasciculation or atrophy noted. No focal deficits observed. ASSESSMENT: 1. Loud snoring, witnessed episodes of stop breathing during the sleep, extremely low position of soft palate Mallampati 4, wide neck 16.5 inches in circumference, sleepiness with [place] Sleepiness Scale of 16. Obstructive sleep apnea hypopnea syndrome. 2. History of depression. 3. History of PTSD. 4. Hyperlipidemia. 5 right eye blindness. 6 . Status post right eye surgery for retinal detachment. 7. Status post cholecystectomy. 8. Status post tubal ligation. 9., BMI 36.3 PLAN: 1. Polysomnography for evaluation of patient's breathing during sleep. 2. Following plan after reading sleep study. 3. Preferable position during sleep on the side. 4. No driving if patient feels any sleepiness. Patient is aware of civil and criminal liability for unsafe driving. 5. Sleep hygiene with regular sleep time for at least 7.5-8 hours. 6. Watching and losing weight. Thank you very much for referring this patient for consultation. Sincerely, Kip So MD, PhD, FAASM. Diplomat of [place] [employer], Sleep Medicine Board by [place] [employer] [place] [employer] [facility] [place] cc: Roxie Johnson MD Past Medical History Past Medical History: GERD/Reflux, Sleep Apnea/CPAP/BIPAP Additional Past Medical History / Comment(s): History of Kidney Infection, Hearing impairment/issues, Migraines, blind R eye, Autism, Depression, Anxiety, BiPolar, PTSD, Iron Deficient, Herniated disc - back pain, fatty liver History of Any Multi-Drug Resistant Organisms: None Reported Past Surgical History: Cholecystectomy, Tubal Ligation Additional Past Surgical History / Comment(s): Eye Surgery Past Anesthesia/Blood Transfusion Reactions: No Reported Reaction Past Psychological History: Anxiety, Bipolar, Depression, PTSD Smoking Status: Never smoker Past Alcohol Use History: Occasional Past Drug Use History: None Reported - Past Family History Father Family Medical History: Cancer, Coronary Artery Disease (CAD), Hypertension, Myocardial Infarction (NM) Additional Family Medical History / Comment(s): Stomach Cancer Mother Family Medical History: Cancer Additional Family Medical History / Comment(s): Breast Cancer Medications and Allergies Home Medications Medication Instructions Recorded Confirmed Type Ergocalciferol [Vitamin D2 (1250 1,250 mcg PO WE 11/24/21 02/25/23 History Mcg = 96215 Iu)] Prednisolone Acetate/Pf 1 drop RIGHT EYE DAILY 11/24/21 02/25/23 History [Prednisolone Acet 1% Eye Drop] Atorvastatin [Lipitor] 10 mg PO HS 07/04/22 02/25/23 History Famotidine [Pepcid] 40 mg PO BID 07/04/22 02/25/23 History [place] Carbonate 300 mg PO BID 30 Days #60 cap 07/10/22 02/25/23 Rx Prazosin [Minipress] 1 mg PO HS 30 Days #30 cap 07/10/22 02/25/23 Rx Venlafaxine HCl [Effexor XR] 225 mg PO DAILY 30 Days #30 tab 07/10/22 02/25/23 Rx tiZANidine [Zanaflex] 4 mg PO BID PRN 14 Days #28 tab 07/10/22 02/25/23 Rx Butalb/Acetaminophen/Caffeine 1 tab PO Q4H PRN 02/25/23 02/25/23 History [Fioricet 50-325-40] Polymyxin B-Trimeth Sulf Ophth 1 drop RIGHT EYE DAILY 02/25/23 02/25/23 History [Polytrim Opthalmic] traZODone HCL 100 mg PO HS 02/25/23 02/25/23 History Amoxic-Pot Clav 875-125Mg 1 tab PO Q12HR #20 tab 04/18/23 Rx [Augmentin 875-125] Ketorolac 0.5% Ophth Soln [Acular 1 drops BOTH EYES QID #3 ml 06/08/23 Rx 0.5%] Tobramycin 0.3% Ophth Soln [Tobrex 1 drop BOTH EYES Q4H 7 Days #5 ml 06/08/23 Rx 0.3% Ophth Soln] Allergies Allergy/AdvReac Type Severity Reaction Status Date / Time metoclopramide [From Reglan] AdvReac Rapid Verified 06/16/23 16:18 Heart Rate/Panic Attack Physical Exam Vitals: Vital Signs Temp Pulse Resp BP Pulse Ox 07/09/24 14:40 98.3 F 91 18 110/73 96 Intake and Output 07/08/24 07/09/24 07/09/24 22:59 06:59 14:59 Other: Weight 102.285 kg Sleep Note - Sleep Data ESS Total: 16 - Sleep Note Sleep Note: Temperature: 98.3 F Pulse Rate: 91 Respiratory Rate: 18 Blood Pressure: 110/73 SpO2: 96 Height: 5 ft 6 in Weight: 102.285 kg BMI: Neck Circumference: 16.5
== END ==
LOC: 3 N SLEEP 13:56
PROVIDERS: ATTEND Internal Medicine
DX: G47.33 Obstructive sleep apnea (adult) (pediatric) (principal); E78.5 Hyperlipidemia, unspecified; H54.40 Blindness, one eye, unspecified eye; Z86.59 Personal history of other mental and behavioral disorders; Z86.51 Personal history of combat and operational stress reaction; Z90.49 Acquired absence of other specified parts of digestive tract; Z98.51 Tubal ligation status; Z98.890 Other specified postprocedural states; Z88.8 Allergy status to other drugs, medicaments and biological substances
CPT/HCPCS: 99211

== ENCOUNTER → 2024-08-28 | Outpatient (CLI) | payer OTHER ==
--- NOTE | 2024-08-31 07:18 | MM ---
Reason for Exam: Screening (asymptomatic). Last mammogram was performed 1 year(s) and 4 month(s) ago. Patient History: Menarche at age 10. First Full-Term at age 26. Premenopausal. Hormonal Contraceptives, from age 21 until age 32. Mother had breast cancer, age 47. Risk Values: Christy 5 year model risk: 1.2%. NCI Lifetime model risk: 18.6%. Prior Study Comparison: 04/01/2020 Bilateral Screening Mammogram, [facility]. 02/06/2022 Bilateral MG screening mammo w CAD, [facility]. 04/18/2023 Bilateral MG 3D diag mammo w/cad NATALIE, [facility]. Tissue Density: There are scattered areas of fibroglandular density. Findings: Analyzed By CAD. Right breast: There is no suspicious group of microcalcifications or new suspicious mass. Left breast: * Asymmetry MLO view middle depth and anterior depth measuring 4.8 and 3.0 cm from the nipple. * Asymmetry CC view 5.3 cm from the nipple and 5.5 cm from the nipple. Overall Assessment: Incomplete: need additional imaging evaluation, BI-RAD 0 Management: Diagnostic Mammogram of the left breast. [facility] will attempt to contact patient to return for supplemental views and ultrasound if indicated. Patient should continue monthly self-breast exams. A clinical breast exam by your physician is recommended on an annual basis. This exam should not preclude additional follow-up of suspicious palpable abnormalities. Note on Christy scores and lifetime risk: 1. A Christy score greater than 3% is considered moderate risk. If this is the case, consider specialist referral to assess eligibility for a risk reducing agent. 2. If overall lifetime risk for the development of breast cancer is 20% or higher, the patient may qualify for future screening with alternating mammogram and breast MRI. [facility], , 08/31/2024 7:14 AM. Electronically signed and approved by: Guerrero Osorio DO
== END | disposition home or self-care (01) ==
LOC: RADMAMWWP 16:09
PROVIDERS: ATTEND Family Medicine
DX: Z12.31 Encounter for screening mammogram for malignant neoplasm of breast (principal); R92.323 Mammographic fibroglandular density, bilateral breasts; Z92.0 Personal history of contraception; Z80.3 Family history of malignant neoplasm of breast
CPT/HCPCS: 77067

== ENCOUNTER → 2024-08-31 | Outpatient (CLI) | payer OTHER ==
--- NOTE | 2024-09-03 15:40 | P.PCN ---
Description of Procedure: CLINICAL: A home sleep apnea test has been done for confirmation of possible obstructive sleep apnea-hypopnea syndrome. DESCRIPTION OF PROCEDURE: RESULTS: Recording time was 6 hours 35 minutes. Evaluation time was 6 hours 01 minutes. Evaluation time is sufficient for making conclusion about results of the test. Raw data of sleep recording has been reviewed and is adequate. Respiratory channel showed 376 apneas and 49 hypopneas. Apnea-hypopnea index was 17.5 per hour. Pulse rate in the range between minimum 69, maximum 118, average 91 by computer calculation. Lowest desaturation was 78%. IMPRESSION: 1. Extremely severe Obstructive Sleep Apnea Hypopnea Syndrome. Please see other impressions from consultation. PLAN: 1. The patient should have PAP titration for correction of respiratory abnormallities during sleep. 2. Sleep hygiene with regular time in bed for at least 8 hours. 3. Watching and losing weight. 4. No driving if feeling any sleepiness. Thank you very much for allowing me to participate in the management of your patient. Sincerely, Kip So MD, PhD, FAASM Diplomat of [place] [employer] Special[employer] Sleep Medicine Board of [place] [employer] of Internal Medicine Dipping Machine Operator [facility] [place] cc: Roxie Johnson MD, Minda Bhandari [facility]
== END ==
LOC: 3 N SLEEP 16:18
PROVIDERS: ATTEND Internal Medicine
DX: G47.33 Obstructive sleep apnea (adult) (pediatric) (principal); Z88.8 Allergy status to other drugs, medicaments and biological substances

== ENCOUNTER → 2024-09-01 | Outpatient (CLI) | payer OTHER ==
--- NOTE | 2024-09-01 08:23 | MM ---
Reason for Exam: Additional evaluation requested from abnormal screening. Last screening mammogram was performed less than 1 month ago. Patient History: Menarche at age 10. First Full-Term at age 26. Premenopausal. Hormonal Contraceptives, from age 21 until age 32. Mother had breast cancer, age 47. Risk Values: Christy 5 year model risk: 1.2%. NCI Lifetime model risk: 18.6%. Prior Study Comparison: 02/06/2022 Bilateral MG screening mammo w CAD, [facility]. 04/18/2023 Bilateral MG 3D diag mammo w/cad NATALIE, [facility]. 08/28/2024 Bilateral MG screening mammo w CAD, [facility]. Tissue Density: Left: There are scattered areas of fibroglandular density. Findings: Analyzed By CAD. Bilateral asymmetries compresses out on spot compression imaging. No suspicious masses, calcifications or distortions. Overall Assessment: Benign, BI-RAD 2 Management: Screening Mammogram of both breasts in 1 year. Results were given to the patient verbally at the time of exam. Patient should continue monthly self-breast exams. A clinical breast exam by your physician is recommended on an annual basis. This exam should not preclude additional follow-up of suspicious palpable abnormalities. Note on Christy scores and lifetime risk: 1. A Christy score greater than 3% is considered moderate risk. If this is the case, consider specialist referral to assess eligibility for a risk reducing agent. 2. If overall lifetime risk for the development of breast cancer is 20% or higher, the patient may qualify for future screening with alternating mammogram and breast MRI. [facility], , 09/01/2024 8:20 AM. Electronically signed and approved by: Guerrero Osorio DO
== END | disposition home or self-care (01) ==
LOC: RADMAMWWP 08:03
PROVIDERS: ATTEND Family Medicine
DX: R92.8 Other abnormal and inconclusive findings on diagnostic imaging of breast (principal); R92.322 Mammographic fibroglandular density, left breast; Z80.3 Family history of malignant neoplasm of breast; Z92.0 Personal history of contraception
CPT/HCPCS: 77065; G0279; 77061